=== PATIENT | female | born 1960 | race Caucasian/White ===

== ENCOUNTER 2019-10-26 06:00 | Outpatient (RCR) | payer OTHER, SELFPAY | END 2019-11-25 00:01 | LOC: TPT 06:00 | PROVIDERS: Family Provider Family Medicine; Visit Provider Anesthesiology Pain Medicine | DX: M48.02 Spinal stenosis, cervical region (principal) | CPT/HCPCS: 97110 ×4; 97140 ×2; 97164; 97530 ×3; G0283 ×3 ==

== ENCOUNTER → 2019-12-22 11:28 | Outpatient (BNVA) | payer SELFPAY | PROVIDERS: Family Provider Family Medicine; PCP Family Medicine; Visit Provider Internal Medicine Rheumatology | DX: L93.1 Subacute cutaneous lupus erythematosus (principal) | CPT/HCPCS: 82565; 84460; 85025; 85651; 86140; 86160 ==

== ENCOUNTER → 2020-01-12 10:30 | Outpatient (BNVA) | payer SELFPAY | PROVIDERS: Family Provider Family Medicine; PCP Family Medicine; Visit Provider Internal Medicine Rheumatology | DX: L93.1 Subacute cutaneous lupus erythematosus (principal); Z79.899 Other long term (current) drug therapy; D72.818 Other decreased white blood cell count; K75.4 Autoimmune hepatitis; K74.69 Other cirrhosis of liver | CPT/HCPCS: 36415; 99214 ==

== ENCOUNTER → 2020-01-12 12:00 | Outpatient (BNVA) | payer SELFPAY | PROVIDERS: Family Provider Family Medicine; PCP Family Medicine; Visit Provider Internal Medicine Rheumatology | DX: Z79.899 Other long term (current) drug therapy (principal); M32.9 Systemic lupus erythematosus, unspecified | CPT/HCPCS: 81001; 82306; 82565; 82570; 84156; 85025; 86160 ==

== ENCOUNTER → 2020-01-20 12:24 | Outpatient (BNVA) | payer OTHER, SELFPAY | PROVIDERS: Family Provider Family Medicine; PCP Family Medicine; Visit Provider Specialist | DX: M79.7 Fibromyalgia (principal); G43.909 Migraine, unspecified, not intractable, without status migrainosus; Z87.891 Personal history of nicotine dependence | CPT/HCPCS: 20552; 99214; J1030; J3490 ==

== ENCOUNTER → 2020-01-28 15:26 | Outpatient (BNVA) | payer SELFPAY | PROVIDERS: Family Provider Family Medicine; PCP Family Medicine; Visit Provider Nurse Practitioner Family | DX: K57.92 Diverticulitis of intestine, part unspecified, without perforation or abscess without bleeding (principal) | CPT/HCPCS: 80053; 85025 ==

== ENCOUNTER 2020-02-05 14:14 | Outpatient (CLI) | payer SELFPAY ==
--- NOTE | 2020-02-05 16:30 | CT_ITS ---
WS: [id number] CT CERVICAL SPINE HISTORY: Neck pain TECHNIQUE: Contiguous 2.5 mm axial imaging performed through the entire cervical spine. Sagittal and coronal reformats also performed. All CT scans at [facility] use at least one of these do se optimization techniques: automated exposure control; mA and/or kV adjustment per patient size (inc ludes targeted exams where dose is matched to clinical indication); or iterative reconstruction. DLP: 2193.28 mGycm COMPARISON: 02/25/2018 and MRI 1220 12/03/2018 Straightening of the normal cervical lordosis. Large anterior bridging osteophytes from C3 through C7 . Smaller osteophytes extend posteriorly. Quality of this examination is limited by body habitus. Make Up Editor niectomy site in the posterior LEFT occipital region. Craniocervical junction is normally aligned. Mild disc space narrowing from C3-3-4 through C6-7. No f ractures. Facet joints are normally aligned. C2-C3: Normal. C3-C4: Mild osteophytic ridging and shallow central disc protrusion. Moderate bilateral foraminal lia nosis due to facet disease. C4-C5: Mild osteophytic ridging and facet arthropathy. No stenosis. C5-C6: Diffuse osteophytic ridging. Large osteophytes extend posteriorly and into the foramen. Osteop hyte encroachment upon the ventral thecal sac resulting in severe central and bilateral foraminal lia nosis. C6-C7: Osteophytic ridging asymmetric to the LEFT. Moderate LEFT subarticular recess stenosis and LEF T foraminal stenosis. C7-T1: Normal. Lung apices are clear. Paravertebral soft tissues are negative. CT/CT cervical spin wo con* [id number] IMPRESSION: 1. Mild progression of osteophytosis and degenerative changes since 08/12/2018. 2. Severe central and bilateral foraminal stenosis at C5-6. 3. Moderate LEFT subarticular recess and foraminal stenosis at C6-7. 4. Moderate bilateral foraminal stenosis at C3-4.
== END 2020-02-05 14:15 | disposition home or self-care (01) ==
LOC: RADWPI 14:16
PROVIDERS: Family Provider Family Medicine; PCP Family Medicine; Visit Provider Licensed Practical Nurse
DX: M54.2 Cervicalgia (principal); M50.020 Cervical disc disorder with myelopathy, mid-cervical region, unspecified level; M47.892 Other spondylosis, cervical region; M48.02 Spinal stenosis, cervical region
CPT/HCPCS: 72125

== ENCOUNTER → 2020-03-02 12:43 | Outpatient (BNVA) | payer SELFPAY | PROVIDERS: Family Provider Family Medicine; PCP Family Medicine; Referring Provider Licensed Practical Nurse; Visit Provider Psychiatry & Neurology Neurology | DX: M54.2 Cervicalgia (principal); M79.602 Pain in left arm; Z87.891 Personal history of nicotine dependence | CPT/HCPCS: 95886; 95910 ==

== ENCOUNTER → 2020-04-13 15:24 | Outpatient (BNVA) | payer SELFPAY | PROVIDERS: Family Provider Family Medicine; PCP Family Medicine; Visit Provider Specialist | DX: M50.020 Cervical disc disorder with myelopathy, mid-cervical region, unspecified level (principal); K75.4 Autoimmune hepatitis; G43.711 Chronic migraine without aura, intractable, with status migrainosus; Z87.891 Personal history of nicotine dependence | CPT/HCPCS: 99214 ==

== ENCOUNTER → 2020-06-15 13:24 | Outpatient (BNVA) | payer SELFPAY | PROVIDERS: Family Provider Family Medicine; PCP Family Medicine; Visit Provider Internal Medicine Rheumatology | DX: M32.9 Systemic lupus erythematosus, unspecified (principal); M19.90 Unspecified osteoarthritis, unspecified site; Z79.899 Other long term (current) drug therapy | CPT/HCPCS: 80076; 82565; 85025; 85651; 86140 ==

== ENCOUNTER → 2020-07-19 15:03 | Outpatient (BNVA) | payer SELFPAY | PROVIDERS: Family Provider Family Medicine; PCP Family Medicine; Visit Provider Family Medicine | DX: M54.5 Low back pain (principal); D22.9 Melanocytic nevi, unspecified; Z68.43 Body mass index [BMI] 50.0-59.9, adult; F17.211 Nicotine dependence, cigarettes, in remission; Z71.89 Other specified counseling | CPT/HCPCS: 72100 ==

== ENCOUNTER → 2020-08-12 10:38 | Outpatient (BNVA) | payer SELFPAY | PROVIDERS: Family Provider Family Medicine; PCP Family Medicine; Visit Provider Internal Medicine Rheumatology | DX: Z79.899 Other long term (current) drug therapy (principal) | CPT/HCPCS: 80076; 82565; 85025; 85651; 86140 ==

== ENCOUNTER → 2020-08-24 14:37 | Outpatient (BNVA) | payer SELFPAY | PROVIDERS: Family Provider Family Medicine; PCP Family Medicine; Visit Provider Internal Medicine Rheumatology | DX: L93.1 Subacute cutaneous lupus erythematosus (principal); M79.7 Fibromyalgia; E66.01 Morbid (severe) obesity due to excess calories; K74.69 Other cirrhosis of liver; Z79.899 Other long term (current) drug therapy; D47.3 Essential (hemorrhagic) thrombocythemia; Z68.43 Body mass index [BMI] 50.0-59.9, adult | CPT/HCPCS: 99214 ==

== ENCOUNTER → 2020-08-25 16:08 | Outpatient (BNVA) | payer SELFPAY | PROVIDERS: Family Provider Family Medicine; PCP Family Medicine; Visit Provider Nurse Practitioner Family | DX: M25.572 Pain in left ankle and joints of left foot (principal); R60.9 Edema, unspecified | CPT/HCPCS: 73610 ==

== ENCOUNTER 2020-08-30 01:36 | Emergency (ER) | payer SELFPAY ==
[2020-08-30 01:40] VITALS: BP 172/72; PULSE 112; RESP 28; TEMP 36.6; O2SAT 94; BMI 48.4
--- NOTE | 2020-08-30 01:54 | CTR_ITS ---
PROCEDURE INFORMATION: Exam: CT Head Without Contrast Exam date and time: 08/30/2020 1:59 AM Age: 59 years old Clinical indication: Dizziness; Prior surgery; Surgery date: 6+ months; Surgery type: Brain tumor removed; Additional info: Dizzy TECHNIQUE: Imaging protocol: Computed tomography of the head without contrast. Radiation optimization: All CT scans at this facility use at least one of these dose optimization techniques: automated exposure control; mA and/or kV adjustment per patient size (includes targeted exams where dose is matched to clinical indication); or iterative reconstruction. COMPARISON: CT head wo con* [id number] 02/25/2018 4:58 PM RADIATION DOSE METRICS: Total DLP (mGy-cm): 790.03 FINDINGS: Brain: No acute intracranial hemorrhage or mass effect. No definite acute infarct by CT. MRI could be more sensitive/specific for detection, as clinically directed. Cerebral ventricles: Ventricle size is normal for age. Bones/joints: No definite acute skull fracture. Low left occipital craniotomy again present. Paranasal sinuses: Included paranasal sinuses are essentially clear. Mastoid air cells: No significant acute finding. Auditory system: Asymmetric enlargement of the left internal auditory canal, not significantly changed. Suspect this is related to presumed prior surgery for left acoustic neuroma. If clinically needed, MRI would be more sensitive for detecting residual or recurrence neoplasm. Vasculature: Vascular calcifications in the internal carotid and vertebral basilar systems. CT/CT head wo con* [id number] IMPRESSION: 1. No acute intracranial hemorrhage or mass effect. 2. No definite acute infarct by CT, see above. 3. Postsurgical changes as discussed above. 4. Other findings discussed above. Radiation Dose CTDIVOL = (mGy): DLP = 790.03 (mGy-cm)
--- NOTE | 2020-08-30 01:54 | XR_ITS ---
WS: [id number] Portable AP upright chest, 08/30/2020 Clinical Data: dizzy Comparison: Portable chest, 11/07/2018. Findings: No nodules, masses or effusions are seen. The heart is normal. The pulmonary vascularity is not increased. No pneumonia or pneumothorax is seen. XR/XR chest 1V portable [id number] Impression: Negative chest.
--- NOTE | 2020-08-30 01:55 | ECG_ITS ---
[facility] Test Date: 2020-08-30 Pat Name: Verónica Pat Department: Room: Gender: Female Senior Officer: : 1960 Requested By: Tim Purvis Order Number: [id number] Margarito MD: Jhonathan Mendoza M.D. Measurements Intervals [place] Rate: 90 P: -5 TN: 116 QRS: 46 QRSD: 87 T: 56 QT: 350 QTc: 430 Interpretive Statements SINUS RHYTHM WITH SHORT TN INTERVAL LOW QRS VOLTAGE IN PRECORDIAL LEADS [QRS DEFLECTION < 1.0 mV IN CHEST LEADS] Compared to ECG 07/12/2019 17:59:04 T-wave abnormality no longer present Electronically Signed On 08-30-2020 17:27:24 CDT by Jhonathan Mendoza M.D. [id number]
[2020-08-30] MEDS: sodium chloride 0.9% 1,000 ML 999 ML IV (02:40)
--- NOTE | 2020-08-30 02:43 | W.ED.DIZZY ---
HPI - Dizziness General: Chief Complaint: Dizziness Stated Complaint: DIZZY Time Seen by Provider: 08/30/20 01:43 History of Present Illness: HPI Narrative: 59-year-old female who experienced sudden onset of dizziness and blurred vision around midnight, when she got up to change clothes before bed. Notes that she could not see the shorts she was tried to put on for a second because of blurred vision. She called an ambulance, and after the ambulance arrived, her vision began to improve. She was able to see to walk outside and get on the ambulance herself. She states that she still feels somewhat dizzy. But not nearly as dizzy as she did when she called the ambulance. She denies any weakness or numbness. She does state that she has had a swollen left more than right lower extremity, for which she was placed on Lasix 3 days ago. MD elicited complaint: dizziness and lightheadedness Timing: sudden onset Severity: moderate Description: sense of movement, room spinning and lightheadedness Context: change in medication History of similar symptoms: No Relieving factors: nothing Associated symptoms: Reports nausea; Denies change in hearing, chest pain, chills, diaphoresis, fevers/chills, headache(s) or vomiting Associated neuro symptoms: Deny difficulty speaking, dysphagia, extremity weakness, facial weakness or numbness in extremities Review of Systems Const: Denies: chills or diaphoresis Eyes: Denies: change in vision or blurry vision ENMT: Denies: change in hearing Card: Denies: chest pain Resp: Denies: dyspnea, productive cough, non-productive cough or wheezing GI: Reports: nausea; Denies: vomiting or dysphagia : Denies: dysuria or hematuria Musc: Denies: neck pain or joint warmth Skin/Breast: Denies: rash, pruritus or erythema Neuro: Denies: headache(s) or numbness in extremities Psych: Denies: anxiety PFSH ED PFSH: Medical History (Updated 08/30/20 @ 04:40 by Tim Armijo DO) Autoimmune hepatitis Cervical disc disorder with myelopathy of mid-cervical region Cirrhosis of liver Fibromyalgia High risk medication use Immunization counseling Leukopenia SLE (systemic lupus erythematosus) Spondylolisthesis, cervical region 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 Occipital craniotomy History of surgery on arm LEFT Family History Other CAD (coronary artery disease) Cancer Hypertension Stroke Denies family history of Rheumatoid arthritis Diabetes Lupus Social History Smoking and tobacco status: former smoker Alcohol intake: never Lives independently: Yes Marital status: Current occupational status: unemployed History of recent travel: No Physical Exam Const: COMMON NORMALS: patient oriented x3 GENERAL APPEARANCE: well developed ORIENTATION/CONSCIOUSNESS: Yes oriented to person, Yes oriented to place and Yes oriented to time HENMT: COMMON NORMALS: normocephalic and external ears normal HEAD & SCALP: normocephalic EXTERNAL EAR: Yes external ears normal Eye: COMMON NORMALS: Equal, round and reactive pupils present, EOMs intact bilaterally and conjunctivae normal EYELID: eyelids normal CONJUNCTIVA: Yes conjunctivae normal PUPIL: Yes Equal, round and reactive pupils present Neck/C-Spine: GENERAL: No tracheal deviation Chest: COMMONS NORMALS: normal inspection of the chest CHEST: No tenderness Resp: COMMON NORMALS: clear to auscultation bilaterally EFFORT & INSPECTION: No tachypneic, No respiratory distress, No retractions, No uses accessory muscles and No tracheal deviation AUSCULTATION: clear to auscultation bilaterally, no rhonchi, no wheezes and lung sounds not diminished Cardio: COMMON NORMALS: regular rate and regular rhythm RATE: regular rate RHYTHM: regular rhythm HEART SOUNDS: no murmurs PERIPHERAL PULSES: radial pulses present GI: INSPECTION: No abdominal distension AUSCULTATION: No Hyperactive bowel sounds present and No Hypoactive bowel sounds present PALPATION: No Guarding due to palpation present (GI) and No Rigid due to palpation PERCUSSION: no dullness to percussion and no tympanic to percussion Neuro: COMMON NORMALS: patient oriented x3, moves all extremities, no focal motor deficits and no sensory deficits noted SENSORIUM/ORIENTATION: Yes oriented to person, Yes oriented to place and Yes oriented to time Psych: COMMON NORMALS: mental status grossly normal Skin: COMMON NORMALS: no rashes or lesions noted GENERAL SKIN EXAM: no rashes or lesions noted Course Vital Signs: Vital signs: Vital Signs Temperature 97.8 F 08/30/20 01:40 Pulse Rate 85 08/30/20 04:08 Respiratory Rate 16 08/30/20 04:08 Blood Pressure 119/9 08/30/20 04:08 Pulse Oximetry 95 08/30/20 04:08 MDM - Dizziness MDM Narrative: Medical decision making narrative: 59-year-old female with transient vision changes and dizziness. She is resolved in terms of symptoms currently. Her CT scan shows no acute intracranial hemorrhage or mass-effect. There are some postsurgical changes that appear chronic. There is no evidence of an infarct. Her NIH scale is essentially 0 now. Her other laboratory shows a white blood cell count of 3.6 with thrombocytopenia, which is an ongoing problem for her. Her creatinine is 1.6 which is just slightly above baseline. She is received some IV fluid here. Her blood pressure currently is 126/67. Her saturations are 95% on room air. With resolution of her symptoms, and findings above, we will allow her home. Lab Data: Labs: Lab Results 08/30/20 08/30/20 08/30/20 Range/Units 02:40 02:40 02:40 WBC 3.6 L (4.0-10.0) 10^3/ uL RBC 3.61 L (4.1-5.3) 10^6/u L Hgb 11.6 (11.5-15.3) g/dL Hct 35.6 L (37.0-47.0) % MCV 98.6 (81-99) fL MCH 32.1 (28.0-34.0) pg MCHC 32.6 (30.0-36.0) g/dL RDW 13.2 (12.1-15.1) % Plt Count 98 L (130-400) 10^3/c mm MPV 12.7 H (7.4-10.4) fL Neut % (Auto) 74.1 % Lymph % (Auto) 12.0 % [place] % (Auto) 10.9 % Eos % (Auto) 1.9 % Baso % (Auto) 0.8 % Neut # (Auto) 2.66 (1.8-7.7) 10^3/u L Lymph # (Auto) 0.4 L (0.8-4.8) 10^3/u L [place] # (Auto) 0.4 (0.2-0.9) 10^3/u L Eos # (Auto) 0.1 (0.0-0.8) 10^3/u L Baso # (Auto) 0.0 (0.0-0.1) 10^3/u L Nucleated RBC % (a uto) 0 % Nucleated RBCs # 0.0 /100WBC PT 13.30 (12.1-14.9) SECO NDS INR 0.98 (0.8-1.2) APTT 24.8 (23.9-36.7) SECO NDS Sodium 136 (136-145) mmol/L Potassium 4.2 (3.5-5.1) mmol/L Chloride 101 (98-107) mmol/L Carbon Dioxide 23 (22-29) mmol/L Anion Gap 16.2 (5-19) BUN 8 (8-23) mg/dL Creatinine 1.6 H (0.5-0.9) mg/dL GFR Calculation 32.9 L (90-130) mL/min Glucose 132 H (65-115) mg/dL Calculated Osmolal ity 282 L (285-295) mOsm/k g Calcium 9.6 (8.5-10.5) mg/dL Magnesium 1.8 (1.7-2.3) mg/dL Total Bilirubin 0.4 (0.15-1.2) mg/dL AST 22 (0-32) U/L ALT 21 (0-33) U/L Alkaline Phosphata se 76 (35-105) IU/L Creatine Kinase 94 (26-192) U/L NT-Pro-B Natriuret Pep 74 (0-125) pg/mL Total Protein 7.0 (6.6-8.7) g/dL Albumin 4.0 (3.5-5.2) g/dL Globulin 3.0 (1.3-4.6) g/dL Urine Color (Yellow) Urine Appearance (CLEAR) Urine pH (5-7) Ur Specific Gravit y (1.005-1.030) Urine Protein (Negative) Urine Glucose (UA) (Normal) Urine Ketones (Negative) Urine Blood (Negative) Urine Nitrate (Negative) Urine Bilirubin (Negative) Urine Urobilinogen (Negative) mg/dL Ur Leukocyte Kiara ase (Negative) 08/30/20 Range/Units 02:45 WBC (4.0-10.0) 10^3/ uL RBC (4.1-5.3) 10^6/u L Hgb (11.5-15.3) g/dL Hct (37.0-47.0) % MCV (81-99) fL MCH (28.0-34.0) pg MCHC (30.0-36.0) g/dL RDW (12.1-15.1) % Plt Count (130-400) 10^3/c mm MPV (7.4-10.4) fL Neut % (Auto) % Lymph % (Auto) % [place] % (Auto) % Eos % (Auto) % Baso % (Auto) % Neut # (Auto) (1.8-7.7) 10^3/u L Lymph # (Auto) (0.8-4.8) 10^3/u L [place] # (Auto) (0.2-0.9) 10^3/u L Eos # (Auto) (0.0-0.8) 10^3/u L Baso # (Auto) (0.0-0.1) 10^3/u L Nucleated RBC % (a uto) % Nucleated RBCs # /100WBC PT (12.1-14.9) SECO NDS INR (0.8-1.2) APTT (23.9-36.7) SECO NDS Sodium (136-145) mmol/L Potassium (3.5-5.1) mmol/L Chloride (98-107) mmol/L Carbon Dioxide (22-29) mmol/L Anion Gap (5-19) BUN (8-23) mg/dL Creatinine (0.5-0.9) mg/dL GFR Calculation (90-130) mL/min Glucose (65-115) mg/dL Calculated Osmolal ity (285-295) mOsm/k g Calcium (8.5-10.5) mg/dL Magnesium (1.7-2.3) mg/dL Total Bilirubin (0.15-1.2) mg/dL AST (0-32) U/L ALT (0-33) U/L Alkaline Phosphata se (35-105) IU/L Creatine Kinase (26-192) U/L NT-Pro-B Natriuret Pep (0-125) pg/mL Total Protein (6.6-8.7) g/dL Albumin (3.5-5.2) g/dL Globulin (1.3-4.6) g/dL Urine Color Yellow (Yellow) Urine Appearance Clear (CLEAR) Urine pH 5 (5-7) Ur Specific Gravit y 1.010 (1.005-1.030) Urine Protein Neg (Negative) Urine Glucose (UA) Norm (Normal) Urine Ketones Negative (Negative) Urine Blood Neg (Negative) Urine Nitrate Negative (Negative) Urine Bilirubin Neg (Negative) Urine Urobilinogen Norm (Negative) mg/dL Ur Leukocyte Kiara ase Negative (Negative) Discharge Plan Discharge Patient Disposition: Home Clinical Impression: Vertigo Condition: Stable Prescriptions: New meclizine 25 mg tablet 12.5 mg PO TID PRN (Reason: dizziness) Qty: 14 RF: 0 No Action bupivacaine (PF) 0.25 % (2.5 mg/mL) solution 2 ml peripheral nerve block ONCE Qty: 1 RF: 0 hydroxychloroquine 200 mg tablet 300 mg PO DAILY Qty: 45 RF: 3 olmesartan 20 mg tablet See Rx Instructions .ROUTE .COMPLEX Qty: 90 RF: 0 cyclobenzaprine 10 mg tablet See Rx Instructions .ROUTE .COMPLEX Qty: 60 RF: 5 potassium chloride 10 mEq capsule, extended release 10 meq PO DAILY Qty: 7 RF: 0 furosemide [Lasix] 20 mg tablet 20 mg PO QAM Qty: 7 RF: 0 mupirocin 2 % ointment 1 applic TOPICAL BID Qty: 22 RF: 0 sulfamethoxazole-trimethoprim [Bactrim DS] 800-160 mg tablet 1 tab PO BID 10 Days Qty: 20 RF: 0 propranolol 10 mg tablet 10 mg PO BID RF: 0 Ca-D3-mag fv-nqfq-yyh-stacia-bor [Calcium 600-D3 Plus (mag-zinc)] 600 mg calcium- 800 unit-50 mg tablet PO BID RF: 0 lactulose 10 gram/15 mL solution 20 gm PO QID RF: 0 escitalopram oxalate 20 mg tablet See Rx Instructions .ROUTE .COMPLEX Qty: 90 RF: 0 Discharge Orders: Discharge Order (Routine); Ordered 08/30/20 Ordered By: Tim Armijo Referrals: Stephanie Tipton MD [Primary Care Provider] - 4-7 days Discharge Diet: Advance as tolerated Discharge Activity: Increase activity as tolerated Patient Instructions: Vertigo (ED) Activity Restrictions/Additional Instructions: Return for any return of your symptoms such as dizziness, vision changes, weakness, trouble finding words, or other language problems, fever greater than 100, other concerning symptoms. Make sure you stay hydrated the next couple of days Coding Level of Care Code ED Poultry Processing Supervisor for Chg Fwd Exam Comprehensive
[2020-08-30 03:04] LABS: Basophils % 0.8 %; Eosinophils # 0.1 10^3/uL (0.0-0.8); Eosinophils % 1.9 %; Hematocrit 35.6 % (37.0-47.0); Hemoglobin 11.6 g/dL (11.5-15.3); Lymphocytes # 0.4 10^3/uL (0.8-4.8); Mean Corpuscular HGB Conc 32.6 g/dL (30.0-36.0); Mean Corpuscular Hemoglobin 32.1 pg (28.0-34.0); Mean Corpuscular Volume 98.6 fL (81-99); Mean Platelet Volume 12.7 fL (7.4-10.4); Monocytes # 0.4 10^3/uL (0.2-0.9); Monocytes % 10.9 %; Neutrophils # 2.66 10^3/uL (1.8-7.7); Neutrophils % 74.1 %; Nucleated Red Blood Cells % 0 %; Platelet Count 98 10^3/cmm (130-400); Red Blood Count 3.61 10^6/uL (4.1-5.3); Red Cell Distribution Width 13.2 % (12.1-15.1); White Blood Count 3.6 10^3/uL (4.0-10.0)
[2020-08-30 03:12] LABS: Add Urine Microscopic? NO
[2020-08-30 03:13] LABS: Bilirubin Urine Neg (Negative); Blood Urine Neg (Negative); Glucose Urine UA Norm (Normal); Ketones Urine Negative (Negative); Leukocyte Esterase Urine Negative (Negative); Nitrate Urine Negative (Negative); Protein Urine Neg (Negative); Urine Appearance Clear (CLEAR); Urine Color Yellow (Yellow); Urobilinogen Urine Norm (Negative); pH Urine 5 (5-7)
[2020-08-30 03:26] LABS: INR 0.98 (0.8-1.2)
[2020-08-30 03:27] LABS: Partial Thromboplastin Time 24.8 SECONDS (23.9-36.7)
[2020-08-30 03:35] LABS: Alanine Aminotransferase 21 U/L (0-33); Alkaline Phosphatase 76 IU/L (35-105); Anion Gap 16.2 (5-19); Aspartate Amino Transferase 22 U/L (0-32); Blood Urea Nitrogen 8 mg/dL (8-23); Calcium 9.6 mg/dL (8.5-10.5); Carbon Dioxide 23 mmol/L (22-29); Chloride 101 mmol/L (98-107); Creatine Phosphokinase 94 U/L (26-192); Glomerular Filtration Rate 32.9 mL/min (90-130); Glucose 132 mg/dL (65-115); Magnesium 1.8 mg/dL (1.7-2.3); NT Pro B Type Natriuretic Pept 74 pg/mL (0-125); Osmolality Calculated 282 mOsm/kg (285-295); Potassium 4.2 mmol/L (3.5-5.1); Sodium 136 mmol/L (136-145); Total Bilirubin 0.4 mg/dL (0.15-1.2)
[2020-08-30 04:08] VITALS: BP 119/9; PULSE 85; RESP 16; O2SAT 95
--- NOTE | 2020-08-30 04:15 | PC.NURSE ---
during pt rounds, pt requesting water. OK by physician
[2020-08-30 05:00] VITALS: BP 143/65; PULSE 85; RESP 18; O2SAT 96
--- NOTE | 2020-08-30 05:56 | PC.NURSE ---
i agree with this assessment
[2020-08-30 06:07] VITALS: BP 135/68; PULSE 86; RESP 18; O2SAT 94
== END 2020-08-30 06:08 | disposition home or self-care (01) ==
PROVIDERS: Emergency Provider Emergency Medicine; PCP Family Medicine
DX: R42 Dizziness and giddiness (principal); M32.9 Systemic lupus erythematosus, unspecified; Z87.891 Personal history of nicotine dependence
CPT/HCPCS: 12345; 70450; 71045; 80053; 81003; 82550; 83735; 83880; 85025; 85610; 85730; 93005; 96360; 99283; 99284; J7030

== ENCOUNTER → 2020-09-01 17:24 | Outpatient (BNVA) | payer SELFPAY | PROVIDERS: PCP Family Medicine; Visit Provider Family Medicine | DX: N28.9 Disorder of kidney and ureter, unspecified (principal); R42 Dizziness and giddiness; M32.9 Systemic lupus erythematosus, unspecified; R76.8 Other specified abnormal immunological findings in serum; Z79.899 Other long term (current) drug therapy | CPT/HCPCS: 80053; 86160; 86225; 86235 ==

== ENCOUNTER → 2020-10-19 15:53 | Outpatient (BNVA) | payer OTHER, SELFPAY | PROVIDERS: PCP Family Medicine; Visit Provider Nurse Practitioner Family | DX: Z11.59 Encounter for screening for other viral diseases (principal); J06.9 Acute upper respiratory infection, unspecified | CPT/HCPCS: 87635 ==

== ENCOUNTER 2020-10-25 13:33 | Outpatient (CLI) | payer SELFPAY ==
[2020-10-25 16:33] LABS: Basophils # 0.1 10^3/uL (0.0-0.1); Basophils % 0.9 %; Eosinophils % 0.2 %; Hemoglobin 11.5 g/dL (11.5-15.3); Lymphocytes # 0.8 10^3/uL (0.8-4.8); Lymphocytes % 14.5 %; Mean Corpuscular HGB Conc 31.9 g/dL (30.0-36.0); Mean Corpuscular Hemoglobin 31.8 pg (28.0-34.0); Mean Corpuscular Volume 99.4 fL (81-99); Mean Platelet Volume 12.3 fL (7.4-10.4); Monocytes # 0.3 10^3/uL (0.2-0.9); Monocytes % 4.6 %; Neutrophils # 4.47 10^3/uL (1.8-7.7); Neutrophils % 79.3 %; Nucleated Red Blood Cells % 0 %; Platelet Count 128 10^3/cmm (130-400); Red Blood Count 3.62 10^6/uL (4.1-5.3); Red Cell Distribution Width 13.3 % (12.1-15.1); White Blood Count 5.6 10^3/uL (4.0-10.0)
--- NOTE | 2020-10-25 17:00 | ONC CON_ITS ---
Dr. Marin New Patient Note Patient: Verónica Pat Unit #: [id number]: 1960 Dicatated By: Jerel Marin M.D.Date of Visit: Oct 25, 2020 Onc MED New Patient/Consult Referring Physician: Dr. Terrance Zamarripa M.D. Chief Complaint: Pancytopenia. History of Present Illness: This is a 59 year-old woman with mild pancytopenia. 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 She has been treated with hydroxychloroquine. She has additional history of liver cirrhosis, presumably due to autoimmune hepatitis, apparently diagnosed by liver biopsy in 2008. She has been on treatment with azathioprine, but that was recently stopped due multiple blood counts showing mild pancytopenia. The most recent CBC, from August 30, 2020 showed hemoglobin 11.6 g with hematocrit 35.6%. The red cell indices were borderline high. The white blood cell count was 3600 with the differential showing 74% neutrophils, 12% lymphocytes, 10% monocytes, and 1% eosinophils. In reviewing her records in [facility] she has had a total of 6 blood counts done here during 2019, all showing mild anemia with hemoglobin levels in the range of 11 g, mild leukopenia ranging from 2802-6281, and mild thrombocytopenia ranging from 88,002 122,000. There have been multiple previous CBCs dating back to 2013, and as far back as 2016 all of these show similar findings with just one exception, which I suspect was not an accurate result. A CT abdomen/pelvis from 07 12 2019 showed mildly irregular liver margins suggesting cirrhosis. Also noted was chronic splenomegaly, with the spleen measuring 4.2 cm long. There was no acute process noted at that time. She says she feels like crap. She has poor energy and she has very limited activity tolerance. Her ECOG score is 2. Appetite is not good. She says she eats only once a day, but she has had significant weight gain in the last couple of months, which she estimates is in the range of 20 to 30 pounds. She has not had fever. She does have sweating, which she attributes to steroid. She had hearing loss on the left following her acoustic neuroma surgery. She has sinus drainage and she says she has cough every morning when she first wakes up. She occasionally has cough at night and she also sometimes has coughing spells. She is short of breath with any activity. She does not complain of chest pain. She has nausea at least 3-4 times a week and she sometimes has acid reflux. She has loose stools or diarrhea with her medication. She has not been aware of any blood in the stool. She has no complaints. She has severe neck and back pain, to the point that for the past 2 months she can hardly do anything. She also has fibromyalgia pain. She has daily headache and recently she has been having episodes of dizziness. She has no focal neurologic symptoms. Past Medical History: Her medical history includes autoimmune hepatitis, cirrhosis of liver, cutaneous lupus, degenerative disease of the spine with spinal stenosis, and fibromyalgia. Past Surgical History: Her surgical/procedural history includes cholecystectomy, tubal ligation, open reduction for left arm fracture in 2010, reconstructive surgery following the acoustic neuroma resection in 2009, and occipital craniotomy for resection of acoustic neuroma in 2008. Medications: Cyclobenzaprine HCl 1 Tablet (of 10 mg) Oral at bedtime, Doxycycline Hyclate 1 Capsule (of 100 mg) Oral b.i.d. for 10 days, Escitalopram Oxalate 1 Tablet (of 20 mg) Oral daily, Gabapentin 1 Tablet (of 300 mg) Capsule Oral at bedtime, Hydroxychloroquine Sulfate 1 Tablet (of 200 mg) Oral b.i.d., Mupirocin (2 %) Ointment Topical b.i.d., Promethazine-DM 5 - 10 mL (of 6.25-15 mg/5mL) Syrup Oral q 6 hours PRN, Propranolol HCl 1 Tablet (of 10 mg) Oral b.i.d. Allergies: Acyclovir, Meperidine HCl, and Penicillins. Social History: Ms. Pat is . She has a history of smoking 1 pack of cigarettes daily for 5 or 6 years. She quit smoking in 1993. She does not drink alcohol. Family History: Father of kidney failure at age 77. Mother is still living at age 87 and she is being treated for breast cancer. A brother of a brain tumor. Review Of Symptoms: Constitutional - She says she feels like crap. She has poor energy and she is very limited activity. She does not have good appetite. She says she eats only once a day, which she has had significant weight gain in the past 1 to 2 months. She has not had fever. She does have sweating, which she attributes to being on steroid. ECOG score is 2, Eyes - She has had some decline in visual acuity, ENMT - She had hearing loss following her acoustic neuroma surgery. She has sinus congestion/drainage. No mouth sores. No sore throat or difficulty swallowing, Hematologic/Lymphatic - No abnormal bruising or bleeding, Respiratory - She has shortness of breath. She has cough when she first gets up in the morning and she occasionally has cough at night. She also sometimes has coughing spells. No pleuritic pain or hemoptysis, Cardiovascular - No angina pain. No palpitations, Gastrointestinal - She gets nauseated at least 3 or 4 times a week. She sometimes has acid reflux. She has loose stools/diarrhea. No blood in the stool or black stools, Genitourinary (F) - No dysuria or hematuria. No urinary frequency. No urgency or incontinence, Musculoskeletal - She has neck and back pain and she has fibromyalgia pain, Integumentary - She has cutaneous lupus. She has occasional flareups, Neurologic - She has headaches daily. She has episodes of dizziness. No numbness or tingling. No other focal neurologic symptoms, Psychiatric - She has a lot of anxiety, but not depression. She has difficulty sleeping. Vital Signs: Performed on Oct 25, 2020 14:10: 4, 50.68 (HIGH), 2.42 sq.m, 66 in, 95 % (LOW), 89 /min, 20 /min, 177/74 mm(hg) (HIGH), 97.9 F (LOW), and 314.0 lbs (HIGH). Physical Examination: Constitutional - She appears somewhat weak generally and she appears short of breath with effort, Eyes - Sclerae nonicteric. Conjunctivae clear, ENMT - No lesions noted in the oral cavity, Neck - No mass or thyromegaly, Hematologic/Lymphatic - No cervical, clavicular, or axillary adenopathy, Respiratory - Lungs sound clear with good air movement bilaterally, Cardiovascular - Heart rhythm is regular. There is no murmur, gallop, or rub noted, Abdomen - Distended. Liver and spleen do not appear overtly enlarged. There is no abdominal mass or ascites noted and there is no inguinal adenopathy, Back/Spine - No spine or CVA tenderness noted, Extremities - No edema. Dorsalis pedis pulses are palpable bilaterally, Integumentary - There is a rough, pigmented lesion on the dorsum of the right wrist. There are no suspicious skin lesions noted, Neurologic - No focal neurologic deficits noted. Impression: 1. Patient with longstanding, mild pancytopenia. This is likely multifactorial. At least some component is almost certainly due to cirrhosis/hypersplenism, but some also may be medication related. The other major concern would be the possibility of myelodysplastic syndrome, but that would appear to be very unlikely in this situation. 2. She has known liver cirrhosis, presumably due to autoimmune hepatitis. She has been on treatment with azathioprine. 3. She has cutaneous lupus for which she has been on treatment with hydroxychloroquine. Her other medical illnesses include: 4. Degenerative disease of the spine with cervical spinal stenosis. 5. Fibromyalgia. 6. Obesity. 7. She would appear to be at high risk for obstructive sleep apnea. 8. In 2009 she underwent craniotomy for resection of acoustic neuroma on the left and she has had subsequent hearing loss. Plan: The laboratory findings reviewed with the patient and we discussed the clinical implications. I think the major cause for the pancytopenia is the cirrhosis and hypersplenism, though her medications also could be a contributing factor. She will be scheduled for additional laboratory studies today to include CBC, comprehensive metabolic profile, reticulocyte count, LDH level, haptoglobin level, serum iron studies and ferritin, B12 and folate levels, sed rate, and TSH level. I will review the blood smear. She will have further evaluation as indicated. In the meantime, I also will request records from [facility] regarding her more recent abdominal imaging studies. Signed By: Jerel Marin M.D. <<Signature on File>>
[2020-10-25 17:15] LABS: Ferritin 145 ng/mL (15-150); Iron 157 ug/dL (37-145); Percent Saturation 47.1 % (20-50); Total Iron Binding Capacity 333 mcg/dl; Unsaturated Iron Binding 176 ug/dL (112-347)
[2020-10-25 17:29] LABS: Alanine Aminotransferase 25 U/L (0-33); Albumin Level 4.3 g/dL (3.5-5.2); Alkaline Phosphatase 75 IU/L (35-105); Anion Gap 18.4 (5-19); Aspartate Amino Transferase 20 U/L (0-32); Blood Urea Nitrogen 14 mg/dL (8-23); Calcium 9.6 mg/dL (8.5-10.5); Carbon Dioxide 24 mmol/L (22-29); Chloride 97 mmol/L (98-107); Glomerular Filtration Rate 38.4 mL/min (90-130); Glucose 129 mg/dL (65-115); Lactate Dehydrogenase 337 U/L (135-214); Osmolality Calculated 280 mOsm/kg (285-295); Potassium 5.4 mmol/L (3.5-5.1); Sodium 134 mmol/L (136-145); Thyroid Stimulating Hormone 1.97 uIU/mL (0.27-4.20); Total Bilirubin 0.7 mg/dL (0.15-1.2); Total Protein 7.3 g/dL (6.6-8.7); Vitamin B12 414 pg/mL (232-1245)
[2020-10-25 17:36] LABS: Folate Level 7.5 ng/mL (4.8-37.3)
[2020-10-25 17:38] LABS: Erythrocyte Sedimentation Rate 44 mm/hr (0-15)
== END 2020-10-25 13:34 | disposition home or self-care (01) ==
LOC: ONCMED 13:35
PROVIDERS: PCP Family Medicine; Visit Provider Internal Medicine Medical Oncology
DX: D61.818 Other pancytopenia (principal); K74.60 Unspecified cirrhosis of liver; D73.1 Hypersplenism; K75.4 Autoimmune hepatitis; L93.1 Subacute cutaneous lupus erythematosus; M48.02 Spinal stenosis, cervical region; M79.7 Fibromyalgia; E66.9 Obesity, unspecified; Z87.891 Personal history of nicotine dependence; Z79.899 Other long term (current) drug therapy
CPT/HCPCS: 36415; 80053; 82607; 82728; 82746; 83010; 83540; 83550; 83615; 84443; 85025; 85045; 85651; 99205

== ENCOUNTER → 2020-12-02 16:08 | Outpatient (BNVA) | payer SELFPAY | PROVIDERS: PCP Family Medicine; Visit Provider Family Medicine | DX: R05 Cough (principal); R50.9 Fever, unspecified; J01.90 Acute sinusitis, unspecified | CPT/HCPCS: 87400; 87635 ==

== ENCOUNTER 2021-01-19 13:11 | Outpatient (CLI) | payer SELFPAY ==
--- NOTE | 2021-01-19 13:14 | XR_ITS ---
WS: [id number] LUMBAR SPINE: 6 VIEWS TECHNIQUE: AP, lateral, and L5-S1 spot. Lateral views in neutral, flexion and extension. HISTORY: low back pain COMPARISON: 07/19/2020 Lumbar vertebra are normally aligned. Disc spaces are normal. Small endplate osteophytes. Very mild facet joint arthritis at L4-5 and L5-S1 . No instability with flexion or extension. SI joints are symmetric bilaterally. No soft tissue abnormalities. Prior cholecystectomy. XR/XR lumbar spine min 4V [id number] IMPRESSION: 1. No lumbar spine instability or fracture. 2. Mild lumbar spondylosis.
== END 2021-01-19 13:12 | disposition home or self-care (01) ==
PROVIDERS: PCP Family Medicine; Visit Provider Family Medicine
DX: M47.816 Spondylosis without myelopathy or radiculopathy, lumbar region (principal)
CPT/HCPCS: 72110

== ENCOUNTER → 2021-01-20 15:13 | Outpatient (BNVA) | payer SELFPAY | PROVIDERS: PCP Family Medicine; Visit Provider Internal Medicine Medical Oncology | DX: L93.1 Subacute cutaneous lupus erythematosus (principal); D64.9 Anemia, unspecified; Z79.899 Other long term (current) drug therapy | CPT/HCPCS: 80053; 80076; 81003; 82105; 82565; 82570; 83540; 84156; 85025; 85651; 86140 ==

== ENCOUNTER 2021-01-25 12:21 | Outpatient (CLI) | payer SELFPAY ==
--- NOTE | 2021-01-26 08:48 | ONC FU_ITS ---
Dr. Marin Patient Follow-Up Note Patient: Verónica Pat Unit #: [id number]: 1960 Dicatated By: Jerel Marin M.D.Date of Visit:Jan 25, 2021 Onc Med Follow-up/Prog Note Chief Complaint: Pancytopenia. History of Present Illness: This is a 60 year-old woman with mild pancytopenia. 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 She has been treated with hydroxychloroquine. She has additional history of liver cirrhosis, presumably due to autoimmune hepatitis, apparently diagnosed by liver biopsy in 2008. She has been on treatment with azathioprine, but that was recently stopped due multiple blood counts showing mild pancytopenia. The most recent CBC, from August 30, 2020 showed hemoglobin 11.6 g with hematocrit 35.6%. The red cell indices were borderline high. The white blood cell count was 3600 with the differential showing 74% neutrophils, 12% lymphocytes, 10% monocytes, and 1% eosinophils. I had seen her initially on 10/25/2020. In reviewing her records in [facility] she has had a total of 6 blood counts done here during 2019, all showing mild anemia with hemoglobin levels in the range of 11 g, mild leukopenia ranging from 5050-4168, and mild thrombocytopenia ranging from 88,002 122,000. There had been multiple previous CBCs dating back to 2013, and as far back as 2016 all of these had shown similar findings with just one exception, which I suspect was not an accurate result. A CT abdomen/pelvis from 07/12/2019 showed mildly irregular liver margins suggesting cirrhosis. Also noted was chronic splenomegaly. There was no acute process noted at that time. Her laboratory studies from 10/25/2020 included CBC showing hemoglobin 11.5 g, white blood cell count 5600, and platelet count 128,000. The red cell indices were borderline high. Sed rate was mildly elevated at 44 mm/h. LDH was mildly elevated at 337 U/L but with normal haptoglobin 148.0 mg/L. Comprehensive metabolic profile showed elevated BUN and creatinine at 14 and 1.4 mg/dL. The bilirubin and liver enzymes were normal. The serum iron studies showed normal transferrin saturation at 47% with ferritin normal at 145 ng/mL. B12 is normal at 414 pg/mL and folate was normal at 7.5 ng/mL. Overall, the findings appeared most consistent with pancytopenia due to hypersplenism, but with the hydroxychloroquine and/or azathioprine also being potential contributing factors. In the absence of any evidence of a progressive process, I opted to follow her expectantly. She is seen for a scheduled visit. Her main complaint is that she has been having pretty severe pain across the top of her buttocks and extending to the lower back. She says the pain is severe enough that it causes her to lose her breath. It is limiting her activity. Her ECOG score is 3. Her appetite is not good, she has gained weight. She does not have fever or night sweats. She has been having some difficulty swallowing. She has shortness of breath and she has cough off and on. She does not complain of chest pain. She has nausea, occasionally with vomiting. She has occasional acid reflux. Her bowels tend to be loose. She has frequent urination with her diuretic. She has headaches and she also complains of dizziness. She complains that her left leg goes numb and recently it has been swelling. Medications: Benicar 1 (20 mg) Tablet Oral daily, Calcium + D3 1 (600-800 mg - Units) Tablet Oral daily, Cyclobenzaprine HCl 1 Tablet (of 10 mg) Oral at bedtime, Escitalopram Oxalate 1 Tablet (of 20 mg) Oral daily, Gabapentin (600 mg) Capsule Oral Take as Directed, Hydroxychloroquine Sulfate 1 Tablet (of 200 mg) Oral b.i.d., K-Tab 1 (10 meq) Tablet, controlled release Oral daily, Lasix 1 (40 mg) Tablet Oral every am, Propranolol HCl 1 Tablet (of 10 mg) Oral b.i.d. Allergies: Acyclovir, Meperidine HCl, and Penicillins. Vital Signs: Performed on Jan 25, 2021 12:35 Height - 66.00 in Weight - 332 lbs (HIGH) BSA - 2.48 sq.m BMI - 53.59 (HIGH) Temperature - 98.2 F (LOW) Pulse - 93 /min Respiration - 18 /min O2 Sat - 95 % (LOW) Pain - 9 Physical Examination: Constitutional - She appears somewhat weak generally, Eyes - Sclerae nonicteric. Conjunctivae clear, ENMT - No lesions noted in the oral cavity, Hematologic/Lymphatic - No cervical, clavicular, or axillary adenopathy, Respiratory - Lungs sound clear, Cardiovascular - Heart rhythm is regular. There is no murmur, gallop, or rub noted, Abdomen - Distended. Liver and spleen do not appear overtly enlarged. There is no abdominal mass or ascites noted and there is no inguinal adenopathy, Extremities - There is mild swelling of the left leg. Dorsalis pedis pulses are palpable bilaterally, Integumentary - There is an area of rough, hyper-pigmented skin on the dorsum of the right wrist. There are no suspicious skin lesions noted, Neurologic - No focal neurologic deficits noted. Lab/Imaging: CBC shows hemoglobin 11.0 g, white blood cell count 3000, and platelet count 114,000. Comprehensive metabolic profile shows stable renal function with BUN 15 and creatinine 1.3 mg/dL. Bilirubin and liver enzymes are normal, as before. Sed rate is unchanged at 44 mm/h. C-reactive protein is mildly elevated at 9.0 mg/L. Her AFP level is in normal range at 7.8 ng/mL. Problem List: 1. Mild pancytopenia. 2. She has known liver cirrhosis, presumably due to autoimmune hepatitis. She has been on treatment with azathioprine. 3. She has cutaneous lupus for which she has been on treatment with hydroxychloroquine. 4. Degenerative disease of the spine with cervical spinal stenosis. 5. Fibromyalgia. 6. Obesity. 7. She would appear to be at high risk for obstructive sleep apnea. 8. 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 Problems Addressed with this Encounter and Plan: Patient with longstanding, mild pancytopenia. At least some component is almost certainly due to underlying liver cirrhosis/hypersplenism. Some component may be medication related, to hydroxychloroquine and/or azathioprine. The other concern would be the possibility of myelodysplastic syndrome, but that appears to be unlikely. As long as her blood counts remain stable she can be managed expectantly. As such, I will just plan a follow-up visit in 6 months. Signed By: Jerel Marin M.D. <<Signature on File>>
== END 2021-01-25 12:22 | disposition home or self-care (01) ==
LOC: ONCMED 12:23
PROVIDERS: PCP Family Medicine; Visit Provider Internal Medicine Medical Oncology
DX: D61.818 Other pancytopenia (principal); K74.60 Unspecified cirrhosis of liver; D73.1 Hypersplenism; Z79.899 Other long term (current) drug therapy; L93.2 Other local lupus erythematosus
CPT/HCPCS: G0463

== ENCOUNTER 2021-02-10 15:31 | Outpatient (CLI) | payer SELFPAY ==
--- NOTE | 2021-02-10 15:45 | XR_ITS ---
WS: [id number] Chest 2 views, 02/10/2021 Clinical Data: R06.02 - Shortness of breath Comparison: Portable chest, 08/30/2020. Findings: No nodules, masses or effusions are seen. The heart is normal. The pulmonary vascularity is not increased. No pneumonia or pneumothorax is seen. XR/XR chest 2V* [id number] Impression: Negative chest.
== END 2021-02-10 15:32 | disposition home or self-care (01) ==
LOC: RADWPI 15:33
PROVIDERS: PCP Family Medicine; Visit Provider Internal Medicine Rheumatology
DX: R06.02 Shortness of breath (principal)
CPT/HCPCS: 71046

== ENCOUNTER → 2021-03-14 14:48 | Outpatient (BNVA) | payer SELFPAY | PROVIDERS: PCP Family Medicine; Visit Provider Internal Medicine | DX: K74.60 Unspecified cirrhosis of liver (principal); M32.9 Systemic lupus erythematosus, unspecified; R76.8 Other specified abnormal immunological findings in serum; N18.9 Chronic kidney disease, unspecified | CPT/HCPCS: 80048; 81003; 82570; 84156 ==

== ENCOUNTER 2021-04-19 13:31 | Outpatient (CLI) | payer SELFPAY ==
--- NOTE | 2021-04-19 13:41 | USCV_ITS ---
Verónica Pat Age: 60 Gender: F : 1960 Exam Date: 04/19/2021 13:52 Ordering Phys: Terrance Zamarripa MD Technologist: Anitha Phillips Exam Location: [facility] Indication: SOB BP: / HR: 76 Rhythm: Other Technical Quality: Very technically difficult study MEASUREMENTS (Male / Female) Normal Values 2D ECHO LV Diastolic Diameter PLAX 5.0 cm 4.2 - 5.9 / 3.9 - 5.3 cm LV Systolic Diameter PLAX 3.9 cm IVS Diastolic Thickness 0.8 cm 0.6 - 1.0 / 0.6 - 0.9 cm IVS Systolic Thickness 1.2 cm LVPW Diastolic Thickness 0.9 cm 0.6 - 1.0 / 0.6 - 0.9 cm LVPW Systolic Thickness 1.3 cm LVOT Diameter 2.0 cm LV Ejection Fraction 2D Teich 34.9 % LA Diameter 3.5 cm M-MODE LV Diastolic Diameter MM 4.6 cm 4.2 - 5.9 / 3.9 - 5.3 cm LV Systolic Diameter MM 3.3 cm LV Ejection Fraction MM Teich 56.8 % IVS Diastolic Thickness MM 1.1 cm 0.6 - 1.0 / 0.6 - 0.9 cm IVS Systolic Thickness MM 0.9 cm LVPW Diastolic Thickness MM 1.2 cm 0.6 - 1.0 / 0.6 - 0.9 cm LVPW Systolic Thickness MM 1.6 cm RV Diastolic Diameter MM 2.6 cm Aortic Annulus Diameter 3.4 cm LA Ao Ratio MM 1.0 MV E Point Septal Separation 0.8 cm DOPPLER AV Peak Velocity 165.0 cm/s LVOT Peak Velocity 111.0 cm/s AV Area Cont Eq vti 2.0 cm squared AV Area Cont Eq pk 2.0 cm squared MV Area PHT 2.8 cm squared Mitral E to A Ratio 1.3 MV E' Velocity 83.0 cm/s TV Peak E Velocity 94.0 cm/s PV Peak Velocity 90.0 cm/s FINDINGS Left Ventricle This is technically very difficult study because of poor ultrasonic windows. LV systolic function appears to be grossly normal. Can not assess accuarate LV EF. Regional wall motion abnormalities can not be assessed Right Ventricle Grossly normal Right Atrium Not visulaized Left Atrium Not well visualized Mitral Valve Not well visualized. No significant regurgitation Aortic Valve Not visualized. No significant aortic stenosis or regurgitation Tricuspid Valve Not visualized Pulmonic Valve Not visualized Pericardium Grossly normal Aorta Not well visualized CONCLUSIONS This is technically very difficult study because of poor ultrasonic windows. LV systolic function appears to be grossly normal. Can not assess accuarate LV EF. Regional wall motion abnormalities can not be assessed Valves not well visualized No comparison studies are available Jhonathan Mendoza MD (Electronically Signed) Final Date: 24 Apr 2021 15:45 S
== END 2021-04-19 13:32 | disposition home or self-care (01) ==
LOC: US 13:32
PROVIDERS: PCP Family Medicine; Visit Provider Internal Medicine Rheumatology
DX: R06.02 Shortness of breath (principal)
CPT/HCPCS: 93306

== ENCOUNTER → 2021-04-20 14:16 | Outpatient (BNVA) | payer SELFPAY | PROVIDERS: PCP Family Medicine; Visit Provider Internal Medicine Rheumatology | DX: M32.9 Systemic lupus erythematosus, unspecified (principal); R76.8 Other specified abnormal immunological findings in serum; K74.60 Unspecified cirrhosis of liver; E66.01 Morbid (severe) obesity due to excess calories; N18.9 Chronic kidney disease, unspecified; Z79.899 Other long term (current) drug therapy | CPT/HCPCS: 36415; 80076; 81003; 82565; 82570; 84156; 85025; 86140 ==

== ENCOUNTER → 2021-04-26 15:39 | Outpatient (BNVA) | payer SELFPAY | PROVIDERS: PCP Family Medicine; Visit Provider Internal Medicine Rheumatology | DX: R76.8 Other specified abnormal immunological findings in serum (principal); M32.9 Systemic lupus erythematosus, unspecified; D72.818 Other decreased white blood cell count; Z79.899 Other long term (current) drug therapy; M54.31 Sciatica, right side; R06.00 Dyspnea, unspecified; E66.01 Morbid (severe) obesity due to excess calories; Z68.43 Body mass index [BMI] 50.0-59.9, adult; Z20.822 Contact with and (suspected) exposure to COVID-19; Z87.891 Personal history of nicotine dependence | CPT/HCPCS: 99214 ==

== ENCOUNTER → 2021-05-06 16:06 | Outpatient (BNVA) | payer OTHER, SELFPAY | PROVIDERS: PCP Family Medicine; Visit Provider Internal Medicine Rheumatology | DX: R76.8 Other specified abnormal immunological findings in serum (principal); R06.02 Shortness of breath; Z87.891 Personal history of nicotine dependence; Z20.822 Contact with and (suspected) exposure to COVID-19 | CPT/HCPCS: 87635 ==

== ENCOUNTER → 2021-05-10 14:19 | Outpatient (BNVA) | payer SELFPAY | PROVIDERS: PCP Family Medicine; Visit Provider Specialist | DX: G43.711 Chronic migraine without aura, intractable, with status migrainosus (principal); M50.020 Cervical disc disorder with myelopathy, mid-cervical region, unspecified level; K75.4 Autoimmune hepatitis; Z87.891 Personal history of nicotine dependence | CPT/HCPCS: 99215 ==

== ENCOUNTER 2021-05-12 13:57 | Outpatient (CLI) | payer SELFPAY ==
--- NOTE | 2021-05-12 14:20 | PFTS_ITS ---
Date of Study:05/12/21 Date of Dictation: 05/17/21 MECHANICS: Post bronchodilator Forced vital capacity (FVC) is reduced 58% . Post bronchodilator Forced expiratory volume in one second (FEV1) is moderately reduced 54% . FEV1/FVC is reduced. There is no significant response to bronchodilators . FLOW VOLUME LOOP: severe sloping of expiratory limb suggestive of severe airway obstruction . LUNG VOLUMES: Total lung capacity (TLC) is normal . Increased Residual volume (RV) suggestive of mild air trapping. DIFFUSING CAPACITY FOR CARBON MONOXIDE: mildly reduced 74% . INTERPRETATION: The pulmonary function tests are consistent with moderate obstructive ventilatory defect with mild air trapping on lung volumes and mild gas transfer defect suggesting underlying possible emphysema. Clinical correlation recommended. [facility]
== END 2021-05-12 13:58 | disposition home or self-care (01) ==
LOC: RT 14:00
PROVIDERS: PCP Family Medicine; Visit Provider Internal Medicine Rheumatology
DX: R76.8 Other specified abnormal immunological findings in serum (principal); R06.02 Shortness of breath; Z87.891 Personal history of nicotine dependence
CPT/HCPCS: 94060; 94726; 94729; J7611

== ENCOUNTER 2021-08-03 12:46 | Outpatient (CLI) | payer MEDICAID, SELFPAY ==
[2021-08-03 14:05] LABS: Basophils % 1.2 %; Eosinophils # 0.1 10^3/uL (0.0-0.8); Eosinophils % 3.2 %; Hematocrit 33.6 % (37.0-47.0); Hemoglobin 11.1 g/dL (11.5-15.3); Lymphocytes # 0.5 10^3/uL (0.8-4.8); Mean Corpuscular Hemoglobin 31.5 pg (28.0-34.0); Mean Corpuscular Volume 95.5 fl (81-99); Mean Platelet Volume 12.1 fL (7.4-10.4); Monocytes # 0.3 10^3/uL (0.2-0.9); Monocytes % 12.5 %; Neutrophils # 1.58 10^3/uL (1.8-7.7); Neutrophils % 63.7 %; Nucleated Red Blood Cells % 0 %; Platelet Count 118 10^3/cmm (130-400); Red Blood Count 3.52 10^6/uL (4.1-5.3); Red Cell Distribution Width 13.5 % (12.1-15.1); White Blood Count 2.5 10^3/uL (4.0-10.0)
[2021-08-03 14:47] LABS: Alanine Aminotransferase 26 U/L (0-33); Albumin Level 4.1 g/dL (3.5-5.2); Alkaline Phosphatase 73 IU/L (35-105); Anion Gap 16.9 (5-19); Aspartate Amino Transferase 32 U/L (0-32); Blood Urea Nitrogen 9 mg/dL (8-23); C Reactive Protein 7.8 mg/L (0.0-4.9); Calcium 8.8 mg/dL (8.5-10.5); Carbon Dioxide 26 mmol/L (22-29); Chloride 90 mmol/L (98-107); Ferritin 119 ng/mL (15-150); Globulin 3.1 g/dL (1.3-4.6); Glomerular Filtration Rate 45.7 mL/min (90-130); Glucose 93 mg/dL (65-115); Iron 148 ug/dL (37-145); Lactate Dehydrogenase 266 U/L (135-214); Osmolality Calculated 264 mOsm/kg (285-295); Percent Saturation 42.6 % (20-50); Potassium 4.9 mmol/L (3.5-5.1); Sodium 128 mmol/L (136-145); Total Bilirubin 0.6 mg/dL (0.15-1.2); Total Iron Binding Capacity 347 mcg/dl; Total Protein 7.2 g/dL (6.6-8.7); Unsaturated Iron Binding 199 ug/dL (112-347)
[2021-08-03 18:01] LABS: Tumor Marker Alpha Fetoprotein 6.8 ng/mL (0-8.3)
[2021-08-03 18:09] LABS: Erythrocyte Sedimentation Rate 47 mm/hr (0-15)
== END 2021-08-03 12:47 | disposition home or self-care (01) ==
LOC: ONCMED 12:53
PROVIDERS: Absent Provider Internal Medicine Rheumatology; PCP Family Medicine; Visit Provider Internal Medicine Medical Oncology
DX: D47.3 Essential (hemorrhagic) thrombocythemia (principal); Z79.899 Other long term (current) drug therapy
CPT/HCPCS: 36415; 80053; 82105; 82728; 83540; 83550; 83615; 85025; 85651; 86140

== ENCOUNTER 2021-08-18 14:44 | Outpatient (CLI) | payer MEDICAID, SELFPAY ==
--- NOTE | 2021-08-22 07:03 | ONC FU_ITS ---
Dr. Marin Patient Follow-Up Note Patient: Verónica Pat Unit #: [id number]: 1960 Dicatated By: Jerel Marin M.D.Date of Visit:Aug 18, 2021 Onc Med Follow-up/Prog Note Chief Complaint: Pancytopenia. History of Present Illness: This is a 60 year-old woman with mild pancytopenia. 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 She has additional history of liver cirrhosis, presumably due to autoimmune hepatitis, apparently diagnosed by liver biopsy in 2008. She had been on treatment with azathioprine, but that was stopped due multiple blood counts showing mild pancytopenia. Her CBC from August 30, 2020 showed hemoglobin 11.6 g with hematocrit 35.6%. The red cell indices were borderline high. The white blood cell count was 3600 with the differential showing 74% neutrophils, 12% lymphocytes, 10% monocytes, and 1% eosinophils. I had seen her initially on 10/25/2020. In reviewing her records in [facility] she had a total of 6 blood counts done here during 2019, all showing mild anemia with hemoglobin levels in the range of 11 g, mild leukopenia ranging from 4662-1702, and mild thrombocytopenia ranging from 88,002 122,000. There had been multiple previous CBCs dating back to 2013, and as far back as 2016 all of these had shown similar findings with just one exception, which I suspected to have been an inaccurate result. A CT abdomen/pelvis from 07/12/2019 showed mildly irregular liver margins suggesting cirrhosis. Also noted was chronic splenomegaly. There was no acute process noted at that time. Her laboratory studies from 10/25/2020 included CBC showing hemoglobin 11.5 g, white blood cell count 5600, and platelet count 128,000. The red cell indices were borderline high. Sed rate was mildly elevated at 44 mm/h. LDH was mildly elevated at 337 U/L but with normal haptoglobin 148.0 mg/L. Comprehensive metabolic profile showed elevated BUN and creatinine at 14 and 1.4 mg/dL. The bilirubin and liver enzymes were normal. The serum iron studies showed normal transferrin saturation at 47% with ferritin normal at 145 ng/mL. B12 is normal at 414 pg/mL and folate was normal at 7.5 ng/mL. Overall, the findings appeared most consistent with pancytopenia due to hypersplenism, but with the hydroxychloroquine and/or azathioprine also being potential contributing factors. In the absence of any evidence of a progressive process, I opted to follow her expectantly. She is seen for a scheduled visit. Her main complaint is that she has had a tendency to fall. She says she has fallen at least 4 times within the past year, and she does not really know why. She thinks it may be that her sense of direction is off. She also complains that either or both legs go numb from the waist down. It happens periodically, though pretty much on a daily basis. She says her energy is not good. She is trying to work, but she does have very limited activity tolerance, and she has to sit down and rest due to both back pain and shortness of breath. Her ECOG score is 1. She says she eats only once a day, but she has been unable to lose weight. She does not have fever or night sweats. She has some allergy related sinus symptoms. She complains of dry mouth and throat. She has nonproductive cough. She is short of breath with activity. She does not complain of chest pain. She sometimes has nausea and lately she has been having some heartburn. Bowel and bladder function remain adequate. She has not been aware of any blood in the stool. She she has pain in her neck and left shoulder, and she also complains that her left arm hurts a lot. Her knees hurt constantly. She has headaches and she also complains of dizziness. She has anxiety, but no depression. Medications: Benicar 1 (20 mg) Tablet Oral daily, Calcium + D3 1 (600-800 mg - Units) Tablet Oral daily, Cyclobenzaprine HCl 1 Tablet (of 10 mg) Oral at bedtime, Escitalopram Oxalate 1 Tablet (of 20 mg) Oral daily, Gabapentin (600 mg) Capsule Oral Take as Directed, Hydroxychloroquine Sulfate 1 Tablet (of 200 mg) Oral b.i.d., K-Tab 1 (10 meq) Tablet, controlled release Oral daily, Lasix 1 (40 mg) Tablet Oral every am, Propranolol HCl 1 Tablet (of 10 mg) Oral b.i.d. Allergies: Acyclovir, Meperidine HCl, and Penicillins. Vital Signs: Performed on Aug 18, 2021 16:16 Height - 66.00 in Weight - 323.2 lbs (LOW) BSA - 2.45 sq.m BMI - 52.17 (HIGH) Temperature - 97.5 F (LOW) Pulse - 86 /min Respiration - 18 /min BP - 124/72 mm(hg) O2 Sat - 95 % (LOW) Pain - 5 Fatigue - 8 Physical Examination: Constitutional - She appears somewhat weak generally, Eyes - Sclerae nonicteric. Conjunctivae clear, ENMT - No lesions noted in the oral cavity, Hematologic/Lymphatic - No cervical, clavicular, or axillary adenopathy, Respiratory - Lungs sound clear, Cardiovascular - Heart rhythm is regular. There is no murmur, gallop, or rub noted, Abdomen - Distended. Liver and spleen do not appear overtly enlarged. There is no abdominal mass or ascites noted and there is no inguinal adenopathy, Extremities - Mild edema. Dorsalis pedis pulses are palpable bilaterally, Integumentary - There is a small hyperpigmented lesion on the lower back, Neurologic - No focal neurologic deficits noted. Lab/Imaging: Test performed on Aug 03, 2021 13:45 Ferritin 119 ng/mL Iron 148 mcg/dL LDH (Total) 266 U/L Sodium 128 mmol/L Iron Binding Capacity (TIBC) 347 mcg/dl Potassium 4.9 mmol/L % Iron Saturation 42.6 % Chloride 90 mmol/L CO2 26 mmol/L UIBC 199 mcg/dL Anion Gap 16.9 BUN 9 mg/dL Creatinine 1.2 mg/dL Cr Clearance (Est) 117.0400 mL/min eGFR 45.7 mL/min Glucose 93 mg/dL Osmolality - Calculated 264 mOsm/kg Calcium 8.8 mg/dL Protein, Total 7.2 g/dL Albumin 4.1 g/dL Globulin 3.1 g/dL Bilirubin, Total 0.6 mg/dL ALT (SGPT) 26 U/L AST (SGOT) 32 U/L Alkaline Phosphatase 73 IU/L ESR (Sed Rate) 47 mm/hr WBC 2.5 10 3/uL RBC 3.52 10 6/uL HGB 11.1 g/dL HCT 33.6 % MCV 95.5 fl MCH 31.5 pg MCHC 33.0 g/dL RDW 13.5 % Platelet Count 118 10 3/cmm MPV 12.1 fL Neutrophils 1.58 10 3/uL Lymphocytes 0.5 10 3/uL Monocytes 0.3 10 3/uL Eosinophils 0.1 10 3/uL Basophils 0.0 10 3/uL Neutrophil % 63.7 % Lymphocyte % 19.0 % Monocyte % 12.5 % Eosinophil % 3.2 % Basophils % 1.2 % NRBC % 0 % AFP 6.8 ng/mL Problem List: 1. Mild pancytopenia. 2. She has known liver cirrhosis, presumably due to autoimmune hepatitis. She had been on treatment with azathioprine. 3. She has cutaneous lupus for which she has been on treatment with hydroxychloroquine. 4. Degenerative disease of the spine with cervical spinal stenosis. 5. Fibromyalgia. 6. Obesity. 7. She would appear to be at high risk for obstructive sleep apnea. 8. 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 Problems Addressed with this Encounter and Plan: 1. Patient with longstanding, mild pancytopenia. At least some component is almost certainly due to underlying liver cirrhosis/hypersplenism. Some component may be related to hydroxychloroquine. The other concern is the possibility of myelodysplastic syndrome, but that has seemed less likely. Thus far during follow-up her blood counts have remained stable. As such, she can continue with expectant management. 2. She has been having numbness intermittently in the lower extremities, and she is known to have cervical spinal canal stenosis. Her most recent cervical spine imaging was in January 2020, and I will check on her neurosurgery follow-up. 3. She has obesity she expresses interest in having treatment with semaglutide. I will check on eligibility and coverage, but I think that treatment would best be done through her primary care provider or an combination technician. Signed By: Jerel Marin M.D. <<Signature on File>>
== END 2021-08-18 14:45 | disposition home or self-care (01) ==
LOC: ONCMED 14:47
PROVIDERS: PCP Family Medicine; Visit Provider Internal Medicine Medical Oncology
DX: D61.818 Other pancytopenia (principal); M48.02 Spinal stenosis, cervical region; E66.9 Obesity, unspecified; M79.7 Fibromyalgia; Z79.899 Other long term (current) drug therapy
CPT/HCPCS: 99214

== ENCOUNTER → 2021-09-20 15:33 | Outpatient (BNVA) | payer MEDICAID, SELFPAY | PROVIDERS: PCP Family Medicine; Visit Provider Internal Medicine Rheumatology | DX: M32.9 Systemic lupus erythematosus, unspecified (principal); R76.8 Other specified abnormal immunological findings in serum; D72.818 Other decreased white blood cell count; Z79.899 Other long term (current) drug therapy; M54.41 Lumbago with sciatica, right side; N18.9 Chronic kidney disease, unspecified; R06.00 Dyspnea, unspecified; E66.01 Morbid (severe) obesity due to excess calories; Z68.43 Body mass index [BMI] 50.0-59.9, adult; Z87.891 Personal history of nicotine dependence | CPT/HCPCS: 99214 ==

== ENCOUNTER → 2021-09-22 13:03 | Outpatient (BNVA) | payer MEDICAID, SELFPAY | PROVIDERS: PCP Family Medicine; Visit Provider Internal Medicine Rheumatology | DX: D72.9 Disorder of white blood cells, unspecified (principal); M32.9 Systemic lupus erythematosus, unspecified; Z79.899 Other long term (current) drug therapy | CPT/HCPCS: 85025 ==

== ENCOUNTER → 2021-10-03 14:50 | Outpatient (BNVA) | payer MEDICAID, SELFPAY | PROVIDERS: PCP Family Medicine; Visit Provider Specialist | DX: G43.711 Chronic migraine without aura, intractable, with status migrainosus (principal); M54.81 Occipital neuralgia; M79.7 Fibromyalgia; M50.020 Cervical disc disorder with myelopathy, mid-cervical region, unspecified level; K75.4 Autoimmune hepatitis; Z87.891 Personal history of nicotine dependence | CPT/HCPCS: 20550; 64405; 99214; J1030; J3490 ==

== ENCOUNTER → 2021-11-08 15:09 | Outpatient (BNVA) | payer MEDICAID, SELFPAY | PROVIDERS: PCP Family Medicine; Visit Provider Nurse Practitioner Family | DX: M25.562 Pain in left knee (principal) | CPT/HCPCS: 73562; 80053; 80061; 82306; 84443 ==

== ENCOUNTER 2021-11-18 09:32 | Inpatient (IN) | payer MEDICAID, SELFPAY ==
[2021-11-18] VITALS (7 sets, daily range): BP systolic 113–148; BP diastolic 54–104; PULSE 75–95; RESP 17–22; TEMP 36.6–37.4; O2SAT 89–97; BMI 48.4
--- NOTE | 2021-11-18 10:03 | ED_ITS ---
HPI - SOB/Dyspnea General: Chief Complaint: Shortness of Breath/Dyspnea Stated Complaint: SOB, BOTH KNEE PAINS Time Seen by Provider: 11/18/21 10:02 History of Present Illness: HPI Narrative: 60-year-old female presents emergency room complaining of bilateral knee pain as well as shortness of breath. Both of these issues are chronic. She has previously been seen in July for shortness of breath although she relates it has been worsening. She not had any swelling or pain in the legs is not on any hormone replacement of any kind. She had previously had an x-ray there is a question of some subluxation of the patella on the left leg and a question of a remote fracture on the patella there is a recommendation for CT which has not been done yet. She has no other new trauma to her knees. Although the right knee has starting to become more uncomfortable. She is not been taking any anti-inflammatories she has been taking tramadol according to her medicine list. No chest pain. She had a previous work in July with pulmonology for shortness of breath. MD elicited complaint: shortness of breath and cough Pertinent past history: asthma Onset (ago): month(s) Context: occurred during exertion Timing: intermittent Severity: moderate Exacerbating factors: exertion Relieving factors: rest Associated symptoms: Reports orthopnea; Deny abdominal pain, chest congestion, chest pain, cough, diaphoresis, dizziness, extremity pain, fever(s), hemoptysis, lightheadedness, myalgias, nausea, palpitations, paresthesias, polydipsia, polyuria, rash, sense of impending doom, syncope or vomiting Treatment prior to arrival: none Review of Systems Const: Denies: fever(s) or diaphoresis ENMT: Denies: throat pain, ear or mastoid pain, nasal discharge or nasal congestion Card: Reports: orthopnea; Denies: chest pain, palpitations, lightheadedness or syncope Resp: Denies: hemoptysis or chest congestion GI: Denies: abdominal pain, nausea or vomiting : Denies: flank pain, difficulty voiding, dysuria, urinary frequency or urinary urgency Musc: Denies: extremity pain Skin/Breast: Denies: rash or pruritus Neuro: Denies: dizziness Endo: Denies: polyuria or polydipsia PFS ED PFSH: Medical History Acute kidney injury superimposed on CKD Anxiety Autoimmune hepatitis Back pain with right-sided sciatica Cervical disc disorder with myelopathy of mid-cervical region Cirrhosis of liver CKD (chronic kidney disease) Cytopenia Exertional dyspnea Fibromyalgia High risk medication use Hypertension Immunization counseling Left knee pain Leukopenia Positive SU (antinuclear antibody) Sebaceous cyst Shortness of breath SLE (systemic lupus erythematosus) Spondylolisthesis, cervical region 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 Occipital craniotomy History of surgery on arm LEFT Family History Other CAD (coronary artery disease) Cancer Hypertension Stroke Denies family history of Rheumatoid arthritis Diabetes Lupus Social History Quit status (tobacco): has quit using tobacco Year quit tobacco: 1993 Former quit date comment: Hx of 1 PPD x 15 Years Second hand smoke exposure: No Smoking risk assessment/counseling performed?: No Alcohol intake: never Counseling given: No Counseling given: No Lives independently: Yes Household members: none Marital status: Current occupational status: unemployed History of recent travel: No Current gender identity: Female Physical Exam Const: GENERAL APPEARANCE: cooperative ORIENTATION/CONSCIOUSNESS: Yes awake, Yes oriented to person, Yes oriented to place and Yes oriented to time HENMT: COMMON NORMALS: normocephalic, atraumatic and hearing grossly normal bilaterally HEAD & SCALP: normocephalic and atraumatic Resp: AUSCULTATION: wheezes and diminished lung sounds Cardio: COMMON NORMALS: regular rate, regular rhythm and No murmurs present (Cardio) RATE: regular rate RHYTHM: regular rhythm GI: COMMON NORMALS: Soft to palpation and No hepatosplenomegaly present AUSCULTATION: Yes normoactive bowel sounds PALPATION: Yes Soft to palpation, No Tenderness to palpation present (GI), No Guarding due to palpation present (GI) and Yes No hepatosplenomegaly present Extremity: COMMON NORMALS: normal to inspection, capillary refill normal, no clubbing, cyanosis or edema, no calf tenderness and no pedal edema OTHER: No joint effusion of the knees. No obvious deformities. Neuro: SENSORIUM/ORIENTATION: Yes oriented to person, Yes oriented to place and Yes oriented to time Skin: COMMON NORMALS: no rashes or lesions noted GENERAL SKIN EXAM: no rashes or lesions noted Course Vital Signs: Vital signs: Vital Signs Temperature 98.6 F 11/20/21 12:00 Pulse Rate 71 11/20/21 12:00 Respiratory Rate 19 H 11/20/21 12:00 Blood Pressure 147/70 11/20/21 12:00 Pulse Oximetry 98 11/20/21 12:00 MDM - SOB/Dyspnea MDM Narrative: Medical decision making narrative: Patient initially presented with an O2 sat of 89% on room air did improve. She was given supplemental oxygen. She does have an acute kidney injury with hyperkalemia. Discussed with hospitalist will admit orders written. Patient will need further evaluation of shortness of breath also will need continued oxygen support, and further cardiac evaluation as well as correction of electrolytes and kidney function. Lab Data: Labs: Lab Results 11/18/21 11/18/21 11/18/21 10:52 10:52 11:19 WBC 5.4 10^3/uL 10^3/ uL (4.0-10.0) RBC 2.73 10^6/uL L 10 ^6/uL (4.1-5.3) Hgb 9.0 g/dL L g/dL (11.5-15.3) Hct 26.6 % L % (37.0-47.0) MCV 97.4 fl fl (81-99) MCH 33.0 pg pg (28.0-34.0) MCHC 33.8 g/dL g/dL (30.0-36.0) RDW 14.4 % % (12.1-15.1) Plt Count 130 10^3/cmm 10^3 /cmm (130-400) MPV 12.1 fL H fL (7.4-10.4) Neut % (Auto) 81.1 % % Lymph % (Auto) 7.2 % % [place] % (Auto) 10.0 % % Eos % (Auto) 0.9 % % Baso % (Auto) 0.6 % % Neut # (Auto) 4.37 10^3/uL 10^3 /uL (1.8-7.7) Lymph # (Auto) 0.4 10^3/uL L 10^ 3/uL (0.8-4.8) [place] # (Auto) 0.5 10^3/uL 10^3/ uL (0.2-0.9) Eos # (Auto) 0.1 10^3/uL 10^3/ uL (0.0-0.8) Baso # (Auto) 0.0 10^3/uL 10^3/ uL (0.0-0.1) Nucleated RBC % (a uto) 0 % % Nucleated RBCs # 0.0 /100WBC /100W BC D-Dimer 0.90 ug/mIFEU H u g/mIFEU (0-0.59) Sodium 128 mmol/L L mmol /L (136-145) Potassium 5.9 mmol/L H mmol /L (3.5-5.1) Chloride 94 mmol/L L mmol/ L (98-107) Carbon Dioxide 22 mmol/L mmol/L (22-29) Anion Gap 17.9 (5-19) BUN 29 mg/dL H mg/dL (8-23) Creatinine 1.9 mg/dL H mg/dL (0.5-0.9) GFR Calculation 26.9 mL/min L mL/ min (90-130) Glucose 115 mg/dL mg/dL (65-115) Calculated Osmolal ity 273 mOsm/kg L mOs m/kg (285-295) Calcium 8.4 mg/dL L mg/dL (8.5-10.5) Coronavirus 229E ( PCR) SARS-CoV-2 (PCR) 11/18/21 12:26 WBC RBC Hgb Hct MCV MCH MCHC RDW Plt Count MPV Neut % (Auto) Lymph % (Auto) [place] % (Auto) Eos % (Auto) Baso % (Auto) Neut # (Auto) Lymph # (Auto) [place] # (Auto) Eos # (Auto) Baso # (Auto) Nucleated RBC % (a uto) Nucleated RBCs # D-Dimer Sodium Potassium Chloride Carbon Dioxide Anion Gap BUN Creatinine GFR Calculation Glucose Calculated Osmolal ity Calcium Coronavirus 229E ( PCR) Not detected (NOT DETECT) SARS-CoV-2 (PCR) Not detected (NOT DETECT) Discharge Plan Discharge Patient Disposition: Admitted As Inpatient Admit Provider: Lupillo Mccarthy Clinical Impression: Hypoxia, ALEX (acute kidney injury), Acute hyperkalemia Condition: Stable Coding Level of Care Code ED City Maintenance Manager for Chg Fwd Exam Detailed
--- NOTE | 2021-11-18 10:20 | XR_ITS ---
WS: [id number] PORTABLE CHEST HISTORY: dyspnea/cough COMPARISON: 02/10/2021 Mild interstitial thickening. More focal increasing opacification in the RIGHT lower lung field. No p leural effusion or pneumothorax. Cardiac size: Mildly enlarged cardiac silhouette. Mediastinum/Aorta: Normal mediastinum. No osseous abnormality seen. XR/XR chest 1V portable [id number] IMPRESSION: 1. Interval development of mild pulmonary edema and increasing opacification i n the RIGHT lower lobe. Increased opacification may be focal edema or pneumonit is. 2. No dense consolidation or pneumonia.
--- NOTE | 2021-11-18 10:20 | ECG_ITS ---
[facility] Test Date: 2021-11-18 Pat Name: Verónica Pat Department: Room: 261 Gender: Female Nicker: : 1960 Requested By: Neftaly Seals Order Number: [id number] Margarito MD: Linda Weber M.D. Measurements Intervals [place] Rate: 74 P: 37 UT: 144 QRS: 65 QRSD: 81 T: 69 QT: 377 QTc: 420 Interpretive Statements SINUS RHYTHM WITH SINUS ARRHYTHMIA LOW QRS VOLTAGE IN PRECORDIAL LEADS [QRS DEFLECTION < 1.0 mV IN CHEST LEADS] Compared to ECG 08/30/2020 02:54:43 Short UT interval no longer present Electronically Signed On 11-19-2021 17:10:02 G[employer]EVANCE AND APPEALS SPECIALIST by Linda Weber M.D. [id number]
[2021-11-18 11:11] LABS: Basophils % 0.6 %; Eosinophils # 0.1 10^3/uL (0.0-0.8); Eosinophils % 0.9 %; Hematocrit 26.6 % (37.0-47.0); Lymphocytes # 0.4 10^3/uL (0.8-4.8); Lymphocytes % 7.2 %; Mean Corpuscular HGB Conc 33.8 g/dL (30.0-36.0); Mean Corpuscular Volume 97.4 fl (81-99); Mean Platelet Volume 12.1 fL (7.4-10.4); Monocytes # 0.5 10^3/uL (0.2-0.9); Neutrophils # 4.37 10^3/uL (1.8-7.7); Neutrophils % 81.1 %; Nucleated Red Blood Cells % 0 %; Platelet Count 130 10^3/cmm (130-400); Red Blood Count 2.73 10^6/uL (4.1-5.3); Red Cell Distribution Width 14.4 % (12.1-15.1); White Blood Count 5.4 10^3/uL (4.0-10.0)
[2021-11-18 11:26] LABS: Anion Gap 17.9 (5-19); Blood Urea Nitrogen 29 mg/dL (8-23); Calcium 8.4 mg/dL (8.5-10.5); Carbon Dioxide 22 mmol/L (22-29); Chloride 94 mmol/L (98-107); Glomerular Filtration Rate 26.9 mL/min (90-130); Glucose 115 mg/dL (65-115); Osmolality Calculated 273 mOsm/kg (285-295); Potassium 5.9 mmol/L (3.5-5.1); Sodium 128 mmol/L (136-145)
--- NOTE | 2021-11-18 13:58 | PM.HP ---
Providers/Chief Complaint Admitting Physician: Lupillo Mccarthy Primary Care Provider: Stephanie Tipton MD Chief Complaint: SOB, BOTH KNEE PAINS History of Present Illness Very pleasant 60-year-old lady with history of morbid obesity, SLE, liver cirrhosis, question of possible AIH, although unconfirmed on liver biopsy, following with GI specialist, migraine headaches, following with neurology, current kidney disease, although was not aware of this, other chronic medical problems, recently also staying with multiple different relatives ever since selling her home, came to ER due to progressive dyspnea on exertion, limitation of exertion including due to knee pain, but also getting extremely tired. She states that she had had some cashew chicken earlier this week and could not taste it, although later states that she was joking. She does state she has been coughing. She has been having some loose stools, although this is not necessarily new. Denies nausea or vomiting. Denies orthopnea. Was referred recently for left knee x-ray, with finding suspicious for lateral dislocation or subluxation of patella, bone fragment along lateral aspect of the patella could represent an age-indeterminate fracture. She also was recently treated for sebaceous cyst with Bactrim. On presentation she is noted hyponatremia, sodium 128, hyperkalemia, potassium 5.9, with acute kidney injury on chronic kidney disease, BUN 29, creatinine 1.9. Chest x-ray with finding of interval development of mild pulmonary edema and increasing opacification in the right lower lobe increased opacification may be focal edema or pneumonitis. No dense consolidation or pneumonia. She is chronically very hard of hearing, right ear is a little bit better. Review of Systems Const: Reports: body aches and fatigue; Denies: fever(s), chills or malaise Eyes: Denies: change in vision or eye redness ENMT: Denies: throat pain, oral sores or ear or mastoid pain Card: Reports: edema and dyspnea on exertion; Denies: chest pain or pre-syncope Resp: Reports: non-productive cough; Denies: dyspnea, productive cough, change in phlegm color or hemoptysis GI: Denies: abdominal pain, nausea, vomiting, constipation, hematochezia or melena : Denies: flank pain, urinary frequency or hematuria Musc: Reports: other (BL knee pain, R>L); Denies: back pain, joint swelling or joint redness Skin/Breast: Denies: rash, sores or new lesions Neuro: Denies: headache(s), numbness in extremities, weakness in extremities, dizziness, confusion or seizure-like activity Endo: Denies: polyuria or polydipsia Vidal/Lymph: Denies: easy bleeding or purpura All/Imm: Denies: urticaria, throat swelling or tongue swelling Medications/Allergies Home Medications Medication Instructions Recorded Confirmed Last Taken Type Ca 600 mg-D3 20 mcg-mag oxide 50 1 tab PO BID tab 12/25/19 11/18/21 11/17/21 History li-Bk-uvizrc-manganese-boron tablet propranolol 10 mg tablet 20 mg PO TID 12/25/19 11/18/21 11/17/21 History clobetasol 0.05 % topical ointment 1 applic TOPICAL BID 14 Days #60 g 07/25/21 11/18/21 Unknown Rx albuterol sulfate 90 mcg/actuation 2 puff INHALATION 6XD PRN 30 Days 07/28/21 11/18/21 Unknown Rx aerosol inhaler #8.5 g escitalopram oxalate 20 mg tablet See Rx Instructions .ROUTE 09/13/21 11/18/21 11/17/21 Rx .COMPLEX #90 tab olmesartan 20 mg tablet See Rx Instructions .ROUTE 09/13/21 11/18/21 11/17/21 Rx .COMPLEX #90 tab gabapentin 300 mg capsule See Rx Instructions .ROUTE 09/22/21 11/18/21 11/17/21 Rx .COMPLEX #120 cap furosemide 20 mg tablet 20 mg PO DAILY 10/03/21 11/18/21 Unknown History cyclobenzaprine 10 mg tablet See Rx Instructions .ROUTE 11/04/21 11/18/21 Unknown Rx .COMPLEX #60 tab diclofenac sodium 1 % topical gel 4 g TOPICAL QID #100 g 11/08/21 11/18/21 Unknown Rx sulfamethoxazole 800 1 tab PO BID 10 Days #20 tab 11/08/21 11/18/21 11/17/21 Rx mg-trimethoprim 160 mg tablet tramadol 50 mg tablet 50 mg PO TID PRN #20 tab 11/11/21 11/18/21 Unknown Rx Allergies Allergy/AdvReac Type Severity Reaction Status Date / Time acyclovir Allergy ALGY-Rash Verified 11/18/21 09:46 meperidine [From Demerol] Allergy Unknown Verified 11/18/21 09:46 Penicillins Allergy ALGY-Rash Verified 11/18/21 09:46 PFSH Acute PFSH: Medical History Anxiety Autoimmune hepatitis Back pain with right-sided sciatica Cervical disc disorder with myelopathy of mid-cervical region Cirrhosis of liver CKD (chronic kidney disease) Cytopenia Exertional dyspnea Fibromyalgia High risk medication use Hypertension Immunization counseling Leukopenia Positive SU (antinuclear antibody) Shortness of breath SLE (systemic lupus erythematosus) Spondylolisthesis, cervical region 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 Occipital craniotomy History of surgery on arm LEFT Family History Other CAD (coronary artery disease) Cancer Hypertension Stroke Denies family history of Rheumatoid arthritis Diabetes Lupus Social History Smoking and tobacco status: never smoked Quit status (tobacco): has quit using tobacco Year quit tobacco: 1993 Former quit date comment: Hx of 1 PPD x 15 Years Second hand smoke exposure: No Smoking risk assessment/counseling performed?: No Alcohol intake: never Counseling given: No Counseling given: No Lives independently: Yes Household members: none Marital status: Current occupational status: unemployed History of recent travel: No Current gender identity: Female Vitals/I&O/Wt Last Vital Signs Temp 99.4 F 11/18/21 09:47 Pulse 87 11/18/21 09:47 Resp 18 11/18/21 09:47 BP 114/54 11/18/21 09:47 Pulse Ox 89 L 11/18/21 09:47 Weight last 48 hrs Weight 136.078 kg Physical Exam Const: COMMON NORMALS: no acute distress and patient oriented x3 NUTRITIONAL APPEARANCE: obese morbidly obese HENMT: COMMON NORMALS: oropharynx normal Neck/C-Spine: COMMON NORMALS: no JVD Resp: COMMON NORMALS: normal respiratory effort and clear to auscultation bilaterally AUSCULTATION: clear to auscultation bilaterally Cardio: COMMON NORMALS: no JVD, regular rhythm, S1 normal heart sound present, S2 normal heart sound present and No murmurs present (Cardio) RHYTHM: regular rhythm HEART SOUNDS: S1 normal heart sound present and S2 normal heart sound present GI: COMMON NORMALS: Normal to inspection, nondistended, normoactive bowel sounds present, Soft to palpation and non-tender PALPATION: Yes Soft to palpation Extremity: COMMON NORMALS: no joint enlargement GENERAL: Yes edema (trace) RIGHT LOWER EXTREMITY: Yes knee joint (difficult to appreciate swelling, no redness or warmth, ) Right knee: Yes ROM (no pain on passive ROM, reports some pain on full extension) LEFT LOWER EXTREMITY: Yes knee joint (difficult to appreciate swelling, no redness or warmth) Neuro: COMMON NORMALS: patient oriented x3 and moves all extremities Skin: COMMON NORMALS: no rashes or lesions noted GENERAL SKIN EXAM: no rashes or lesions noted Data : 11/18/21 10:52 11/18/21 10:52 A&P Assessment and plan (1) Hypoxia: Does not normally require supplemental oxygen, new hypoxia noted on presentation, saturating 89% on room air. This may explain her significant difficulties with exertional dyspnea, feeling severely fatigued with exertion. She has been having some cough recently ongoing, we have requested for COVID-19, PCR currently, back is negative. There is noted mild pulmonary edema, also right lower lobe possible pneumonitis, no dense consolidation to overtly suggest pneumonia. She has been taking Lasix, although currently with acute kidney injury, possibly with lack of response to Lasix. Will reassess renal function. Volume status. Based on these resume Lasix, possibly at higher dose. Additionally with morbid obesity, discussed with her consideration of sleep apnea. She states she has never had a sleep study. Monitor oxygenation, may need oxygen at discharge. She is awake and alert. Given right lower lobe opacification monitor for any signs of aspiration as well. D-dimer minimally abnormal, otherwise no findings overtly suggestive of PE. Will request VQ scan. Denies chest pain or pressure. No hemoptysis. No unilateral edema. Currently suspicion for PE is rather low, will start with VTE prophylaxis. Monitor symptoms. Follows with pulmonology. On PFT nonspecific ventilatory limitation. Likely secondary combination of obstructive and restrictive ventilatory defects. Believed to also combination with congestive heart failure with preserved EF. Status: Acute (2) Exertional dyspnea: As above. Status: Acute (3) Acute kidney injury superimposed on CKD: Completed course of Bactrim. Also takes diclofenac at home. Also on Lasix, although states recently has been having leg swelling. Discussed with her to avoid NSAIDs. Would discontinue diclofenac. Would also avoid Bactrim. Will hold olmesartan for now. Follow-up renal function. Status: Acute (4) Hyperkalemia: Potassium 5.9. Recently completed course of Bactrim. Also on olmesartan. History of CKD. Hold olmesartan. Low potassium diet. Recheck potassium level. Received Kayexalate. Calcium gluconate. Status: Acute (5) Left knee pain: Left knee x-ray, with finding suspicious for lateral dislocation or subluxation of patella, bone fragment along lateral aspect of the patella could represent an age-indeterminate fracture. Given difficulties with ambulation will assess with CT. Status: Acute Qualifiers: Chronicity: unspecified Qualified Code(s): M25.562 - Pain in left knee (6) Sebaceous cyst: Resolving furuncle on skin of mid lower thoracic back. No surrounding erythema. No mass or fluctuance. Status: Acute Additional A&P Information Morbid obesity: Discussed with her would benefit from weight loss. She states has been trying, has been trying to increase her physical activity previously by walking around in circles when had the possibility living at one of her relatives places where there was room. Recently had not had a chance. Discussed with her importance of diet and exercise, discussed consideration of seeking assistance from pharmacotherapy with her primary provider to assist in weight loss. If all else fails, bariatric surgery may also be considered. SLE: Follows with Rheum Liver cirrhosis: Continue lactulose Esophageal varices: Propranolol Chronic migraines CKD Cytopenias: Follows with hematology Attestations Medical Necessity Statement*: Admission of 40 minutes is anticipated for assessment management of new hypoxia, multifactorial shortness of breath although no hypoxia at baseline, as well as underlying CHF with preserved ejection fraction, also with currently acute kidney injury on chronic kidney disease. Coding Level of Care Code Acute Hotel Staff Member for [employer] Diagnoses Hypoxia R09.02 Exertional dyspnea R06.00 Acute kidney injury superimposed on CKD N17.9; N18.9 Hyperkalemia E87.5 Left knee pain M25.562 Chronicity: unspecified Sebaceous cyst L72.3
[2021-11-18 14:27] LABS: Adenovirus Not Detected (NOT DETECT); Chlamydia Pneumoniae Not Detected (NOT DETECT); Coronavirus 229E,HKU1,NL63,OC4 Not Detected (NOT DETECT); Human Metapneumovirus Not Detected (NOT DETECT); Human Rhinovirus/Enterovirus Not Detected (NOT DETECT); Influenza A Not Detected (NOT DETECT); Influenza A H1 Not Detected (NOT DETECT); Influenza A H1-2009 Not Detected (NOT DETECT); Influenza A H3 Not Detected (NOT DETECT); Influenza B Not Detected (NOT DETECT); Mycoplasma Pneumoniae Not Detected (NOT DETECT); Parainfluenza Virus Type 1 Not Detected (NOT DETECT); Parainfluenza Virus Type 2 Not Detected (NOT DETECT); Parainfluenza Virus Type 3 Not Detected (NOT DETECT); Parainfluenza Virus Type 4 Not Detected (NOT DETECT); Respiratory Syncytial Virus A Not Detected (NOT DETECT); Respiratory Syncytial Virus B Not Detected (NOT DETECT); SARS-COV-2 Not Detected (NOT DETECT)
--- NOTE | 2021-11-18 14:47 | NMR_ITS ---
PROCEDURE INFORMATION: Exam: [facility] Lung Ventilation and Perfusion Imaging Exam date and time: 11/18/2021 2:47 PM Age: 60 years old Clinical indication: Abnormal findings; Abnormal diagnostic tests; Elevated d-dimer; Dyspnea; Additional info: Hypoxia, abnormal ddimer TECHNIQUE: Imaging protocol: Nuclear pulmonary ventilation with aerosol or gas was performed followed by perfusion. Views: Ventilation acquired with multiple projections. Perfusion acquired with multiple projections. Total images: 2 Radiopharmaceutical: 5.5 mCi Tc-99m MAA (Macroaggregated Albumin), IV. 33 mCi Tc-99m DTPA (DTPA Aerosol), Inhalation. COMPARISON: CR XR chest 1V portable [id number] 11/18/2021 10:25 AM FINDINGS: Ventilation: Normal. No ventilation defects. Perfusion: Normal. No perfusion defects. HI/HI pul vent and perfus* [id number] IMPRESSION: Normal perfusion. No evidence of pulmonary embolism.
--- NOTE | 2021-11-18 14:48 | CTR_ITS ---
PROCEDURE INFORMATION: Exam: CT Left Lower Extremity Without Contrast, Knee Exam date and time: 11/18/2021 2:48 PM Age: 60 years old Clinical indication: Abnormal findings; Abnormal imaging study; 11/08/21 knee; Additional info: Possible patella displacement/fracture on XR TECHNIQUE: Imaging protocol: CT of the Left lower extremity without contrast was performed. Exam focused on the knee. Total images: 522 Radiation optimization: All CT scans at this facility use at least one of these dose optimization techniques: automated exposure control; mA and/or kV adjustment per patient size (includes targeted exams where dose is matched to clinical indication); or iterative reconstruction. COMPARISON: CR XR knee LT 3V* [id number] 11/08/2021 3:22 PM RADIATION DOSE METRICS: Total DLP (mGy-cm): 669.86 FINDINGS: Bones/joints: Small joint effusion. No visible acute osseous abnormality. Advanced patellofemoral degenerative disease. Moderately advanced secondary osteoarthritis/degenerative joint disease of the knee with medial joint space height loss, hypertrophic spurring, and eburnation. Tibia compression plate and screw fixation device which appears stable. No definitive evidence of lateral subluxation of patella or angulation with prominent patellar lateral hypertrophic spur. Motion artifact. Soft tissues: Obesity. Lemus's cyst measuring 5.4 cm x 2.5 [address]/CT knee LT wo con* [id number] IMPRESSION: 1. No visible acute osseous abnormality. 2. Small joint effusion. 3. Lemus's cyst. 4. Degenerative joint disease as detailed in text.
--- NOTE | 2021-11-18 15:28 | PC.NURSE ---
Patient to CT at tis time.
[2021-11-18] MEDS: lactulose oral liq 20 gm/30 mL UDC PO ×2 (16:02→22:10)
[2021-11-18] MEDS: enoxaparin 40 mg/0.4 mL Syringe SUBCUT (16:02)
[2021-11-18] MEDS: sodium polystyrene sulfonate 15 gm/60 mL Btl 30 GM PO (16:02)
[2021-11-18] MEDS: gabapentin 300 mg Capsule PO (17:27)
--- NOTE | 2021-11-18 19:07 | PC.NURSE ---
Report to Cole MCKINNEY at this time.
[2021-11-18] MEDS: cyclobenzaprine 10 mg Tablet 5 MG PO (22:11)
[2021-11-18] MEDS: propranolol 20 mg Tablet PO (22:11)
[2021-11-18] MEDS: TRAMadol 50 mg Tablet PO (22:15)
[2021-11-19] VITALS (7 sets, daily range): BP systolic 101–148; BP diastolic 60–81; PULSE 73–90; RESP 16–19; TEMP 36.6–37.7; O2SAT 93–100
[2021-11-19 06:05] LABS: Basophils % 0.2 %; Eosinophils % 0.6 %; Hemoglobin 8.2 g/dL (11.5-15.3); Lymphocytes # 0.4 10^3/uL (0.8-4.8); Mean Corpuscular HGB Conc 32.8 g/dL (30.0-36.0); Mean Corpuscular Hemoglobin 32.9 pg (28.0-34.0); Mean Corpuscular Volume 100.4 fl (81-99); Mean Platelet Volume 12.2 fL (7.4-10.4); Monocytes # 0.5 10^3/uL (0.2-0.9); Monocytes % 10.2 %; Neutrophils # 3.73 10^3/uL (1.8-7.7); Neutrophils % 79.6 %; Nucleated Red Blood Cells % 0 %; Platelet Count 100 10^3/cmm (130-400); Red Blood Count 2.49 10^6/uL (4.1-5.3); Red Cell Distribution Width 14.3 % (12.1-15.1); White Blood Count 4.7 10^3/uL (4.0-10.0)
[2021-11-19 06:20] LABS: Alanine Aminotransferase 15 U/L (0-33); Albumin Level 3.7 g/dL (3.5-5.2); Alkaline Phosphatase 59 IU/L (35-105); Aspartate Amino Transferase 17 U/L (0-32); Blood Urea Nitrogen 20 mg/dL (8-23); Carbon Dioxide 23 mmol/L (22-29); Chloride 96 mmol/L (98-107); Globulin 2.8 g/dL (1.3-4.6); Glomerular Filtration Rate 32.8 mL/min (90-130); Glucose 114 mg/dL (65-115); Osmolality Calculated 273 mOsm/kg (285-295); Sodium 130 mmol/L (136-145); Total Bilirubin 0.7 mg/dL (0.15-1.2); Total Protein 6.5 g/dL (6.6-8.7)
[2021-11-19 06:25] LABS: Creatinine Clr Calc Pharmacy 52.4675
[2021-11-19] MEDS: escitalopram 10 mg Tablet 20 MG PO (08:11)
[2021-11-19] MEDS: propranolol 20 mg Tablet PO ×3 (08:11→20:31)
[2021-11-19] MEDS: gabapentin 300 mg Capsule PO ×2 (08:11→16:44)
[2021-11-19] MEDS: FUROsemide 20 mg Tablet PO (10:09)
[2021-11-19] MEDS: levofloxacin-dextrose 5 % 750 MG/150 ML PREMIX 100 MG IV (11:56)
--- NOTE | 2021-11-19 13:35 | PM.PN ---
Subjective Subjective: Interval history: She says she is feeling little bit better. She still coughing. Overnight she spiked a low-grade temperature of 100 Fahrenheit. We discussed results of the CT of her knee. Vitals/I&O/Wt Last Vital Signs Temp 98.0 F 11/19/21 12:00 Pulse 73 11/19/21 12:00 Resp 17 11/19/21 12:00 BP 101/60 11/19/21 12:00 Pulse Ox 96 11/19/21 12:00 11/18/21 11/19/21 11/19/21 22:59 06:59 14:59 Intake Total 300 / 300 750 / 750 Balance 300 / 300 750 / 750 Weight last 48 hrs Weight 136.078 kg Weight 136.078 kg Physical Exam Const: COMMON NORMALS: no acute distress, patient oriented x3 and alert GENERAL APPEARANCE: cooperative NUTRITIONAL APPEARANCE: obese morbidly obese ORIENTATION/CONSCIOUSNESS: Yes awake HENMT: COMMON NORMALS: oropharynx normal Neck/C-Spine: COMMON NORMALS: no JVD Resp: COMMON NORMALS: normal respiratory effort and clear to auscultation bilaterally AUSCULTATION: clear to auscultation bilaterally Cardio: COMMON NORMALS: no JVD, regular rhythm, S1 normal heart sound present, S2 normal heart sound present and No murmurs present (Cardio) RHYTHM: regular rhythm HEART SOUNDS: S1 normal heart sound present and S2 normal heart sound present GI: COMMON NORMALS: Normal to inspection, nondistended, normoactive bowel sounds present, Soft to palpation and non-tender PALPATION: Yes Soft to palpation Extremity: COMMON NORMALS: no joint enlargement GENERAL: Yes edema (trace) Neuro: COMMON NORMALS: patient oriented x3 and moves all extremities SENSORIUM/ORIENTATION: Yes alert Skin: COMMON NORMALS: no rashes or lesions noted GENERAL SKIN EXAM: no rashes or lesions noted Data : 11/19/21 05:26 11/19/21 05:26 A&P Assessment and plan (1) Hypoxia: With cough, low-grade fever, new hypoxia, right lower lobe opacification discussed with her her sister concerning for pneumonia. Starting on empiric antibiotic coverage currently. COVID-19 PCR was negative. Will obtain sputum culture if can provide. Urine bacterial antigens. Discussed with her her sister also regarding finding of mild pulmonary edema on presentation. Possibly secondary to component of diastolic congestive heart failure. Discussed also with benefit from assessment by sleep study after discharge. Discussed with benefit from weight loss. VQ scan without evidence of PE. Continue VTE prophylaxis. Monitor symptoms. Follows with pulmonology. On PFT nonspecific ventilatory limitation. Likely secondary combination of obstructive and restrictive ventilatory defects. Believed to also combination with congestive heart failure with preserved EF. Status: Acute (2) Exertional dyspnea: As above. Status: Acute (3) Acute kidney injury superimposed on CKD: Completed course of Bactrim. Also takes diclofenac at home. Also on Lasix, although states recently has been having leg swelling. Discussed with her to avoid NSAIDs. He states she used to use the Voltaren gel, but not any longer. Would also avoid Bactrim. Will hold olmesartan for now. Follow-up renal function. Status: Acute (4) Hyperkalemia: Resolved. Recently completed course of Bactrim. Also on olmesartan. History of CKD. Hold olmesartan. Low potassium diet. Recheck potassium level. Received Kayexalate. Calcium gluconate. Status: Acute (5) Left knee pain: Left knee x-ray, with finding suspicious for lateral dislocation or subluxation of patella, bone fragment along lateral aspect of the patella could represent an age-indeterminate fracture. Given difficulties with ambulation assessed with CT, without findings of acute osseous abnormality. Small joint effusion noted. Lemus's cyst. Degenerative disease. Status: Acute Qualifiers: Chronicity: unspecified Qualified Code(s): M25.562 - Pain in left knee (6) Sebaceous cyst: Resolving furuncle on skin of mid lower thoracic back. No surrounding erythema. No mass or fluctuance. Status: Acute Additional A&P Information Morbid obesity: Discussed with her would benefit from weight loss. She states has been trying, has been trying to increase her physical activity previously by walking around in circles when had the possibility living at one of her relatives places where there was room. Recently had not had a chance. Discussed with her importance of diet and exercise, discussed consideration of seeking assistance from pharmacotherapy with her primary provider to assist in weight loss. If all else fails, bariatric surgery may also be considered. SLE: Follows with Rheum Liver cirrhosis: Continue lactulose Esophageal varices: Propranolol Chronic migraines CKD Cytopenias: Follows with hematology Attestations Medical Necessity Statement*: Given pneumonia, new hypoxia, continue hospitalization currently reassess response to treatment and improvement in oxygenation, depending on condition possible return home tomorrow. 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
[2021-11-19] MEDS: enoxaparin 40 mg/0.4 mL Syringe SUBCUT (15:35)
[2021-11-19] MEDS: cyclobenzaprine 10 mg Tablet 5 MG PO (20:30)
[2021-11-19] MEDS: TRAMadol 50 mg Tablet PO (20:31)
[2021-11-20] VITALS: BP 119/65; PULSE 79; RESP 19; TEMP 36.9; O2SAT 93
[2021-11-20 04:00] VITALS: BP 113/58; PULSE 81; RESP 23; TEMP 36.7; O2SAT 95
[2021-11-20 05:37] LABS: Basophils % 0.7 %; Hematocrit 24.4 % (37.0-47.0); Hemoglobin 7.9 g/dL (11.5-15.3); Lymphocytes # 0.4 10^3/uL (0.8-4.8); Lymphocytes % 11.9 %; Mean Corpuscular HGB Conc 32.4 g/dL (30.0-36.0); Mean Corpuscular Hemoglobin 33.2 pg (28.0-34.0); Mean Corpuscular Volume 102.5 fl (81-99); Mean Platelet Volume 12.1 fL (7.4-10.4); Monocytes # 0.4 10^3/uL (0.2-0.9); Monocytes % 11.9 %; Neutrophils # 2.19 10^3/uL (1.8-7.7); Neutrophils % 74.2 %; Nucleated Red Blood Cells % 0 %; Platelet Count 74 10^3/cmm (130-400); Red Blood Count 2.38 10^6/uL (4.1-5.3); Red Cell Distribution Width 14.4 % (12.1-15.1)
[2021-11-20 06:16] LABS: Blood Urea Nitrogen 17 mg/dL (8-23); Calcium 8.2 mg/dL (8.5-10.5); Carbon Dioxide 27 mmol/L (22-29); Chloride 97 mmol/L (98-107); Glomerular Filtration Rate 38.2 mL/min (90-130); Glucose 111 mg/dL (65-115); Osmolality Calculated 276 mOsm/kg (285-295); Sodium 132 mmol/L (136-145)
[2021-11-20 08:00] VITALS: BP 141/76; PULSE 79; RESP 18; TEMP 37; O2SAT 97
[2021-11-20 08:02] VITALS: PULSE 81; RESP 20; O2SAT 95
[2021-11-20] MEDS: propranolol 20 mg Tablet PO (08:04)
[2021-11-20] MEDS: lactulose oral liq 20 gm/30 mL UDC PO (08:04)
[2021-11-20] MEDS: gabapentin 300 mg Capsule PO (08:04)
[2021-11-20] MEDS: escitalopram 10 mg Tablet 20 MG PO (08:04)
[2021-11-20 11:54] VITALS: O2SAT 85; O2SAT 90; O2SAT 95
[2021-11-20 12:00] VITALS: BP 147/70; PULSE 71; RESP 19; TEMP 37; O2SAT 98
[2021-11-20] MEDS: levofloxacin-dextrose 5 % 750 MG/150 ML PREMIX 100 MG IV (12:28)
--- NOTE | 2021-11-20 17:49 | PM.DCS ---
Discharge Providers Date of Admission: 11/18/21 12:43 Date of Discharge: November 20, 2021 Attending Provider at Admission: Lupillo Mccarthy Attending Provider at Discharge: Lupillo Mccarthy Primary Care Provider: Stephanie Tipton MD Diagnoses at Discharge Discharge Diagnosis (1) Hypoxia: Status: Acute (2) Exertional dyspnea: Status: Acute (3) Acute kidney injury superimposed on CKD: Status: Acute (4) Hyperkalemia: Status: Acute (5) Left knee pain: Status: Acute Qualifiers: Chronicity: unspecified Qualified Code(s): M25.562 - Pain in left knee (6) Sebaceous cyst: Status: Acute Reason for Visit Reason for Visit: SOB, BOTH KNEE PAINS Brief History: Very pleasant 60-year-old lady with history of morbid obesity, SLE, liver cirrhosis, question of possible AIH, although unconfirmed on liver biopsy, following with GI specialist, migraine headaches, following with neurology, current kidney disease, although was not aware of this, other chronic medical problems, recently also staying with multiple different relatives ever since selling her home, came to ER due to progressive dyspnea on exertion, limitation of exertion including due to knee pain, but also getting extremely tired. She states that she had had some cashew chicken earlier this week and could not taste it, although later states that she was joking. She does state she has been coughing. She has been having some loose stools, although this is not necessarily new. Denies nausea or vomiting. Denies orthopnea. Was referred recently for left knee x-ray, with finding suspicious for lateral dislocation or subluxation of patella, bone fragment along lateral aspect of the patella could represent an age-indeterminate fracture. She also was recently treated for sebaceous cyst with Bactrim. On presentation she is noted hyponatremia, sodium 128, hyperkalemia, potassium 5.9, with acute kidney injury on chronic kidney disease, BUN 29, creatinine 1.9. Chest x-ray with finding of interval development of mild pulmonary edema and increasing opacification in the right lower lobe increased opacification may be focal edema or pneumonitis. No dense consolidation or pneumonia. She is chronically very hard of hearing, right ear is a little bit better. Hospital Course Hospital Course Although initially afebrile, without leukocytosis, consideration was given to lack of response to Lasix due to acute kidney injury with mild pulmonary edema noted on chest x-ray, however, subsequently with cough, low-grade fever of 100 Fahrenheit, with also noted increasing opacification in right lower lobe, was started on Levaquin for pneumonia. After initial treatment with calcium gluconate, Kayexalate hyperkalemia improved. Acute kidney injury improving during hospitalization, with creatinine down to 1.4 today. She got up and worked with PT. As noted her dyspnea is considered multifactorial with combination of obstructive and restrictive lung disease as per pulmonology assessment. Currently with superimposed pneumonia due to which she qualified for nasal cannula oxygen which is arranged for her. She is also referred for sleep study for assessment of obstructive sleep apnea. Additional assessment during hospitalization with VQ scan was without evidence for PE. COVID-19 PCR was negative. As her mobility is also impaired by pain in her knees, specifically recently also with abnormal appearance of left patella on knee x-ray, possible age-indeterminate fracture, she was additionally assessed by knee CT which showed no visible acute osseous abnormality, small joint effusion, Lemus's cyst, degenerative joint disease. No erythema, warmth, swelling noted to suggest joint infection. She had no stigmata that may suggest septic embolic disease. Bacteremia after recent furuncle unlikely given she had completed the antibiotic course, however, in case of lack of resolution of symptoms, or any other concerning symptoms maintain low threshold for additional evaluation. Consider survey blood culture after completion of antibiotic course. Weight loss was discussed with her extensively and encouraged, please follow-up with her regarding options for weight loss, pharmacotherapy. If unsuccessful consideration for referral for bariatric surgery given obesity is likely contributing to multiple problems including her dyspnea, hypoxia, possible sleep apnea, as well as difficulty with mobility, exacerbating problems with her knees. Please follow-up renal function in office for resolution of ALEX, follow-up electrolytes for dilution of hyperkalemia. Olmesartan is discontinued on admission due to hyperkalemia. Please reassess after renal function is steady and consider whether resumption is safe. She is asked to avoid NSAIDs and other medications which may be injurious to her kidneys. Avoid Bactrim. Follow-up oxygenation and for improvement from acute pneumonia. Continue follow-up with pulmonology. Please reassess blood counts as well with noted pancytopenia, WBC 3, ANC 2190, hemoglobin 7.9, platelets 74,000. She is asked to continue follow-up with hematology. Physical Exam Narrative: EXAM NARRATIVE: Ambulating in the room with walker with PT. Reports she is feeling much better. Breathing improved. Cough improving. Const: COMMON NORMALS: no acute distress, patient oriented x3 and alert GENERAL APPEARANCE: cooperative NUTRITIONAL APPEARANCE: obese morbidly obese ORIENTATION/CONSCIOUSNESS: Yes awake HENMT: COMMON NORMALS: oropharynx normal Neck/C-Spine: COMMON NORMALS: no JVD Resp: COMMON NORMALS: normal respiratory effort and clear to auscultation bilaterally AUSCULTATION: clear to auscultation bilaterally Cardio: COMMON NORMALS: no JVD, regular rhythm, S1 normal heart sound present, S2 normal heart sound present and No murmurs present (Cardio) RHYTHM: regular rhythm HEART SOUNDS: S1 normal heart sound present and S2 normal heart sound present GI: COMMON NORMALS: Normal to inspection, nondistended, normoactive bowel sounds present, Soft to palpation and non-tender PALPATION: Yes Soft to palpation Extremity: COMMON NORMALS: no joint enlargement and no pedal edema Neuro: COMMON NORMALS: patient oriented x3 and moves all extremities SENSORIUM/ORIENTATION: Yes alert Skin: COMMON NORMALS: no rashes or lesions noted GENERAL SKIN EXAM: no rashes or lesions noted Discharge Data Data Completed and Pending: Completed Studies During Hospitalization Category Date Time Status CT knee LT wo con * [id number] Routine Cat Scan 11/18/21 14:48 Completed XR chest 1V olga lidia ble [id number] Stat Exams 11/18/21 10:20 Completed NM pul vent and p erfus* [id number] Routi ne Nuc Med 11/18/21 14:47 Completed Labs from last 24 hours 11/20/21 11/20/21 05:15 05:15 WBC 3.0 L RBC 2.38 L Hgb 7.9 L Hct 24.4 L MCV 102.5 H MCH 33.2 MCHC 32.4 RDW 14.4 Plt Count 74 L MPV 12.1 H Neut % (Auto) 74.2 Lymph % (Auto) 11.9 Wetzel % (Auto) 11.9 Eos % (Auto) 1.0 Baso % (Auto) 0.7 Neut # (Auto) 2.19 Lymph # (Auto) 0.4 L Wetzel # (Auto) 0.4 Eos # (Auto) 0.0 Baso # (Auto) 0.0 Nucleated RBC % (a uto) 0 Nucleated RBCs # 0.0 Sodium 132 L Potassium 5.0 Chloride 97 L Carbon Dioxide 27 Anion Gap 13.0 BUN 17 Creatinine 1.4 H GFR Calculation 38.2 L Glucose 111 Calculated Osmolal ity 276 L Calcium 8.2 L Vitals: Last Vital Signs Temp 98.6 F 11/20/21 12:00 Pulse 71 11/20/21 12:00 Resp 19 H 11/20/21 12:00 BP 147/70 11/20/21 12:00 Pulse Ox 98 11/20/21 12:00 Discharge Plan Discharge Patient Disposition: Home Condition: Stable Prescriptions: New levofloxacin 750 mg tablet 750 mg PO DAILY 6 Days Qty: 6 RF: 0 Continued propranolol 10 mg tablet 20 mg PO TID RF: 0 Ca-D3-mag lq-wvnf-myc-stacia-bor [Calcium 600-D3 Plus (mag-zinc)] 600 mg calcium- 800 unit-50 mg tablet 1 tab PO BID RF: 0 furosemide [Lasix] 20 mg tablet 20 mg PO DAILY RF: 0 albuterol sulfate 90 mcg/actuation HFA aerosol inhaler 2 puff inhalation 6XD PRN (Reason: shortness of breath or wheezing) 30 Days Qty: 8.5 RF: 3 clobetasol 0.05 % ointment 1 applic topical BID 14 Days Qty: 60 RF: 1 escitalopram oxalate 20 mg tablet See Rx Instructions .ROUTE .COMPLEX Qty: 90 RF: 0 gabapentin 300 mg capsule See Rx Instructions .ROUTE .COMPLEX Qty: 120 RF: 1 cyclobenzaprine 10 mg tablet See Rx Instructions .ROUTE .COMPLEX Qty: 60 RF: 0 tramadol 50 mg tablet 50 mg PO TID PRN (Reason: pain) Qty: 20 RF: 0 Discontinued sulfamethoxazole-trimethoprim [Bactrim DS] 800-160 mg tablet 1 tab PO BID 10 Days Qty: 20 RF: 0 diclofenac sodium [Voltaren Arthritis Pain] 1 % gel 4 g topical QID Qty: 100 RF: 1 olmesartan 20 mg tablet See Rx Instructions .ROUTE .COMPLEX Qty: 90 RF: 0 Discharge Orders: Discharge Order (Routine); Ordered 11/20/21 Ordered By: Lupillo Mccarthy Other Ambulatory Orders: Sleep Study/Titration (Routine) Timeframe: 1 Week Facility: [facility] Location: [facility] Ordered By: Lupillo Mccarthy DME: Oxygen (Order) Location: None Selected Ordered By: Lupillo Mccarthy DME: Walker (Order) Location: None Selected Ordered By: Lupillo Mccarthy Referrals: Stephanie Tipton MD [Primary Care Provider] - 4-7 days (Please call to make an appointment to be seen in 4-7 days.) Discharge Diet: As Directed Discharge Activity: Increase activity as tolerated, As per PT/OT instructions and Oxygen as instructed Patient Instructions: Levofloxacin (By mouth) (Levaquin, Levaquin Leva-delia), Acute Kidney Injury (DC), Chronic Kidney Disease (DC), Using Oxygen at Home (DC), Hyperkalemia (DC), Opioid Safety Activity Restrictions/Additional Instructions: Please complete antibiotic course for pneumonia. Follow-up with your primary doctor for reassessment for resolution of pneumonia. Resume follow-up with your lung specialist after resolution of pneumonia especially if you are still requiring oxygen. Please have your primary doctor follow-up also your renal function after acute kidney injury superimposed on chronic kidney disease. As well as checking the potassium level due to elevated potassium on presentation. Due to the above reasons please discontinue olmesartan for now. Maintain low potassium diet. Avoid any potassium supplements. Avoid Voltaren gel or other NSAIDs due to risk of kidney injury. Avoid Bactrim. Continue follow-up with hematology doctor for low blood counts. Please have your primary doctor recheck your blood counts including platelet levels at the next visit. Please follow-up with sleep study to assess for sleep apnea. Please discuss with your primary doctor options regarding weight loss options. Consideration of medications which may help you lose weight. Please discuss also regarding persistent pain in your knees which is contributing to difficulty walking. Discharge Attestations Time Spent in Discharge Care*: greater than 30 min Quality Metrics Clinical Quality Measures During this hospital stay, did patient experience: None Coding Level of Care Code Acute Chg FW DC note Diagnoses Hypoxia R09.02 Exertional dyspnea R06.00 Acute kidney injury superimposed on CKD N17.9; N18.9 Hyperkalemia E87.5 Left knee pain M25.562 Chronicity: unspecified Sebaceous cyst L72.3
== END 2021-11-20 14:36 | disposition home or self-care (01) | DRG 194 ==
LOC: ER 12:19 → MEDSURG 13:07
PROVIDERS: Admitting Provider Internal Medicine; Emergency Provider Family Medicine; PCP Family Medicine; Visit Provider Internal Medicine
DX: J18.9 Pneumonia, unspecified organism (principal); I13.0 Hypertensive heart and chronic kidney disease with heart failure and stage 1 through stage 4 chronic kidney disease, or unspecified chronic kidney disease; I50.30 Unspecified diastolic (congestive) heart failure; M50.00 Cervical disc disorder with myelopathy, unspecified cervical region; D61.818 Other pancytopenia; N17.9 Acute kidney failure, unspecified; E87.1 Hypo-osmolality and hyponatremia; J44.0 Chronic obstructive pulmonary disease with (acute) lower respiratory infection; I85.10 Secondary esophageal varices without bleeding; Z68.43 Body mass index [BMI] 50.0-59.9, adult; G89.29 Other chronic pain; M25.562 Pain in left knee; M25.561 Pain in right knee; N18.9 Chronic kidney disease, unspecified; F41.9 Anxiety disorder, unspecified; M54.31 Sciatica, right side; M48.02 Spinal stenosis, cervical region; M43.12 Spondylolisthesis, cervical region; K74.60 Unspecified cirrhosis of liver; M79.7 Fibromyalgia; M32.9 Systemic lupus erythematosus, unspecified; Z87.891 Personal history of nicotine dependence; E87.5 Hyperkalemia; G43.709 Chronic migraine without aura, not intractable, without status migrainosus; H91.93 Unspecified hearing loss, bilateral; M17.12 Unilateral primary osteoarthritis, left knee; M71.22 Synovial cyst of popliteal space [Baker], left knee; E66.01 Morbid (severe) obesity due to excess calories; L72.3 Sebaceous cyst
CPT/HCPCS: 36415; 71045; 73700; 78014; 80048; 80053; 85025; 85378; 87635; 93005; 94664; 94762; 97110; 97116; 97161; 99285; A9540; A9567; J0610; J1650; J1956

== ENCOUNTER → 2021-11-22 14:04 | Outpatient (BNVA) | payer MEDICAID, SELFPAY | PROVIDERS: PCP Family Medicine; Visit Provider Orthopaedic Surgery | DX: M54.2 Cervicalgia (principal); M47.812 Spondylosis without myelopathy or radiculopathy, cervical region | CPT/HCPCS: 72050 ==

== ENCOUNTER → 2021-11-30 17:05 | Outpatient (BNVA) | payer MEDICAID, SELFPAY | PROVIDERS: PCP Family Medicine; Visit Provider Family Medicine | DX: N17.9 Acute kidney failure, unspecified (principal) | CPT/HCPCS: 80053; 85007; 85027 ==

== ENCOUNTER 2021-12-05 16:05 | Outpatient (CLI) | payer MEDICAID, SELFPAY ==
--- NOTE | 2021-12-05 16:09 | XR_ITS ---
WS: [id number] CHEST 2 VIEWS HISTORY: Shortness of breath COMPARISON: 11/18/2021 Lungs: Improved aeration since the prior study. No pneumonia. Mild haziness over both lungs is probab ly related to body habitus and not pneumonitis. Pulmonary vasculature is normal. Cardiac size: Normal. Mediastinum/Aorta: Mild atherosclerosis aorta. Bones: Normal. *Cholecystectomy. XR/XR chest 2V* [id number] IMPRESSION: Improved aeration since 11/18/2021. No pneumonia.
== END 2021-12-05 16:06 | disposition home or self-care (01) ==
PROVIDERS: PCP Family Medicine; Visit Provider Internal Medicine Critical Care Medicine
DX: J18.9 Pneumonia, unspecified organism (principal); R06.02 Shortness of breath
CPT/HCPCS: 71046

== ENCOUNTER → 2021-12-21 13:31 | Outpatient (BNVA) | payer MEDICAID, SELFPAY | PROVIDERS: PCP Family Medicine; Referring Provider Orthopaedic Surgery; Visit Provider Orthopaedic Surgery | DX: M17.0 Bilateral primary osteoarthritis of knee (principal) | CPT/HCPCS: 73560; 73565 ==

== ENCOUNTER → 2021-12-28 08:55 | Outpatient (BNVA) | payer MEDICAID, SELFPAY | PROVIDERS: PCP Family Medicine; Visit Provider Internal Medicine Rheumatology | DX: L93.1 Subacute cutaneous lupus erythematosus (principal); R76.8 Other specified abnormal immunological findings in serum; Z71.85 Encounter for immunization safety counseling; Z79.899 Other long term (current) drug therapy; D75.9 Disease of blood and blood-forming organs, unspecified; D72.819 Decreased white blood cell count, unspecified; D69.6 Thrombocytopenia, unspecified; M54.41 Lumbago with sciatica, right side; N18.9 Chronic kidney disease, unspecified; Z87.891 Personal history of nicotine dependence | CPT/HCPCS: 99214 ==

== ENCOUNTER → 2022-01-05 13:40 | Outpatient (BNVA) | payer MEDICAID, SELFPAY | PROVIDERS: PCP Family Medicine; Visit Provider Family Medicine | DX: M32.9 Systemic lupus erythematosus, unspecified (principal); Z79.899 Other long term (current) drug therapy; N18.9 Chronic kidney disease, unspecified; R60.9 Edema, unspecified; R76.8 Other specified abnormal immunological findings in serum | CPT/HCPCS: 80053; 85025; 86140 ==

== ENCOUNTER 2022-01-19 16:19 | Emergency (ER) | payer MEDICAID, SELFPAY ==
[2022-01-19] VITALS (8 sets, daily range): BP systolic 108–167; BP diastolic 85–89; PULSE 97–114; RESP 12–26; O2SAT 87–96; BMI 40.3
--- NOTE | 2022-01-19 16:25 | XRR_ITS ---
PROCEDURE INFORMATION: Exam: XR Chest Exam date and time: 01/19/2022 4:25 PM Age: 61 years old Clinical indication: Pain; Chest pressure; Additional info: Cp TECHNIQUE: Imaging protocol: XR of the chest. Views: 1 view. COMPARISON: CR XR chest 2V* [id number] 12/05/2021 4:14 PM FINDINGS: Lungs: Unremarkable. No consolidation. Pleural spaces: Unremarkable. No pleural effusion. No pneumothorax. Heart/Mediastinum: Unremarkable. No cardiomegaly. Bones/joints: Unremarkable. XR/XR chest 1V portable [id number] IMPRESSION: No change, lungs clear
--- NOTE | 2022-01-19 16:26 | ECG_ITS ---
[facility] Test Date: 2022-01-19 Pat Name: Verónica Pat Department: Room: Gender: Female Carpenter Mold: : 1960 Requested By: Stalin Lorenzana Order Number: [id number] Margarito MD: Ousmane Montes M.D. Measurements Intervals Emerson Rate: 101 P: 75 HI: 121 QRS: 40 QRSD: 86 T: 22 QT: 387 QTc: 502 Interpretive Statements SINUS TACHYCARDIA LOW QRS VOLTAGE IN PRECORDIAL LEADS [QRS DEFLECTION < 1.0 mV IN CHEST LEADS] MODERATE T-WAVE ABNORMALITY, CONSIDER ANTERIOR ISCHEMIA [-0.1+ mV T-WAVE IN V3/V4] Compared to ECG 01/19/2022 18:10:46 No significant changes Electronically Signed On 01-20-2022 12:26:50 [employer] by Ousmane Montes M.D. [id number]
--- NOTE | 2022-01-19 16:26 | CTR_ITS ---
PROCEDURE INFORMATION: Exam: CT Head Without Contrast Exam date and time: 01/19/2022 4:26 PM Age: 61 years old Clinical indication: Syncope and collapse; Patient HX: Syncope. PT unable to hold still. Multiple attempt made with instructions and padding, best images possible TECHNIQUE: Imaging protocol: Computed tomography of the head without contrast. Radiation optimization: All CT scans at this facility use at least one of these dose optimization techniques: automated exposure control; mA and/or kV adjustment per patient size (includes targeted exams where dose is matched to clinical indication); or iterative reconstruction. COMPARISON: CT head wo con* [id number] 08/30/2020 1:55 AM RADIATION DOSE METRICS: Total DLP (mGy-cm): 2015.84 FINDINGS: Brain: In the left basal ganglia extending to the merino radiata there is new ill-defined hypodensity measuring up to 2.7 x 1.2 x 2.4 cm. The appearance is suspicious for recent subacute ischemia. No hemorrhage or significant mass effect. Mild sulcal widening is consistent with age. Cerebral ventricles: No ventriculomegaly. Paranasal sinuses: Visualized sinuses are unremarkable. No fluid levels. Mastoid air cells: Visualized mastoid air cells are well aerated. Bones/joints: Chronic left occipital cranioplasty. Soft tissues: Unremarkable. CT/CT head wo con* [id number] IMPRESSION: Left basal ganglia edema suspicious for recent ischemia. No hemorrhage or significant mass effect.
--- NOTE | 2022-01-19 16:27 | W.ED.SOB ---
HPI - SOB/Dyspnea General: Chief Complaint: Altered Mental Status Stated Complaint: AMS FOUND ON FLOOR COVID + Time Seen by Provider: 01/19/22 16:20 History of Present Illness: HPI Narrative: 59-year-old female presents due to fall and shortness of breath. She was found on floor by family and was laying there for 12 hours. Not from her second half she felt denies any headache or neck pain. Denies abdominal pain. Does report achy diffuse burning chest pain that does not radiate to back. Denies any exertional pleuritic component. Also reports shortness of breath. Denies lower extremity pain or swelling. Patient is known to be Covid positive. Review of Systems Narrative: - CONSTITUTIONAL: Denies weight loss, fever and chills. - HEENT: Denies changes in vision and hearing. - RESPIRATORY: As above - CV: As above - GI: Denies abdominal pain, nausea, vomiting and diarrhea. - : Denies dysuria and urinary frequency. - MSK: Denies myalgia and joint pain. - SKIN: Denies rash and pruritus. - NEUROLOGICAL: Denies headache, weakness, numbness and syncope. - PSYCHIATRIC: Denies suicidal ideation [facility] PFSH: Medical History (Updated 12/28/21 @ 09:53 by Terrance Zamarripa MD) Acute kidney injury superimposed on CKD Anxiety Autoimmune hepatitis Back pain with right-sided sciatica Cervical disc disorder with myelopathy of mid-cervical region Cirrhosis of liver CKD (chronic kidney disease) Cytopenia Exertional dyspnea Fibromyalgia High risk medication use Hypertension Immunization counseling Immunization counseling Left knee pain Leukopenia Positive SU (antinuclear antibody) Scl-70 antibody positive Sebaceous cyst Shortness of breath SLE (systemic lupus erythematosus) Spondylolisthesis, cervical region 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 Occipital craniotomy History of surgery on arm LEFT Family History Other CAD (coronary artery disease) Cancer Hypertension Stroke Denies family history of Rheumatoid arthritis Diabetes Lupus Social History Smoking and tobacco status: former smoker Quit status (tobacco): has quit using tobacco Year quit tobacco: 1993 Former quit date comment: Hx of 1 PPD x 15 Years Second hand smoke exposure: No Smoking risk assessment/counseling performed?: No Alcohol intake: never Counseling given: No Counseling given: No Lives independently: Yes Household members: none Marital status: Current occupational status: unemployed History of recent travel: No Current gender identity: Female Physical Exam Narrative: EXAM NARRATIVE: - GENERAL: Alert and oriented x 3. No acute distress. Well-nourished. - EYES: EOMI. Anicteric. - HENT: Atraumatic, no C-spine tenderness. Moist mucous membranes. No scleral icterus. No cervical lymphadenopathy. - LUNGS: Bilateral wheezing. No accessory muscle use. Equal lung sounds bilaterally. No respiratory distress. - CARDIOVASCULAR: Regular rate and rhythm. No murmur. No JVD. - ABDOMEN: Soft, non-tender and non-distended. Negative CVA tenderness bilaterally, no rebound or guarding, negative Uriostegui sign. No palpable masses. - EXTREMITIES: No edema. Non-tender. - SKIN: No rashes or lesions. Warm. - NEUROLOGIC: No meningismus or focal neurological deficits. CN II-XII grossly intact. - PSYCHIATRIC: Cooperative. Appropriate mood and affect. Course Vital Signs: Vital signs: Vital Signs Pulse Rate 97 01/19/22 18:35 Respiratory Rate 22 H 01/19/22 17:13 Blood Pressure 165/89 01/19/22 16:22 Pulse Oximetry 96 01/19/22 18:35 MDM - SOB/Dyspnea Medical Decision Making 59-year-old female presents due to shortness of breath and chest pain. She recently had a fall at home. Patient is known Covid positive. Does appear to be more confused than normal. CT scan reveals possible remote basal ganglia infarction however her last known well was more than 12 hours ago and she is not a TPA candidate at this time. CT of the chest however is concerning for PEs with heart strain. She is requiring BiPAP due to work of breathing. Otherwise troponin and BNP are also elevated concerning for heart strain as well. Started on Lovenox. Discussed with financial reporting director at [facility] where they have appropriate subspecialty backup and are able to perform thrombolysis if needed. Patient is currently in stable condition awaiting transfer. Lab Data : 01/19/22 17:14 01/19/22 17:14 Labs/Radiology: Radiology Impressions Chest X-Ray 01/19/22 16:25 IMPRESSION: No change, lungs clear Head CT 01/19/22 16:26 IMPRESSION: Left basal ganglia edema suspicious for recent ischemia. No hemorrhage or significant mass effect. ADDENDUM: 01/19/22 9900 THIS REPORT CONTAINS FINDINGS THAT MAY BE CRITICAL TO PATIENT CARE. The findings were verbally communicated via telephone conference with Stalin Lorenzana at 6:19 PM STRUCTURAL METAL WORKER on 01/19/2022. The findings were acknowledged and understood. Chest CTA 01/19/22 18:11 IMPRESSION: 1. Multiple bilateral pulmonary emboli with a moderate to large clot burden. 2. Evidence of right ventricular strain including an elevated RV/LV ratio of 1.5. 3. Focal pulmonary infarction/atelectasis in the right lower lobe superior segment 4. Liver cirrhosis with splenomegaly Laboratory Results WBC 15.4 10^3/uL (4.0-10.0) H 01/19/22 17:14 RBC 4.60 10^6/uL (4.1-5.3) 01/19/22 17:14 Hgb 13.8 g/dL (11.5-15.3) 01/19/22 17:14 Hct 42.0 % (37.0-47.0) 01/19/22 17:14 MCV 91.3 fl (81-99) 01/19/22 17:14 MCH 30.0 pg (28.0-34.0) 01/19/22 17:14 MCHC 32.9 g/dL (30.0-36.0) 01/19/22 17:14 RDW 14.6 % (12.1-15.1) 01/19/22 17:14 Plt Count 134 10^3/cmm (130-400) 01/19/22 17:14 MPV 11.5 fL (7.4-10.4) H 01/19/22 17:14 Neut % (Auto) 87.0 % 01/19/22 17:14 Lymph % (Auto) 6.2 % 01/19/22 17:14 Anderson % (Auto) 6.0 % 01/19/22 17:14 Eos % (Auto) 0.0 % 01/19/22 17:14 Baso % (Auto) 0.3 % 01/19/22 17:14 Neut # (Auto) 13.41 10^3/uL (1.8-7.7) H 01/19/22 17:14 Lymph # (Auto) 1.0 10^3/uL (0.8-4.8) 01/19/22 17:14 Anderson # (Auto) 0.9 10^3/uL (0.2-0.9) 01/19/22 17:14 Eos # (Auto) 0.0 10^3/uL (0.0-0.8) 01/19/22 17:14 Baso # (Auto) 0.1 10^3/uL (0.0-0.1) 01/19/22 17:14 Nucleated RBC % (auto) 0 % 01/19/22 17:14 Nucleated RBCs # 0.0 /100WBC 01/19/22 17:14 D-Dimer >= 20.00 ug/mIFEU (0-0.59) H 01/19/22 17:14 Specimen Type Arterial 01/19/22 16:52 Sample Site Radial, right 01/19/22 16:52 ABG pH 7.49 (7.35-7.45) H 01/19/22 16:52 ABG pCO2 30.9 mmHg (35-45) L 01/19/22 16:52 ABG pO2 64.3 mmHg (80.0-100.0) L 01/19/22 16:52 ABG HCO3 23.5 mmol/L (22-26) 01/19/22 16:52 ABG O2 Saturation 93.6 01/19/22 16:52 ABG Base Excess 0.9 mmol/L (-2.0-2.0) 01/19/22 16:52 Carlitos Test Pos 01/19/22 16:52 A-a O2 Gradient 20.0 mmHg (5-10) H 01/19/22 16:52 Hematocrit 40.9 % (37-47) 01/19/22 16:52 Hgb O2 Saturation 91.4 % (95-100) L 01/19/22 16:52 Carboxyhemoglobin 1.5 %THgb (0.4-20.1) 01/19/22 16:52 Methemoglobin 0.8 % (0.4-1.5) 01/19/22 16:52 Total Hemoglobin 13.3 g/dL (12-16) 01/19/22 16:52 Sodium 137.0 mmol/L (131-143) 01/19/22 16:52 Potassium 4.1 mmol/L (3.5-5.0) 01/19/22 16:52 Glucose 172.0 mg/dL (70-115) H 01/19/22 16:52 Ionized Calcium 1.2 mmol/L (1.1-1.4) 01/19/22 16:52 O2 Delivery Device Nc 01/19/22 16:52 O2 Liters/Min 4.0 % 01/19/22 16:52 FiO2 36.0 % 01/19/22 16:52 Heavy Equipment Plumbing Supervisor ID [id number] 01/19/22 16:52 Sodium 135 mmol/L (136-145) L 01/19/22 17:14 Potassium 4.2 mmol/L (3.5-5.1) 01/19/22 17:14 Chloride 97 mmol/L (98-107) L 01/19/22 17:14 Carbon Dioxide 24 mmol/L (22-29) 01/19/22 17:14 Anion Gap 18.2 (5-19) 01/19/22 17:14 BUN 15 mg/dL (8-23) 01/19/22 17:14 Creatinine 1.3 mg/dL (0.5-0.9) H 01/19/22 17:14 GFR Calculation 41.5 mL/min (90-130) L 01/19/22 17:14 Glucose 173 mg/dL (65-115) H 01/19/22 17:14 Calculated Osmolality 285 mOsm/kg (285-295) 01/19/22 17:14 Calcium 9.8 mg/dL (8.5-10.5) 01/19/22 17:14 Total Bilirubin 2.5 mg/dL (0.15-1.2) H 01/19/22 17:14 AST 63 U/L (0-32) H 01/19/22 17:14 ALT 48 U/L (0-33) H 01/19/22 17:14 Alkaline Phosphatase 104 IU/L (35-105) 01/19/22 17:14 Creatine Kinase 175 U/L (26-192) 01/19/22 17:14 Troponin T Baseline 311 ng/L (0-10) H* 01/19/22 17:14 NT-Pro-B Natriuret Pep 7395 pg/mL (0-125) H 01/19/22 17:14 Total Protein 8.0 g/dL (6.6-8.7) 01/19/22 17:14 Albumin 4.5 g/dL (3.5-5.2) 01/19/22 17:14 Globulin 3.5 g/dL (1.3-4.6) 01/19/22 17:14 EKG Data EKG 1: Other EKG Comments: Sinus tachycardia, rate of 106, T wave inversions anteriorly, no sign of acute ischemia or other acute abnormality. Critical Care Time Critical Care Time: Critical Care Time: Yes Total Critical Care Time: 45 Attestation: This case had a high probability of a clinically significant, sudden, or life threatening deterioration of this patient's condition which required my full and direct attention, intervention and personal management. Discharge Plan Discharge Condition: Stable Prescriptions: No Action prednisone 10 mg tablet 10 mg PO DAILY PRN (Reason: for flares) Qty: 30 1RF leflunomide 10 mg tablet 10 mg PO DAILY Qty: 30 3RF propranolol 10 mg tablet 20 mg PO TID 0RF albuterol sulfate 90 mcg/actuation HFA aerosol inhaler 2 puff inhalation 6XD PRN (Reason: shortness of breath or wheezing) 30 Days Qty: 8.5 3RF calcium carbonate-vitamin D3 [Calcium 600 with Vitamin D3] 600 mg(1,500mg) -500 unit capsule PO 0RF tramadol 50 mg tablet 50 mg PO TID PRN (Reason: pain) Qty: 90 0RF gabapentin 300 mg capsule See Rx Instructions .ROUTE .COMPLEX Qty: 120 0RF Dose Instruction: TAKE 1 CAPSULE BY MOUTH EVERY MORNING, NOON AND 2 CAPSULES EVERY DAY AT BEDTIME Rx Instructions: TAKE 1 CAPSULE BY MOUTH EVERY MORNING, NOON AND 2 CAPSULES EVERY DAY AT BEDTIME escitalopram oxalate 20 mg tablet See Rx Instructions .ROUTE .COMPLEX Qty: 90 1RF Dose Instruction: TAKE 1 TABLET BY MOUTH DAILY Rx Instructions: TAKE 1 TABLET BY MOUTH DAILY cyclobenzaprine 10 mg tablet See Rx Instructions .ROUTE .COMPLEX Qty: 60 0RF Dose Instruction: TAKE ONE TO TWO TABLETS BY MOUTH EVERY DAY AT BEDTIME Rx Instructions: TAKE ONE TO TWO TABLETS BY MOUTH EVERY DAY AT BEDTIME furosemide [Lasix] 20 mg tablet 20 mg PO DAILY Qty: 30 0RF Discharge Orders: Transfer Out of Facility (Order); Ordered 01/19/22 Ordered By: Stalin Lorenzana Referrals: Stephanie Tipton MD [Primary Care Provider] - Coding Level of Care Code ED Medical Coding Auditor for [facility] [place]
[2022-01-19] MEDS: ipratropium-albuterol 3 mL Neb INHALATION (16:48)
[2022-01-19 17:03] LABS: ABG PCO2 30.9 mmHg (35-45); ABG PH Result 7.49 (7.35-7.45); Arterial Blood Gas Hematocrit 40.9 % (37-47); Base Excess ABG 0.9 mmol/L (-2.0-2.0); Blood Gas Allen Test Pos; Blood Gas Operator Identificat AMH; Blood Gas Sample Site Radial, right; Blood Gas Sample Type Arterial; Carboxyhemoglobin 1.5 %THgb (0.4-20.1); HCO3 ABG 23.5 mmol/L (22-26); HGB O2 Sat 91.4 % (95-100); Ionized Calcium Level - ABG 1.2 mmol/L (1.1-1.4); Methemoglobin 0.8 % (0.4-1.5); Oxygen Device NC; Oxygen Saturation ABG 93.6; PO2 ABG 64.3 mmHg (80.0-100.0); Potassium Level - ABG 4.1 mmol/L (3.5-5.0); Total Hemoglobin 13.3 g/dL (12-16)
[2022-01-19 17:27] LABS: Basophils # 0.1 10^3/uL (0.0-0.1); Basophils % 0.3 %; Hemoglobin 13.8 g/dL (11.5-15.3); Lymphocytes % 6.2 %; Mean Corpuscular HGB Conc 32.9 g/dL (30.0-36.0); Mean Corpuscular Volume 91.3 fl (81-99); Mean Platelet Volume 11.5 fL (7.4-10.4); Monocytes # 0.9 10^3/uL (0.2-0.9); Neutrophils # 13.41 10^3/uL (1.8-7.7); Nucleated Red Blood Cells % 0 %; Platelet Count 134 10^3/cmm (130-400); Red Cell Distribution Width 14.6 % (12.1-15.1); White Blood Count 15.4 10^3/uL (4.0-10.0)
--- NOTE | 2022-01-19 17:39 | PC.NURSE ---
Spoke to sister of pt. sister states that pt fell at some point between yesterday at 2100 when family last talked to her. sister stated that pt was found around 1530 on the floor for an unknown amount of time. Sister also stated that pt has been vaccinated and tested COVID + on 01/16/22.
--- NOTE | 2022-01-19 17:42 | PC.NURSE ---
continuous BP, cardiac, and SpO2 monitoring initiated upon arrival into room.
[2022-01-19 17:54] LABS: Troponin(5th) Baseline 311 ng/L (0-10)
[2022-01-19 17:57] LABS: Alanine Aminotransferase 48 U/L (0-33); Albumin Level 4.5 g/dL (3.5-5.2); Alkaline Phosphatase 104 IU/L (35-105); Anion Gap 18.2 (5-19); Aspartate Amino Transferase 63 U/L (0-32); Blood Urea Nitrogen 15 mg/dL (8-23); Calcium 9.8 mg/dL (8.5-10.5); Carbon Dioxide 24 mmol/L (22-29); Chloride 97 mmol/L (98-107); Creatine Phosphokinase 175 U/L (26-192); Globulin 3.5 g/dL (1.3-4.6); Glomerular Filtration Rate 41.5 mL/min (90-130); Glucose 173 mg/dL (65-115); NT Pro B Type Natriuretic Pept 7395 pg/mL (0-125); Osmolality Calculated 285 mOsm/kg (285-295); Potassium 4.2 mmol/L (3.5-5.1); Sodium 135 mmol/L (136-145); Total Bilirubin 2.5 mg/dL (0.15-1.2)
[2022-01-19 17:58] LABS: D Dimer >= 20.00 ug/mIFEU (0-0.59)
--- NOTE | 2022-01-19 18:11 | CTR_ITS ---
PROCEDURE INFORMATION: Exam: CTA Chest With Contrast Exam date and time: 01/19/2022 6:11 PM Age: 61 years old Clinical indication: Shortness of breath; Patient HX: Elevated d-dimer, covid +; Additional info: Pe TECHNIQUE: Imaging protocol: Computed tomographic angiography of the chest with contrast. 3D rendering (Not supervised by radiologist): MIP and/or 3D reconstructed images were created by the technologist. Radiation optimization: All CT scans at this facility use at least one of these dose optimization techniques: automated exposure control; mA and/or kV adjustment per patient size (includes targeted exams where dose is matched to clinical indication); or iterative reconstruction. Contrast material: VISIPAQUE 320; Contrast volume: 54 ml; Contrast route: INTRAVENOUS (IV); COMPARISON: CTA Chest w Abd/Pel w* 11/07/2018 7:43 PM RADIATION DOSE METRICS: Total DLP (mGy-cm): 551.21 FINDINGS: Pulmonary arteries: Overall exam quality is good for evaluating the pulmonary arteries. There are multiple new tubular intraluminal filling defects in both main pulmonary arteries extending into the upper and lower lobe vessels. There is nearly complete occlusion of both posterior basal segmental arteries. There is a focal area of infarction in the superior segment of the right lower lobe. There is no saddle embolus. Aorta: Unremarkable. No aortic aneurysm. No aortic dissection. Lungs: No evidence of pneumonia. Pleural spaces: Unremarkable. No pneumothorax. No pleural effusion. Heart: The intraventricular septum is abnormally straightened. Heart RV/LV ratio: The RV/LV ratio is elevated to 1.5. Lymph nodes: Unremarkable. No enlarged lymph nodes. Liver: The liver surface is nodular suggestive of cirrhosis. Gallbladder and bile ducts: The gallbladder is surgically absent. Spleen: The spleen remains enlarged but is not fully included on the scan. Bones/joints: Unremarkable. No acute fracture. Soft tissues: Unremarkable. CT/CT angio chest PE protcl [id number] IMPRESSION: 1. Multiple bilateral pulmonary emboli with a moderate to large clot burden. 2. Evidence of right ventricular strain including an elevated RV/LV ratio of 1.5. 3. Focal pulmonary infarction/atelectasis in the right lower lobe superior segment 4. Liver cirrhosis with splenomegaly
--- NOTE | 2022-01-19 18:26 | ECG_ITS ---
[facility] Test Date: 2022-01-19 Pat Name: Verónica Pat Department: Room: Gender: Female Core Blower: : 1960 Requested By: Stalin Lorenzana Order Number: [id number] Margarito MD: Ousmane Montes M.D. Measurements Intervals [place] Rate: 106 P: 81 WV: 157 QRS: -3 QRSD: 88 T: -2 QT: 316 QTc: 421 Interpretive Statements SINUS TACHYCARDIA LOW QRS VOLTAGE IN PRECORDIAL LEADS [QRS DEFLECTION < 1.0 mV IN CHEST LEADS] ST DEVIATION AND MODERATE T-WAVE ABNORMALITY, CONSIDER ANTERIOR ISCHEMIA [-0.1+ mV T-WAVE IN V3/V4] Compared to ECG 11/18/2021 10:49:39 T-wave abnormality now present Possible ischemia now present Sinus rhythm no longer present Sinus arrhythmia no longer present Electronically Signed On 01-20-2022 12:30:10 PIN WORKER by Ousmane Montes M.D. [email or web address]
[2022-01-19] MEDS: iodixanol 320 mg/mL 100mL Btl IV (18:45)
[2022-01-19] MEDS: enoxaparin 120 mg/0.8 mL Syringe 110 MG SUBCUT (19:20)
--- NOTE | 2022-01-19 19:29 | PC.NURSE ---
Solu-Medrol IVP was administer by SUZANNE Olmedo
[2022-01-19 20:22] LABS: Troponin 5 2HR 266.5 ng/L (0-10)
== END 2022-01-19 21:20 ==
PROVIDERS: Emergency Provider Emergency Medicine; PCP Family Medicine
DX: R06.02 Shortness of breath (principal); R07.9 Chest pain, unspecified; U07.1 COVID-19; I10 Essential (primary) hypertension; M32.9 Systemic lupus erythematosus, unspecified; Z87.891 Personal history of nicotine dependence
CPT/HCPCS: 36600; 70450; 71045; 71275; 80051; 80053; 82330; 82550; 82805; 83880; 84484; 85025; 85378; 93005; 94640; 94660; 96372; 96374; 99291; J1650; J2930; Q9967

== ENCOUNTER → 2022-02-08 13:23 | Outpatient (BNVA) | payer MEDICAID, SELFPAY | PROVIDERS: PCP Family Medicine; Visit Provider Family Medicine | DX: M32.9 Systemic lupus erythematosus, unspecified (principal); Z79.899 Other long term (current) drug therapy | CPT/HCPCS: 80076; 82565 ==

== ENCOUNTER 2022-02-10 10:57 | Outpatient (CLI) | payer MEDICAID, SELFPAY ==
[2022-02-10 11:40] LABS: Basophils % 0.6 %; Eosinophils # 0.1 10^3/uL (0.0-0.8); Eosinophils % 4.3 %; Hematocrit 33.3 % (37.0-47.0); Hemoglobin 10.5 g/dL (11.5-15.3); Lymphocytes # 0.4 10^3/uL (0.8-4.8); Lymphocytes % 21.5 %; Mean Corpuscular HGB Conc 31.5 g/dL (30.0-36.0); Mean Corpuscular Hemoglobin 30.4 pg (28.0-34.0); Mean Corpuscular Volume 96.5 fl (81-99); Monocytes # 0.1 10^3/uL (0.2-0.9); Monocytes % 7.4 %; Neutrophils # 1.08 10^3/uL (1.8-7.7); Neutrophils % 66.2 %; Nucleated Red Blood Cells % 0 %; Platelet Count 70 10^3/cmm (130-400); Red Blood Count 3.45 10^6/uL (4.1-5.3); Red Cell Distribution Width 16.6 % (12.1-15.1); White Blood Count 1.6 10^3/uL (4.0-10.0)
[2022-02-10 11:43] LABS: Erythrocyte Sedimentation Rate 27 mm/hr (0-15)
[2022-02-10 12:03] LABS: Alanine Aminotransferase 30 U/L (0-33); Albumin Level 3.6 g/dL (3.5-5.2); Alkaline Phosphatase 75 IU/L (35-105); Aspartate Amino Transferase 33 U/L (0-32); Blood Urea Nitrogen 7 mg/dL (8-23); Calcium 8.8 mg/dL (8.5-10.5); Carbon Dioxide 25 mmol/L (22-29); Chloride 103 mmol/L (98-107); Globulin 2.9 g/dL (1.3-4.6); Glomerular Filtration Rate 56.2 mL/min (90-130); Glucose 111 mg/dL (65-115); Osmolality Calculated 287 mOsm/kg (285-295); Sodium 139 mmol/L (136-145); Total Bilirubin 0.5 mg/dL (0.15-1.2); Total Protein 6.5 g/dL (6.6-8.7)
[2022-02-10 12:11] LABS: Anion Gap 14.9 (5-19); Potassium 3.9 mmol/L (3.5-5.1)
[2022-02-10 12:32] LABS: Tumor Marker Alpha Fetoprotein 5.9 ng/mL (0-8.3)
== END 2022-02-10 10:58 | disposition home or self-care (01) ==
PROVIDERS: PCP Family Medicine; Visit Provider Internal Medicine Medical Oncology
DX: D61.818 Other pancytopenia (principal); L93.1 Subacute cutaneous lupus erythematosus; I10 Essential (primary) hypertension; N18.9 Chronic kidney disease, unspecified; M47.9 Spondylosis, unspecified; M79.7 Fibromyalgia; F32.A Depression, unspecified; F41.9 Anxiety disorder, unspecified; Z79.899 Other long term (current) drug therapy
CPT/HCPCS: 36415; 80053; 82105; 85025; 85651

== ENCOUNTER 2022-02-13 14:24 | Outpatient (CLI) | payer MEDICAID, SELFPAY ==
[2022-02-13 16:44] LABS: Add Urine Microscopic? NO; Charge for UA Resulting for Rev
[2022-02-13 16:51] LABS: Basophils % 0.6 %; Eosinophils # 0.1 10^3/uL (0.0-0.8); Eosinophils % 3.3 %; Hematocrit 34.2 % (37.0-47.0); Hemoglobin 11.2 g/dL (11.5-15.3); Lymphocytes # 0.6 10^3/uL (0.8-4.8); Mean Corpuscular HGB Conc 32.7 g/dL (30.0-36.0); Mean Corpuscular Hemoglobin 30.9 pg (28.0-34.0); Mean Corpuscular Volume 94.2 fl (81-99); Mean Platelet Volume 13.4 fL (7.4-10.4); Monocytes # 0.3 10^3/uL (0.2-0.9); Monocytes % 8.6 %; Neutrophils # 2.34 10^3/uL (1.8-7.7); Neutrophils % 69.2 %; Nucleated Red Blood Cells % 0 %; Platelet Count 121 10^3/cmm (130-400); Red Blood Count 3.63 10^6/uL (4.1-5.3); Red Cell Distribution Width 16.7 % (12.1-15.1); White Blood Count 3.4 10^3/uL (4.0-10.0)
[2022-02-13 16:52] LABS: Bilirubin Urine Neg (Negative); Blood Urine Neg (Negative); Glucose Urine UA Norm (Normal); Ketones Urine Negative (Negative); Leukocyte Esterase Urine Negative (Negative); Nitrate Urine Negative (Negative); Protein Urine Neg (Negative); Urine Appearance Clear (CLEAR); Urine Color Yellow (Yellow); Urobilinogen Urine Norm (Negative); pH Urine 5 (5-7)
[2022-02-13 17:23] LABS: INR 1.85 (0.8-1.2)
[2022-02-13 17:27] LABS: Thyroid Stimulating Hormone 2.85 uIU/mL (0.27-4.20); Tumor Marker Alpha Fetoprotein 6.1 ng/mL (0-8.3)
[2022-02-13 17:38] LABS: Alanine Aminotransferase 31 U/L (0-33); Alkaline Phosphatase 80 IU/L (35-105); Anion Gap 18.3 (5-19); Aspartate Amino Transferase 27 U/L (0-32); Blood Urea Nitrogen 7 mg/dL (8-23); Calcium 9.2 mg/dL (8.5-10.5); Carbon Dioxide 25 mmol/L (22-29); Chloride 98 mmol/L (98-107); Globulin 2.9 g/dL (1.3-4.6); Glomerular Filtration Rate 45.5 mL/min (90-130); Glucose 109 mg/dL (65-115); Lactate Dehydrogenase 244 U/L (135-214); Osmolality Calculated 285 mOsm/kg (285-295); Potassium 3.3 mmol/L (3.5-5.1); Sodium 138 mmol/L (136-145); Total Bilirubin 0.6 mg/dL (0.15-1.2); Total Protein 6.9 g/dL (6.6-8.7)
--- NOTE | 2022-02-14 07:27 | ONC FU_ITS ---
Dr. Marin Patient Follow-Up Note Patient: Verónica Pat Unit #: [id number]: 1960 Dicatated By: Jerel Marin M.D.Date of Visit:Feb 13, 2022 Onc Med Follow-up/Prog Note Chief Complaint: Pancytopenia. History of Present Illness: This is a 61 year-old woman with mild pancytopenia. She was diagnosed with cutaneous lupus by skin biopsy in 2013 and treated with hydroxychloroquine. She has additional history of liver cirrhosis, presumably due to autoimmune hepatitis, apparently diagnosed by liver biopsy in 2008. She had been on treatment with azathioprine, but that was stopped due multiple blood counts showing mild pancytopenia. Her CBC from August 30, 2020 showed hemoglobin 11.6 g with hematocrit 35.6%. The red cell indices were borderline high. The white blood cell count was 3600 with the differential showing 74% neutrophils, 12% lymphocytes, 10% monocytes, and 1% eosinophils. I had seen her initially on 10/25/2020. In reviewing her records in [facility] she had a total of 6 blood counts done here during 2019, all showing mild anemia with hemoglobin levels in the range of 11 g, mild leukopenia ranging from 7223-0911, and mild thrombocytopenia ranging from 88,002 122,000. There had been multiple previous CBCs dating back to 2013, and as far back as 2016 all of these had shown similar findings with just one exception, which I suspected to have been an inaccurate result. A CT abdomen/pelvis from 07/12/2019 showed mildly irregular liver margins suggesting cirrhosis. Also noted was chronic splenomegaly. There was no acute process noted at that time. Her laboratory studies from 10/25/2020 included CBC showing hemoglobin 11.5 g, white blood cell count 5600, and platelet count 128,000. The red cell indices were borderline high. Sed rate was mildly elevated at 44 mm/h. LDH was mildly elevated at 337 U/L but with normal haptoglobin 148.0 mg/L. Comprehensive metabolic profile showed elevated BUN and creatinine at 14 and 1.4 mg/dL. The bilirubin and liver enzymes were normal. The serum iron studies showed normal transferrin saturation at 47% with ferritin normal at 145 ng/mL. B12 is normal at 414 pg/mL and folate was normal at 7.5 ng/mL. Overall, the findings appeared most consistent with pancytopenia due to hypersplenism, but with the hydroxychloroquine and/or azathioprine also being potential contributing factors. In the absence of any evidence of a progressive process, I opted to follow her expectantly. Her medical illnesses include cutaneous lupus, autoimmune hepatitis with cirrhosis/splenomegaly, hypertension, chronic kidney disease, degenerative disease of the spine with spinal canal stenosis, fibromyalgia, chronic migraine, and anxiety/depression. Her surgeries include craniotomy for resection of acoustic neuroma in 2008. She has a history of smoking 1 pack of cigarettes daily, but only for 5 or 6 years. She quit smoking in 1993. INTERIM HISTORY: As of her follow-up visit in July 2021 her blood counts had remained stable. At that point she was having pain in her neck and back, and she also reported intermittent numbness in the lower extremities. She was referred to Dr. Danielle for her spinal stenosis. She continued expectant management for the pancytopenia. In October 2020 when she was admitted to the hospital with shortness of breath/hypoxia and acute renal injury. Ultimately this was felt to be due to right lower lobe pneumonia. Ventilation/perfusion scan at that time showed no evidence of pulmonary embolism. At some point subsequent to that hospitalization she apparently had tested positive for COVID. On 01/19/2022 she presented to the emergency room with shortness of breath. She had fallen at home and she had been lying on the floor for 12 hours when her family found her. Her CT pulmonary angiogram showed multiple bilateral pulmonary emboli with a moderate to large clot burden. There was evidence of associated right ventricular strain. There was focal pulmonary infarction/atelectasis in the right lower lobe. Her noncontrast head CT showed a new ill-defined hypodensity in the left basal ganglia extending to the merino radiata, appearance of which was suspicious for recent subacute ischemia. There was no evidence of hemorrhage. She was transferred to [facility] for admission. She underwent thrombectomy for the pulmonary embolism. Her further evaluation included CTA of the neck which showed occlusion of the left internal carotid artery. Her venous Doppler showed right lower extremity calf DVT. She began on anticoagulation with IV heparin. Her clinical course was complicated by atrial fibrillation. Her anticoagulation was subsequently transitioned to Lovenox/warfarin and she continued on warfarin at discharge to rehab on 01/25/2022. She was discharged home on 02/07/2022. She is seen for a follow-up visit. She still has very limited activity following the recent hospitalization. She has only minimal ambulation with a walker. Her ECOG score is 3. Her appetite had declined significantly with the illness, but it is starting to get better. She has not had fever. She has occasional episodes of sweating both during the daytime and at night. She has some sinus drainage. She does not complain of sore throat or difficulty swallowing. She has a little bit of cough. She still gets out of breath with activity. She has not been having chest pain. She has a little bit of nausea. She is not having acid reflux. Her bowel function has been okay. She has developed some bladder incontinence. She says she hurts all the time. She is not having headache. She has some orthostatic dysequilibrium. She still has weakness on the right side, and she has numbness in her right foot. Medications: Atorvastatin Calcium 1 Tablet (of 40 mg) Oral daily, Cyclobenzaprine HCl 1 Tablet (of 10 mg) Oral at bedtime, dilTIAZem HCl ER Coated Beads 1 Capsule (of 240 mg) Capsule SR 24 HR Oral daily, Escitalopram Oxalate 1 Tablet (of 20 mg) Oral daily, Gabapentin 1 Capsule (of 300 mg) Oral b.i.d., K-Tab 1 (10 meq) Tablet, controlled release Oral daily, Lasix 1 (40 mg) Tablet Oral every am, Metoprolol Succinate 1 Tablet (of 25 mg) Capsule ER 24 Hr Sprinkle Oral daily, Niva-Fol 1 Tablet (of 2.5-25-2 mg) Oral daily, Propranolol HCl 1 Tablet (of 10 mg) Oral b.i.d., Warfarin Sodium 1 Tablet (of 6 mg) Oral daily Allergies: Acyclovir, Meperidine HCl, and Penicillins. Vital Signs: Performed on Feb 13, 2022 15:41 Height - 66.00 in Weight - 287.2 lbs (LOW) BSA - 2.33 sq.m BMI - 46.36 (HIGH) Temperature - 99.1 F (HIGH) Pulse - 82 /min Respiration - 16 /min BP - 121/77 mm(hg) O2 Sat - 95 % (LOW) Pain - 0 Fatigue - 8 Physical Examination: Constitutional - She appears generally weak but not acutely ill, Eyes - Sclerae nonicteric. Conjunctivae clear, ENMT - No lesions noted in the oral cavity, Hematologic/Lymphatic - No cervical, clavicular, or axillary adenopathy, Respiratory - Lungs sound clear, Cardiovascular - Heart rhythm is regular. There is no murmur, gallop, or rub noted, Abdomen - Distended. Liver does not appear overtly enlarged. Spleen is not palpable. There is no abdominal mass or ascites noted and there is no inguinal adenopathy, Extremities - There is residual swelling of the right leg and foot. There is mild edema on the left. Dorsalis pedis pulses are palpable bilaterally, Neurologic - No focal neurologic deficits noted. Problem List: 1. Mild pancytopenia. 2. She has known liver cirrhosis, presumably due to autoimmune hepatitis. She has associated splenomegaly. 3. She has cutaneous lupus for which she has been on treatment with hydroxychloroquine. 4. Hypertension. 5. Chronic kidney disease. 6. Degenerative disease of the spine with cervical spinal stenosis. 7. Fibromyalgia. 8. Chronic migraine. 9. Anxiety/depression. 10. 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 Problems Addressed with this Encounter and Plan: 1. Patient with recent episode of major pulmonary embolism and right lower extremity deep vein thrombosis, possibly due to COVID-19 virus infection. She also had CT evidence of left basal ganglia CVA. She now remains on anticoagulation with warfarin. I will recheck her INR today and adjust her warfarin dosage accordingly. If her renal function is adequate I may may consider transitioning her to apixaban, as there appears to be no contraindication to use of a direct oral anticoagulant. 2. She has longstanding, mild pancytopenia. This appears to be most likely due to the underlying liver cirrhosis/hypersplenism, though some component could be due to hydroxychloroquine. Another concern has been the possibility of myelodysplastic syndrome, but that has seemed less likely. During follow-up her blood counts had basically remained stable, and she continued with expectant management. At this point I will repeat her blood counts and with her recent episode of thromboembolism, I also will now check a PNH screen. As long as her blood counts are adequate and stable, she will continue expectant management for the pancytopenia. 3. She would potentially benefit with home health, as she is at high risk for complications and she also will require frequent monitoring of her pro time/INR. Signed By: Jerel Marin M.D. <<Signature on File>>
[2022-02-16 11:46] LABS: Leukemia Profile (BBPL) See Report; Lymphoma Profile (BBPL) See Report
== END 2022-02-13 14:25 | disposition home or self-care (01) ==
PROVIDERS: PCP Family Medicine; Visit Provider Internal Medicine Medical Oncology
DX: D61.818 Other pancytopenia (principal); K74.60 Unspecified cirrhosis of liver; I10 Essential (primary) hypertension; N18.9 Chronic kidney disease, unspecified; M47.892 Other spondylosis, cervical region; M79.7 Fibromyalgia; F41.9 Anxiety disorder, unspecified; F32.A Depression, unspecified; Z79.899 Other long term (current) drug therapy
CPT/HCPCS: 36415; 80053; 81003; 82105; 83615; 84443; 85025; 85610; 88184; 88185; 99215

== ENCOUNTER 2022-03-02 14:32 | Outpatient (CLI) | payer MEDICARE, MEDICAID, SELFPAY ==
--- NOTE | 2022-03-02 14:44 | USCV_ITS ---
Verónica Pat Age: 61 Gender: F : 1960 Exam Date: 03/02/2022 15:01 Ordering Phys: Jerel Marin MD Technologist: Exam [place] [facility] [place]: swelling PROCEDURES: Venous duplex imaging was performed in bilateral lower extremities. The following venous structures were evaluated: common femoral vein, profunda vein, proximal portion of the greater saphenous vein, superficial femoral vein, and the popliteal vein. In addition, the posterior tibial and peroneal trunk were evaluated. Serial compression, augmentation maneuvers, and spectral Doppler flow evaluation were performed. FINDINGS: No evidence of DVT seen in any vessel visualized at this time. CONCLUSIONS No evidence of right lower extremity DVT. No evidence of left lower extremity DVT. Venkata Verdin MD (Electronically Signed) Final Date: 03 March 2022 08:24 S
== END 2022-03-02 14:33 | disposition home or self-care (01) ==
LOC: RAD 14:37
PROVIDERS: PCP Family Medicine; Visit Provider Internal Medicine Medical Oncology
DX: M79.89 Other specified soft tissue disorders (principal)
CPT/HCPCS: 93970

== ENCOUNTER 2022-03-13 15:47 | Outpatient (CLI) | payer MEDICARE, MEDICAID, SELFPAY ==
--- NOTE | 2022-03-13 16:00 | MR_ITS ---
WS: [id number] MRI CERVICAL SPINE NONCONTRAST HISTORY: Cervicalgia COMPARISON: 11/14/2019 Technique: Multiplanar, multisequence noncontrast imaging of the cervical spine. Marked straightening of the normal cervical lordosis. Slightly progressed since the prior examination . Mild diffuse disc space narrowing and desiccation. Hypertrophic osteophytes throughout the cervical spine encroaching upon the cervical cord. Most significant at C5-6. Signal within the cervical cord is normal. Visualized posterior fossa is unremarkable. Craniocervical junction, C1 and C2 relationship, odontoid process and soft tissues are normal. C2-C3: Mild LEFT facet joint arthritis. No stenosis. C3-C4: Mild diffuse annular disc bulging and osteophytic ridging. Mild encroachment upon the neural f oramina. Mild bilateral foraminal stenosis. C4-C5: Mild osteophytic ridging and disc bulging and facet joint arthritis. Mild bilateral foraminal narrowing. C5-C6: Diffuse annular disc bulging with osteophytic ridging and facet joint arthritis. Disc osteophy te encroachment into the foramina bilaterally. Moderate central and bilateral foraminal stenosis. C6-C7: Diffuse annular disc bulging and osteophytic ridging. Very mild encroachment upon the ventral thecal sac. Mild bilateral facet joint arthritis and foraminal stenosis due to osteophyte disease. C7-T1: No stenosis. Paraspinal soft tissue are normal. MR/MR cervical spin wo con* [id number] IMPRESSION: 1. Mild progression of degenerative spondylitic changes throughout the cervica l spine since 11/14/2019. 2. Moderate central and bilateral foraminal stenosis at C5-6. Stenosis due to combination of facet, hypertrophic osteophytes and disc disease. 3. Mild bilateral foraminal stenosis at C3-4 and C4-5 and C6-7 due to disc and osteophyte disease.
== END 2022-03-13 15:48 | disposition home or self-care (01) ==
LOC: RAD 15:50
PROVIDERS: PCP Family Medicine; Visit Provider Orthopaedic Surgery
DX: M47.892 Other spondylosis, cervical region (principal); M48.02 Spinal stenosis, cervical region; M54.2 Cervicalgia
CPT/HCPCS: 72141

== ENCOUNTER → 2022-03-17 09:18 | Outpatient (BNVA) | payer MEDICARE, MEDICAID, SELFPAY | PROVIDERS: PCP Family Medicine; Visit Provider Internal Medicine Critical Care Medicine | DX: J98.4 Other disorders of lung (principal); I26.09 Other pulmonary embolism with acute cor pulmonale; K75.4 Autoimmune hepatitis; Z87.891 Personal history of nicotine dependence; I10 Essential (primary) hypertension | CPT/HCPCS: 99214 ==

== ENCOUNTER → 2022-03-30 15:35 | Outpatient (BNVA) | payer MEDICARE, MEDICAID, SELFPAY | PROVIDERS: PCP Family Medicine; Visit Provider Orthopaedic Surgery | DX: M48.02 Spinal stenosis, cervical region (principal); M54.42 Lumbago with sciatica, left side | CPT/HCPCS: 99213; 99214 ==

== ENCOUNTER 2022-03-31 10:19 | Oncology outpatient (recurring) (ONCR) | payer MEDICARE, MEDICAID, SELFPAY ==
[2022-03-31 11:33] LABS: Hematocrit 31.7 % (37.0-47.0); Lymphocytes # 0.5 10^3/uL (0.8-4.8); Lymphocytes % 21.1 %; Mean Corpuscular HGB Conc 31.5 g/dL (30.0-36.0); Mean Corpuscular Hemoglobin 29.6 pg (28.0-34.0); Mean Corpuscular Volume 93.8 fl (81-99); Monocytes # 0.2 10^3/uL (0.2-0.9); Monocytes % 10.8 %; Neutrophils # 1.52 10^3/uL (1.8-7.7); Neutrophils % 68.1 %; Nucleated Red Blood Cells % 0 %; Platelet Count 91 10^3/cmm (130-400); Red Blood Count 3.38 10^6/uL (4.1-5.3); Red Cell Distribution Width 14.7 % (12.1-15.1); White Blood Count 2.2 10^3/uL (4.0-10.0)
[2022-03-31 11:58] LABS: Alanine Aminotransferase 29 U/L (0-33); Albumin Level 3.6 g/dL (3.5-5.2); Alkaline Phosphatase 87 IU/L (35-105); Anion Gap 13.9 (5-19); Aspartate Amino Transferase 35 U/L (0-32); Blood Urea Nitrogen 10 mg/dL (8-23); Calcium 9.6 mg/dL (8.5-10.5); Carbon Dioxide 27 mmol/L (22-29); Chloride 99 mmol/L (98-107); Globulin 3.3 g/dL (1.3-4.6); Glomerular Filtration Rate 50.3 mL/min (90-130); Glucose 117 mg/dL (65-115); Iron 47 ug/dL (37-145); Lactate Dehydrogenase 155 U/L (135-214); Osmolality Calculated 282 mOsm/kg (285-295); Percent Saturation 12.6 % (20-50); Potassium 3.9 mmol/L (3.5-5.1); Sodium 136 mmol/L (136-145); Total Bilirubin 0.6 mg/dL (0.15-1.2); Total Iron Binding Capacity 372 mcg/dl; Total Protein 6.9 g/dL (6.6-8.7); Unsaturated Iron Binding 325 ug/dL (112-347)
[2022-03-31 12:12] LABS: Vitamin B12 1611 pg/mL (232-1245)
== END 2022-04-25 23:59 | disposition home or self-care (01) ==
PROVIDERS: PCP Family Medicine; Visit Provider Nurse Practitioner Family
DX: D61.818 Other pancytopenia (principal); K74.60 Unspecified cirrhosis of liver; I74.9 Embolism and thrombosis of unspecified artery
CPT/HCPCS: 36415; 80053; 82607; 83540; 83550; 83615; 85025; 99214; 99999

== ENCOUNTER → 2022-04-03 14:58 | Outpatient (BNVA) | payer MEDICARE, MEDICAID, SELFPAY | PROVIDERS: PCP Family Medicine; Visit Provider Specialist | DX: G43.709 Chronic migraine without aura, not intractable, without status migrainosus (principal); M32.9 Systemic lupus erythematosus, unspecified; I48.91 Unspecified atrial fibrillation; M48.02 Spinal stenosis, cervical region; G99.2 Myelopathy in diseases classified elsewhere; K75.4 Autoimmune hepatitis; E66.01 Morbid (severe) obesity due to excess calories; Z68.42 Body mass index [BMI] 45.0-49.9, adult; K74.60 Unspecified cirrhosis of liver; Z86.73 Personal history of transient ischemic attack (TIA), and cerebral infarction without residual deficits; Z87.891 Personal history of nicotine dependence | CPT/HCPCS: 99214; 99215 ==

== ENCOUNTER → 2022-04-10 14:08 | Outpatient (BNVA) | payer MEDICARE, MEDICAID, SELFPAY | PROVIDERS: PCP Family Medicine; Visit Provider Internal Medicine | DX: I48.91 Unspecified atrial fibrillation (principal); I10 Essential (primary) hypertension; Z86.73 Personal history of transient ischemic attack (TIA), and cerebral infarction without residual deficits; Z87.891 Personal history of nicotine dependence | CPT/HCPCS: 99204 ==

== ENCOUNTER → 2022-04-12 14:43 | Outpatient (BNVA) | payer MEDICAID, SELFPAY | PROVIDERS: PCP Family Medicine; Visit Provider Internal Medicine Rheumatology | DX: L93.1 Subacute cutaneous lupus erythematosus (principal); R76.8 Other specified abnormal immunological findings in serum; Z79.899 Other long term (current) drug therapy; M54.41 Lumbago with sciatica, right side; N18.9 Chronic kidney disease, unspecified; D75.9 Disease of blood and blood-forming organs, unspecified; D72.819 Decreased white blood cell count, unspecified; D69.6 Thrombocytopenia, unspecified; Z71.89 Other specified counseling | CPT/HCPCS: 99214 ==

== ENCOUNTER 2022-05-11 13:52 | Outpatient (CLI) | payer MEDICARE, MEDICAID, SELFPAY | END 2022-05-11 13:53 | disposition home or self-care (01) | LOC: RAD 13:55 | PROVIDERS: PCP Family Medicine; Visit Provider Internal Medicine | DX: I69.351 Hemiplegia and hemiparesis following cerebral infarction affecting right dominant side (principal); I65.22 Occlusion and stenosis of left carotid artery; I48.91 Unspecified atrial fibrillation; G43.711 Chronic migraine without aura, intractable, with status migrainosus; E66.3 Overweight; Z68.41 Body mass index [BMI] 40.0-44.9, adult; Z86.711 Personal history of pulmonary embolism; Z79.01 Long term (current) use of anticoagulants | CPT/HCPCS: 99215 ==

== ENCOUNTER → 2022-05-23 12:58 | Outpatient (BNVA) | payer MEDICARE, MEDICAID, SELFPAY | PROVIDERS: PCP Family Medicine; Visit Provider Orthopaedic Surgery | DX: M17.0 Bilateral primary osteoarthritis of knee (principal) | CPT/HCPCS: 20610 ==

== ENCOUNTER 2022-05-31 10:21 | Oncology outpatient (recurring) (ONCR) | payer MEDICARE, MEDICAID, SELFPAY ==
[2022-05-31 10:47] LABS: Basophils % 0.7 %; Eosinophils # 0.1 10^3/uL (0.0-0.8); Eosinophils % 0.9 %; Hematocrit 37.1 % (37.0-47.0); Hemoglobin 12.1 g/dL (11.5-15.3); Lymphocytes # 0.8 10^3/uL (0.8-4.8); Lymphocytes % 14.6 %; Mean Corpuscular HGB Conc 32.6 g/dL (30.0-36.0); Mean Corpuscular Hemoglobin 28.3 pg (28.0-34.0); Mean Corpuscular Volume 86.9 fl (81-99); Mean Platelet Volume 13.6 fL (7.4-10.4); Monocytes # 0.5 10^3/uL (0.2-0.9); Monocytes % 8.5 %; Neutrophils # 4.04 10^3/uL (1.8-7.7); Neutrophils % 74.9 %; Nucleated Red Blood Cells % 0 %; Platelet Count 156 10^3/cmm (130-400); Red Blood Count 4.27 10^6/uL (4.1-5.3); Red Cell Distribution Width 15.5 % (12.1-15.1); White Blood Count 5.4 10^3/uL (4.0-10.0)
[2022-05-31 10:55] LABS: Alanine Aminotransferase 33 U/L (0-33); Albumin Level 3.9 g/dL (3.5-5.2); Alkaline Phosphatase 85 IU/L (35-105); Anion Gap 16.3 (5-19); Aspartate Amino Transferase 31 U/L (0-32); Blood Urea Nitrogen 11 mg/dL (8-23); Calcium 9.3 mg/dL (8.5-10.5); Carbon Dioxide 25 mmol/L (22-29); Chloride 97 mmol/L (98-107); Globulin 3.5 g/dL (1.3-4.6); Glomerular Filtration Rate 45.5 mL/min (90-130); Glucose 127 mg/dL (65-115); Lactate Dehydrogenase 151 U/L (135-214); Osmolality Calculated 279 mOsm/kg (285-295); Potassium 4.3 mmol/L (3.5-5.1); Sodium 134 mmol/L (136-145); Total Bilirubin 0.7 mg/dL (0.15-1.2); Total Protein 7.4 g/dL (6.6-8.7)
[2022-05-31 11:09] LABS: Iron 51 ug/dL (37-145); Percent Saturation 14.7 % (20-50); Total Iron Binding Capacity 346 mcg/dl; Unsaturated Iron Binding 295 ug/dL (112-347)
[2022-05-31 11:36] LABS: Slide Review Slide Review Perform
== END 2022-06-25 23:59 | disposition home or self-care (01) ==
LOC: ONCMED 10:22
PROVIDERS: PCP Family Medicine; Visit Provider Nurse Practitioner Family
DX: I26.09 Other pulmonary embolism with acute cor pulmonale (principal); I82.401 Acute embolism and thrombosis of unspecified deep veins of right lower extremity; Z79.01 Long term (current) use of anticoagulants; Z86.16 Personal history of COVID-19; D61.818 Other pancytopenia; K74.60 Unspecified cirrhosis of liver; R16.1 Splenomegaly, not elsewhere classified
CPT/HCPCS: 36415; 80053; 83540; 83550; 83615; 85025; 99214

== ENCOUNTER 2022-06-21 15:44 | Outpatient (CLI) | payer MEDICARE, MEDICAID, SELFPAY ==
--- NOTE | 2022-06-21 15:51 | MR_ITS ---
WS: [id number] MRI HEAD WITH CONTRAST WITH ATTENTION TO THE INTERNAL AUDITORY CANALS TECHNIQUE: Sagittal T1, T2 axial, T2 axial flair, axial susceptibility weighted imaging, axial diffus ion weighted images, and coronal T2 images were obtained. Pre and post T1 axial and post T1 coronal i mages. ADC and FSPGR images. Post gadolinium images with attention to the internal auditory canals. A xial fiesta imaging. CLINICAL INFORMATION: BENIGN NEOPLASM OF CRANIAL NERVES COMPARISON: MRI [address] January 19, 2022. Multiple MRIs dating back to 2008. FINDINGS: Loss of the normal ICA flow void with occlusion of the LEFT intracranial ICA appears new fr om 2018. This can be further evaluated with CTA. Evidence of chronic ischemia in the LEFT merino radi gerda and basal ganglia with encephalomalacia and hemosiderin. No evidence of restricted diffusion to suggest acute ischemia. Ventricular system and basal cisterns are patent. Mild small vessel changes. No significant parenchymal volume loss. Normal posterior fossa . No extra-axial fluid collections. No evidence of mass or mass effect. Paranasal sinuses and mastoid air cells are well aerated. Normal optic chiasm and pituitary infundibulum. Prior postoperative changes resection of the LEFT aco ustic schwannoma with LEFT retromastoid craniotomy with mesh placement. Postoperative changes involvi ng the LEFT porous acousticus. No evidence of recurrent IAC or CP angle mass. Normal trigeminal nerve root entry zones. No abnormal intracranial enhancement. Laminar necrosis in the LEFT merino radiata and basal ganglia in the area of prior infarct. Normal visualized dural venous sinuses. MR/MR iac's wo/w con* [id number] IMPRESSION: 1. Prior postoperative changes LEFT retromastoid craniotomy with resection of the LEFT acoustic schwannoma. No evidence of residual or recurrent disease. 2. Stable postoperative changes along the LEFT porous acousticus 3. Loss of the normal ICA flow void consistent with intracranial occlusion. Th is appears new since 2018 and could be further evaluated with CTA. 4. Chronic appearing infarct involving the LEFT merino radiata and basal gangl ia with encephalomalacia and gliosis. Small amount of associated hemosiderin an d laminar necrosis. 5. No other changes compared to previous.
== END 2022-06-21 15:45 | disposition home or self-care (01) ==
LOC: RAD 15:45
PROVIDERS: PCP Family Medicine; Visit Provider Specialist
DX: D33.3 Benign neoplasm of cranial nerves (principal); I63.89 Other cerebral infarction; G93.89 Other specified disorders of brain
CPT/HCPCS: 70553; A9577

== ENCOUNTER → 2022-06-29 14:24 | Outpatient (BNVA) | payer MEDICARE, MEDICAID, SELFPAY | PROVIDERS: PCP Family Medicine; Visit Provider Specialist | DX: Z86.73 Personal history of transient ischemic attack (TIA), and cerebral infarction without residual deficits (principal); Z86.16 Personal history of COVID-19; Z86.711 Personal history of pulmonary embolism; Z87.891 Personal history of nicotine dependence; Z79.01 Long term (current) use of anticoagulants; G43.711 Chronic migraine without aura, intractable, with status migrainosus | CPT/HCPCS: 64615; 99213; J0585 ==

== ENCOUNTER → 2022-07-11 14:50 | Outpatient (BNVA) | payer MEDICARE, MEDICAID, SELFPAY | PROVIDERS: PCP Family Medicine; Visit Provider Internal Medicine | DX: I48.91 Unspecified atrial fibrillation (principal); Z79.01 Long term (current) use of anticoagulants; Z86.73 Personal history of transient ischemic attack (TIA), and cerebral infarction without residual deficits; I12.9 Hypertensive chronic kidney disease with stage 1 through stage 4 chronic kidney disease, or unspecified chronic kidney disease; N18.9 Chronic kidney disease, unspecified; Z87.891 Personal history of nicotine dependence | CPT/HCPCS: 99213; 99214 ==

== ENCOUNTER → 2022-07-19 14:47 | Outpatient (BNVA) | payer MEDICARE, MEDICAID, SELFPAY | PROVIDERS: PCP Family Medicine; Visit Provider Internal Medicine Rheumatology | DX: L93.1 Subacute cutaneous lupus erythematosus (principal); Z79.899 Other long term (current) drug therapy; Z71.89 Other specified counseling; R76.8 Other specified abnormal immunological findings in serum; D75.9 Disease of blood and blood-forming organs, unspecified; D72.819 Decreased white blood cell count, unspecified; D69.6 Thrombocytopenia, unspecified; M54.41 Lumbago with sciatica, right side; K74.60 Unspecified cirrhosis of liver; I85.10 Secondary esophageal varices without bleeding | CPT/HCPCS: 99214 ==

== ENCOUNTER 2022-08-09 15:46 | Outpatient (CLI) | payer MEDICARE, MEDICAID, SELFPAY ==
--- NOTE | 2022-08-09 16:00 | USCV_ITS ---
Verónica Pat Age: 61 Gender: F : 1960 Exam Date: 08/09/2022 16:36 Ordering Phys: Thuy Rangel MD Technologist: Vincent Massey Exam Location: [facility] – [place] Indication: CEREBRAL INFARCT Risk Factors: Previous Vascular Surgery: Right Brachial BP: / Left Brachial BP: / Right Left Velocity (cm/s) Spectral Plaque Velocity (cm/s) Spectral Plaque Syst/Diast Broadening Syst/Diast Broadening 133.10/31.30 Prox CCA 112.80/ 11.10 108.50/30.20 Mid CCA 74.60 / 8.50 88.30/ 17.90 Distal CCA 55.20 / 10.10 98.40/ 22.40 Prox ICA 40.60 / 5.30 90.60/ 26.80 Mid ICA / 108.80/35.00 Distal ICA / 85.00 ECA 71.60 0.84 ICA/CCA 0.54 Antegrade Vertebral Antegrade 50.50/ 13.20 cm/s 74.60/ 24.90 cm/s Tri Subclavian Tri 76.90 123.6 0 CONCLUSIONS Right ICA stenosis <50%. Mild atheromatous plaque right carotid bulb/ICA. Left ICA is occluded. Left CCA is patent. Normal antegrade Doppler flow noted in the right vertebral artery. Normal antegrade Doppler flow noted in the left vertebral artery. Venkata Verdin MD (Electronically Signed) Final Date: 11 August 2022 17:09 S
== END 2022-08-09 15:47 | disposition home or self-care (01) ==
PROVIDERS: PCP Family Medicine; Visit Provider Specialist
DX: I63.9 Cerebral infarction, unspecified (principal); I65.21 Occlusion and stenosis of right carotid artery
CPT/HCPCS: 93880

== ENCOUNTER 2022-08-18 12:23 | Outpatient (CLI) | payer MEDICARE, MEDICAID, SELFPAY ==
--- NOTE | 2022-08-18 12:39 | XR_ITS ---
WS: [id number] Right wrist, 2 views, 08/18/2022 Clinical Data: FALLS/MASS OF R WRIST JOINT Comparison: None. Findings: No fractures or dislocations are seen. The carpal bones are intact. There is no soft tissue swelling. The distal radius and ulna are not remarkable. XR/XR wrist RT 2V [id number] Impression: Negative right wrist.
== END 2022-08-18 12:24 | disposition home or self-care (01) ==
LOC: RAD 12:32
PROVIDERS: PCP Family Medicine; Visit Provider Family Medicine
DX: M25.831 Other specified joint disorders, right wrist (principal)
CPT/HCPCS: 73100

== ENCOUNTER → 2022-08-22 12:52 | Outpatient (BNVA) | payer MEDICARE, MEDICAID, SELFPAY | PROVIDERS: PCP Family Medicine; Visit Provider Nurse Practitioner Family | DX: M17.0 Bilateral primary osteoarthritis of knee (principal) | CPT/HCPCS: 20610; 99213; 99214; J0702; J3490 ==

== ENCOUNTER 2022-08-29 13:04 | Outpatient (CLI) | payer MEDICARE, MEDICAID, SELFPAY ==
[2022-08-29 14:36] LABS: Anion Gap 13.1 (5-19); Blood Urea Nitrogen 15 mg/dL (8-23); Calcium 9.7 mg/dL (8.5-10.5); Carbon Dioxide 29 mmol/L (22-29); Chloride 99 mmol/L (98-107); Glomerular Filtration Rate 41.5 mL/min (90-130); Glucose 119 mg/dL (65-115); Osmolality Calculated 286 mOsm/kg (285-295); Potassium 4.1 mmol/L (3.5-5.1); Sodium 137 mmol/L (136-145)
[2022-08-29 14:41] LABS: Tumor Marker Alpha Fetoprotein 6.1 ng/mL (0-8.3)
== END 2022-08-29 13:05 | disposition home or self-care (01) ==
LOC: LAB 13:04
PROVIDERS: PCP Family Medicine; Visit Provider Family Medicine
DX: K74.69 Other cirrhosis of liver (principal)
CPT/HCPCS: 80048; 82105

== ENCOUNTER → 2022-09-05 12:59 | Outpatient (BNVA) | payer MEDICARE, MEDICAID, SELFPAY | PROVIDERS: PCP Family Medicine; Visit Provider Orthopaedic Surgery | DX: M54.42 Lumbago with sciatica, left side (principal); M47.22 Other spondylosis with radiculopathy, cervical region | CPT/HCPCS: 99213; 99214 ==

== ENCOUNTER → 2022-09-14 10:41 | Outpatient (BNVA) | payer MEDICARE, MEDICAID, SELFPAY | PROVIDERS: PCP Family Medicine; Visit Provider Internal Medicine Pulmonary Disease | DX: J98.4 Other disorders of lung (principal); R06.02 Shortness of breath; G47.30 Sleep apnea, unspecified; Z79.899 Other long term (current) drug therapy; K74.69 Other cirrhosis of liver; K75.4 Autoimmune hepatitis; Z86.711 Personal history of pulmonary embolism; Z87.891 Personal history of nicotine dependence; Z79.01 Long term (current) use of anticoagulants | CPT/HCPCS: 99214 ==

== ENCOUNTER → 2022-09-28 13:39 | Outpatient (BNVA) | payer MEDICARE, MEDICAID, SELFPAY | PROVIDERS: PCP Family Medicine; Visit Provider Specialist | DX: I65.22 Occlusion and stenosis of left carotid artery (principal); G43.711 Chronic migraine without aura, intractable, with status migrainosus; I48.91 Unspecified atrial fibrillation; Z86.73 Personal history of transient ischemic attack (TIA), and cerebral infarction without residual deficits; Z86.711 Personal history of pulmonary embolism; Z79.01 Long term (current) use of anticoagulants; Z87.891 Personal history of nicotine dependence | CPT/HCPCS: 99214 ==

== ENCOUNTER → 2022-10-02 10:01 | Outpatient (BNVA) | payer MEDICARE, MEDICAID, SELFPAY | PROVIDERS: PCP Family Medicine; Visit Provider Anesthesiology Pain Medicine | DX: M47.22 Other spondylosis with radiculopathy, cervical region (principal); M47.812 Spondylosis without myelopathy or radiculopathy, cervical region; M17.0 Bilateral primary osteoarthritis of knee; I65.22 Occlusion and stenosis of left carotid artery; M79.601 Pain in right arm; M79.602 Pain in left arm | CPT/HCPCS: 99204 ==

== ENCOUNTER 2022-10-13 10:57 | Outpatient (CLI) | payer MEDICARE, MEDICAID, SELFPAY ==
--- NOTE | 2022-10-13 11:11 | USR_ITS ---
PROCEDURE INFORMATION: Exam: US Abdomen Complete Exam date and time: 10/13/2022 11:31 AM Age: 61 years old Clinical indication: Screening exam; Additional info: Hcc surveillance/liver cell carcinoma TECHNIQUE: Imaging protocol: Real-time ultrasound of the abdomen with image documentation. Complete exam. COMPARISON: US abdomen complete* [id number] 09/15/2019 8:37 AM FINDINGS: Liver: The liver is hyperechoic and inhomogenous measuring 14.8 cm. Gallbladder: The gallbladder is surgically absent. Biliary ducts: Normal. No stones. No dilation. Pancreas: Visualized pancreas is unremarkable. Right kidney: Normal. No mass. No hydronephrosis. Left kidney: Normal. No mass. No hydronephrosis. Spleen: The spleen is enlarged measuring 16.0 cm. Intraperitoneal space: No ascites. Aorta: Normal. No aneurysm. Inferior vena cava: Normal. Portal venous: Hepatopetal flow in the main portal vein. US/US abdomen complete* [id number] IMPRESSION: 1. Inhomogenous liver, consistent with fatty infiltration and/or parenchymal disease. No discrete nodule or mass visualized. 2. Absent gallbladder. 3. Splenomegaly.
== END 2022-10-13 10:58 | disposition home or self-care (01) ==
LOC: RAD 10:58
PROVIDERS: PCP Family Medicine; Visit Provider Internal Medicine
DX: C22.0 Liver cell carcinoma (principal); R16.1 Splenomegaly, not elsewhere classified
CPT/HCPCS: 76700

== ENCOUNTER 2022-10-16 12:43 | Outpatient (CLI) | payer MEDICARE, MEDICAID, SELFPAY ==
--- NOTE | 2022-10-16 12:56 | MR_ITS ---
WS: [id number] INDICATION: Multiple masses RIGHT wrist TECHNIQUE: MRI of the RIGHT wrist without gadolinium enhancement. Coronal T1, PD, STIR coronal 3-D FS PGR, sagittal T1, axial T2, axial T1 postgadolinium imaging was obtained. FINDINGS: Some images degraded by motion. In the area of concern, along the dorsal wrist, there is a diffuse T2 hyperintense enhancing subcutan eous process involving the subcutaneous soft tissues extending from the distal radial shaft to the pr oximal metatarsals. This measures approximately 7.3 mm in short axis dimension and involves the exten sor compartment tendons. This extends over approximately 6.1 cm. Primary differential consideration i s superficial fibromatosis. Additional considerations, although less likely, include fibrosarcoma, sy novial sarcoma, and superficial nodular fasciitis. Consider soft tissue biopsy and correlation with c linical history. Mild degenerative narrowing at the radiocarpal joint. Scaphoid and lunate are not normal in appearanc e. Moderate degenerative arthritis at the 1st CMC and STT. Normal scapholunate interval. No evidence of avascular necrosis. Subchondral cystic changes involving the carpal bones. Normal bone marrow sign al in the distal radius and ulna. No acute fractures. Normal carpal tunnel. Small amount of edema along the TFCC and ulnar aspect of the radius laterally. MR/MR hand RT wo/w con [id number] IMPRESSION: 1. In the area of concern, along the dorsal wrist, there is a T2 hyperintense slightly enhancing subcutaneous process involving the subcutaneous soft tissues extending from the distal radial shaft to the proximal metatarsals. 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 Additional considerations, although le ss likely, include fibrosarcoma, synovial sarcoma, and superficial nodular fasc iitis. Consider soft tissue biopsy and correlation with clinical history. 2. No evidence of bony erosion on the prior radiograph. 3. No other acute findings.
[2022-10-16] MEDS: gadobenate dimeglumine 20 mL vial IV (14:00)
== END 2022-10-16 12:44 | disposition home or self-care (01) ==
LOC: RAD 12:44
PROVIDERS: PCP Family Medicine; Visit Provider Family Medicine
DX: M25.831 Other specified joint disorders, right wrist (principal); R22.31 Localized swelling, mass and lump, right upper limb
CPT/HCPCS: 73220; A9577

== ENCOUNTER → 2022-10-30 14:14 | Outpatient (BNVA) | payer MEDICARE, MEDICAID, SELFPAY | PROVIDERS: PCP Family Medicine; Visit Provider Anesthesiology Pain Medicine | DX: M47.816 Spondylosis without myelopathy or radiculopathy, lumbar region (principal); M54.16 Radiculopathy, lumbar region; M54.2 Cervicalgia | CPT/HCPCS: 62323; 64490; 64491; 64492; J3490 ==

== ENCOUNTER 2022-11-09 12:57 | Outpatient (CLI) | payer MEDICARE, MEDICAID, SELFPAY ==
--- NOTE | 2022-11-09 13:23 | MM_ITS ---
WS: [id number] BILATERAL 3D TOMOSYNTHESIS DIGITAL SCREENING MAMMOGRAPHY WITH CAD CLINICAL INFORMATION: SCREENING HISTORY: Screening mammogram. LEFT breast lump COMPARISON: TECHNIQUE: Bilateral CC and MLO views. FINDINGS: Scattered fibroglandular densities bilaterally. Recommend LEFT breast diagnostic mammography with pal pable marker in the area of reported lump. In addition this should be followed with ultrasound. Vascular calcification. A few incidental punctate calcifications. RIGHT breast is unremarkable. MM/[place] [id number] IMPRESSION: BI-RADS: 0-Incomplete: Need additional imaging evaluation FOLLOW UP: Need Additional Imaging Recommend LEFT breast diagnostic mammography with palpable marker in the area o f reported areola lump. In addition this should be followed with ultrasound.
== END 2022-11-09 12:58 | disposition home or self-care (01) ==
PROVIDERS: PCP Family Medicine; Visit Provider Family Medicine
DX: Z12.31 Encounter for screening mammogram for malignant neoplasm of breast (principal)
CPT/HCPCS: 77063; 77067

== ENCOUNTER → 2022-11-15 10:11 | Outpatient (BNVA) | payer MEDICARE, MEDICAID, SELFPAY | PROVIDERS: PCP Family Medicine; Visit Provider Anesthesiology Pain Medicine | DX: M47.22 Other spondylosis with radiculopathy, cervical region (principal); M47.812 Spondylosis without myelopathy or radiculopathy, cervical region; M79.601 Pain in right arm; M79.602 Pain in left arm; M17.0 Bilateral primary osteoarthritis of knee; I65.22 Occlusion and stenosis of left carotid artery | CPT/HCPCS: 99214 ==

== ENCOUNTER 2022-11-23 15:27 | Outpatient (CLI) | payer MEDICARE, MEDICAID, SELFPAY ==
--- NOTE | 2022-11-23 | XR_ITS ---
WS: [id number] Chest 2 views, 11/23/2022 Clinical Data: COUGH Comparison: Portable chest, 01/19/2022 Findings: There is minimal patchy opacity in the right lower lobe which could represent atelectasis a nd/or minimal pneumonia. The remainder of the lungs is clear. No nodules, masses or effusions are se en. The heart is normal. The pulmonary vascularity is not increased. No pneumothorax is seen. XR/XR chest 2V* [id number] Impression: Minimal patchy right lower lobe opacity which could represent atelectasis and/o r pneumonia.
== END 2022-11-23 15:28 | disposition home or self-care (01) ==
LOC: RAD 15:31
PROVIDERS: PCP Family Medicine; Visit Provider Family Medicine
DX: R05.9 Cough, unspecified (principal)
CPT/HCPCS: 71046

== ENCOUNTER 2022-11-27 20:28 | Emergency (ER) | payer MEDICARE, MEDICAID, SELFPAY ==
[2022-11-27 20:48] VITALS: BP 108/68; PULSE 62; RESP 16; TEMP 36.7; O2SAT 96; BMI 38.5
--- NOTE | 2022-11-27 20:58 | XRR_ITS ---
PROCEDURE INFORMATION: Exam: XR Chest Exam date and time: 11/27/2022 9:13 PM Age: 61 years old Clinical indication: Cough and shortness of breath; Additional info: SOB, cough, TECHNIQUE: Imaging protocol: Radiologic exam of the chest. Views: 1 view. COMPARISON: CR XR chest 2V* [id number] 11/23/2022 3:49 PM FINDINGS: Lungs: Unremarkable. No consolidation. Pleural spaces: Unremarkable. No pleural effusion. No pneumothorax. Heart/Mediastinum: Unremarkable. No cardiomegaly. Bones/joints: Unremarkable. XR/XR chest 1V portable [id number] IMPRESSION: No acute findings.
--- NOTE | 2022-11-27 21:23 | ECG_ITS ---
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 Measurements Intervals [place] Rate: 61 P: -7 IN: 138 QRS: 28 QRSD: 89 T: 47 QT: 440 QTc: 446 Interpretive Statements SINUS RHYTHM WITH SINUS ARRHYTHMIA LOW QRS VOLTAGE IN PRECORDIAL LEADS [QRS DEFLECTION < 1.0 mV IN CHEST LEADS] Compared to ECG 01/19/2022 19:36:42 Sinus tachycardia no longer present T-wave abnormality no longer present Possible ischemia no longer present Electronically Signed On 11-28-2022 9:28:37 [employer]ROAD CAR [employer] by Hector Young M.D. [id number]
--- NOTE | 2022-11-27 21:24 | W.ED.SOB ---
HPI - SOB/Dyspnea General: Chief Complaint: Shortness of Breath/Dyspnea Stated Complaint: SOB,cough Time Seen by Provider: 11/27/22 20:59 Source: patient Mode of arrival: ambulatory Limitations: no limitations History of Present Illness: HPI Narrative: 61-year-old female who states she was diagnosed with a pneumonia on states she been having cough congestion since she is currently on antibiotics cough is worsened she is in no distress here no fever patient's had no vomiting or diarrhea. She does have a history of COPD. Associated symptoms: Deny abdominal pain, chest pain, fever(s), nausea or vomiting Review of Systems Const: Denies: fever(s), chills, body aches or change in appetite Eyes: Denies: blurry vision or eye discomfort ENMT: Denies: throat pain or dental pain Card: Denies: chest pain Resp: Reports: dyspnea and wheezing GI: Denies: abdominal pain, nausea, vomiting or diarrhea : Denies: dysuria Musc: Denies: neck pain or back pain Skin/Breast: Denies: rash Neuro: Denies: headache(s) Psych: Denies: depression Vidal/Lymph: Denies: easy bruising All/Imm: Denies: urticaria PFSH ED PFSH: Medical History Anxiety Autoimmune hepatitis Chronic migraine Cirrhosis of liver CKD (chronic kidney disease) Cutaneous lupus erythematosus Degenerative joint disease of cervical spine Fibromyalgia Hypertension Left carotid artery occlusion SLE (systemic lupus erythematosus) Stenosis of cervical spine with myelopathy Vitamin D deficiency Surgical History H/O brain surgery (2008) Occipital craniotomy for resection of acoustic neuroma History of cholecystectomy History of cranial reconstruction (2009) History of surgery on arm (2010) Open reduction for left arm fracture History of tubal ligation History of vascular surgery (12/2021) Thrombectomy for pulmonary embolism Family History Mother Cancer Breast cancer Brother Chronic kidney disease (CKD) Other CAD (coronary artery disease) Clotting disorder Hyperlipidemia Hypertension Stroke Denies family history of Rheumatoid arthritis Diabetes Lupus Dementia Psychiatric illness Suicide Anesthesia complication Bleeding disorder Lung disease Social History Smoking and tobacco status: former smoker Quit status (tobacco): has quit using tobacco Year quit tobacco: 1993 Former quit date comment: Hx of 1 PPD x 15 Years Second hand smoke exposure: No Smoking risk assessment/counseling performed?: No Alcohol intake: never Counseling given: No Counseling given: No Lives independently: Yes Household members: none Marital status: Current occupational status: unemployed History of recent travel: No Current gender identity: Female Physical Exam Const: COMMON NORMALS: no acute distress, patient oriented x3 and healthy appearing HENMT: COMMON NORMALS: normocephalic and atraumatic HEAD & SCALP: normocephalic and atraumatic Eye: COMMON NORMALS: Equal, round and reactive pupils present and EOMs intact bilaterally PUPIL: Yes Equal, round and reactive pupils present Neck/C-Spine: COMMON NORMALS: full ROM and supple Chest: COMMONS NORMALS: normal inspection of the chest and normal palpation of entire chest wall Resp: COMMON NORMALS: normal respiratory effort, No retractions, No use of accessory muscles and clear to auscultation bilaterally AUSCULTATION: clear to auscultation bilaterally Cardio: COMMON NORMALS: regular rate, regular rhythm and No murmurs present (Cardio) RATE: regular rate RHYTHM: regular rhythm GI: COMMON NORMALS: Normal to inspection, nondistended, normoactive bowel sounds present, Soft to palpation, non-tender and no masses PALPATION: Yes Soft to palpation Extremity: COMMON NORMALS: normal to inspection and full ROM Neuro: COMMON NORMALS: patient oriented x3, moves all extremities and no focal motor deficits Psych: COMMON NORMALS: mental status grossly normal, Normal thought process present and cooperative THOUGHT PROCESS: Normal thought process present Skin: COMMON NORMALS: no rashes or lesions noted and no wounds GENERAL SKIN EXAM: no rashes or lesions noted Course Vital Signs: Vital signs: Vital Signs Temperature 98.1 F 11/27/22 20:48 Pulse Rate 60 11/27/22 23:00 Respiratory Rate 18 11/27/22 23:00 Blood Pressure 129/85 11/27/22 23:00 Pulse Oximetry 95 11/27/22 23:00 Oxygen Delivery Me thod 11/27/22 23:00 MDM - SOB/Dyspnea Medical Decision Making Patient presents for an upper respiratory infection she did test positive for rhinovirus x-ray here shows no pneumonia she is to continue her antibiotic she is on do breathing treatments did give her steroid here she is been well-appearing here no distress she is stable for discharge she is to follow-up return if worsening. Lab Data 11/27/22 21:30 11/27/22 21:30 Labs/Radiology: Radiology Impressions Chest X-Ray 11/27/22 20:58 IMPRESSION: No acute findings. Abdomen/Pelvis CT 11/27/22 22:17 IMPRESSION: 1. No small bowel obstruction, abscess or free air. 2. Constipation and severe atherosclerotic disease. 3. Likely cirrhosis with moderate splenomegaly. No visualized ascites. The findings are similar to a 03/08/2022 MRI. 4. Lymph node findings as above. There is mild periaortic fat stranding. Advise correlation. Recommend six-month follow-up. Laboratory Results WBC 2.4 10^3/uL (4.0-10.0) L 11/27/22 21:30 RBC 4.06 10^6/uL (4.1-5.3) L 11/27/22 21:30 Hgb 11.8 g/dL (11.5-15.3) 11/27/22 21:30 Hct 38.1 % (37.0-47.0) 11/27/22 21:30 MCV 93.8 fl (81-99) 11/27/22 21:30 MCH 29.1 pg (28.0-34.0) 11/27/22 21:30 MCHC 31.0 g/dL (30.0-36.0) 11/27/22 21:30 RDW 14.6 % (12.1-15.1) 11/27/22 21:30 Plt Count 117 10^3/cmm (130-400) L 11/27/22 21:30 MPV 13.8 fL (7.4-10.4) H 11/27/22 21:30 Neut % (Auto) 71.2 % 11/27/22 21:30 Lymph % (Auto) 18.9 % 11/27/22 21:30 [place] % (Auto) 9.1 % 11/27/22 21:30 Eos % (Auto) 0.0 % 11/27/22 21:30 Baso % (Auto) 0.4 % 11/27/22 21:30 Neut # (Auto) 1.73 10^3/uL (1.8-7.7) L 11/27/22 21:30 Lymph # (Auto) 0.5 10^3/uL (0.8-4.8) L 11/27/22 21:30 [place] # (Auto) 0.2 10^3/uL (0.2-0.9) 11/27/22 21:30 Eos # (Auto) 0.0 10^3/uL (0.0-0.8) 11/27/22 21:30 Baso # (Auto) 0.0 10^3/uL (0.0-0.1) 11/27/22 21: Nucleated RBC % (auto) 0 % 11/27/22: Nucleated RBCs # 0.0 /100WBC 11/27/22 21: PT 16.40 SECONDS (12.1-14.9) H 11/27/22 21: INR 1.29 (0.8-1.2) H 11/27/22 21:30 Sodium 141 mmol/L (136-145) 11/27/22 21:30 Potassium 3.9 mmol/L (3.5-5.1) 11/27/22 21: Chloride 100 mmol/L (98-107) 11/27/22 21: Carbon Dioxide 29 mmol/L (22-29) 11/27/22 21: Anion Gap 15.9 (5-19) 11/27/22 21:30 BUN 13 mg/dL (8-23) 11/27/22 21: Creatinine 1.3 mg/dL (0.5-0.9) H 11/27/22 21:30 GFR Calculation 41.5 mL/min (90-130) L 11/27/22 21:30 Glucose 128 mg/dL (65-115) H 11/27/22 21: Calculated Osmolality 294 mOsm/kg (285-295) 11/27/22: Calcium 9.0 mg/dL (8.5-10.5) 11/27/22 21:30 Total Bilirubin 0.5 mg/dL (0.15-1.2) 11/27/22 21: AST 36 U/L (0-32) H 01/02/23 21:30 ALT 25 U/L (0-33) 11/27/22 21:30 Alkaline Phosphatase 111 U/L (35-105) H 11/27/22 21:30 NT-Pro-B Natriuret Pep 191 pg/mL (0-125) H 11/27/22 21:30 Total Protein 7.2 g/dL (6.6-8.7) 11/27/22 21:30 Albumin 4.1 g/dL (3.5-5.2) 11/27/22 21:30 Globulin 3.1 g/dL (1.3-4.6) 11/27/22 21:30 Coronavirus 229E (PCR) Not detected (NOT DETECT) 11/27/22 21:20 Human Metapneumovir PCR Not detected (NOT DETECT) 11/27/22 23:44 Entero/Rhino (PCR) Detected (NOT DETECT) A 11/27/22 23:44 SARS-CoV-2 (PCR) Not detected (NOT DETECT) 11/27/22 21:20 Discharge Plan Discharge Patient Disposition: Home Clinical Impression: URI (upper respiratory infection) Condition: Stable Prescriptions: No Action propranolol 10 mg tablet 20 mg PO TID diltiazem HCl 240 mg capsule,extended release 24 hr 240 mg PO DAILY metoprolol succinate 25 mg tablet extended release 24 hr 25 mg PO DAILY atorvastatin 40 mg tablet 40 mg PO DAILY potassium chloride 10 mEq capsule, extended release 10 meq PO DAILY vitamin B complex [B Complex-Vitamin B12] Tablet 1 tab PO DAILY methylprednisolone acetate [Depo-Medrol] 80 mg/mL suspension 80 mg Infiltration ONCE Qty: 1 0RF Eliquis 5 mg tablet 5 mg PO BID gabapentin 300 mg capsule See Rx Instructions .ROUTE .COMPLEX Qty: 120 0RF Dose Instruction: TAKE 1 CAPSULE BY MOUTH EVERY MORNING, NOON AND 2 CAPSULES EVERY DAY AT BEDTIME Rx Instructions: TAKE 1 CAPSULE BY MOUTH EVERY MORNING, NOON AND 2 CAPSULES EVERY DAY AT BEDTIME escitalopram oxalate 20 mg tablet See Rx Instructions .ROUTE .COMPLEX Qty: 90 1RF Dose Instruction: TAKE 1 TABLET BY MOUTH DAILY Rx Instructions: TAKE 1 TABLET BY MOUTH DAILY cyclobenzaprine 10 mg tablet See Rx Instructions .ROUTE .COMPLEX Qty: 60 0RF Dose Instruction: TAKE ONE TO TWO TABLETS BY MOUTH EVERY DAY AT BEDTIME Rx Instructions: TAKE ONE TO TWO TABLETS BY MOUTH EVERY DAY AT BEDTIME Anoro Ellipta 62.5-25 mcg/actuation blister with device 1 inh inhalation DAILY Qty: 60 3RF Benlysta 200 mg/mL auto-injector 200 mg SUBCUT Q7D Qty: 4 3RF Discharge Orders: Discharge ED (Routine); Ordered 11/27/22 Ordered By: Yaakov Lerner Referrals: Stephanie Pina DO [Primary Care Provider] - Discharge Diet: Advance as tolerated Discharge Activity: Resume usual activity Patient Instructions: Upper Respiratory Infection (ED) Coding Level of Care Code ED Telegraph Mechanic for Chg Fwd Exam Comprehensive
[2022-11-27] MEDS: dexamethasone 10 mg/mL INJ IVP (21:40)
[2022-11-27 21:55] LABS: Basophils % 0.4 %; Hematocrit 38.1 % (37.0-47.0); Hemoglobin 11.8 g/dL (11.5-15.3); Lymphocytes # 0.5 10^3/uL (0.8-4.8); Lymphocytes % 18.9 %; Mean Corpuscular Hemoglobin 29.1 pg (28.0-34.0); Mean Corpuscular Volume 93.8 fl (81-99); Mean Platelet Volume 13.8 fL (7.4-10.4); Monocytes # 0.2 10^3/uL (0.2-0.9); Monocytes % 9.1 %; Neutrophils # 1.73 10^3/uL (1.8-7.7); Neutrophils % 71.2 %; Nucleated Red Blood Cells % 0 %; Platelet Count 117 10^3/cmm (130-400); Red Blood Count 4.06 10^6/uL (4.1-5.3); Red Cell Distribution Width 14.6 % (12.1-15.1); White Blood Count 2.4 10^3/uL (4.0-10.0)
[2022-11-27 21:56] LABS: INR 1.29 (0.8-1.2)
[2022-11-27 22:15] LABS: Alanine Aminotransferase 25 U/L (0-33); Albumin Level 4.1 g/dL (3.5-5.2); Alkaline Phosphatase 111 U/L (35-105); Anion Gap 15.9 (5-19); Aspartate Amino Transferase 36 U/L (0-32); Blood Urea Nitrogen 13 mg/dL (8-23); Carbon Dioxide 29 mmol/L (22-29); Chloride 100 mmol/L (98-107); Globulin 3.1 g/dL (1.3-4.6); Glomerular Filtration Rate 41.5 mL/min (90-130); Glucose 128 mg/dL (65-115); NT Pro B Type Natriuretic Pept 191 pg/mL (0-125); Osmolality Calculated 294 mOsm/kg (285-295); Potassium 3.9 mmol/L (3.5-5.1); Sodium 141 mmol/L (136-145); Total Bilirubin 0.5 mg/dL (0.15-1.2); Total Protein 7.2 g/dL (6.6-8.7)
--- NOTE | 2022-11-27 22:17 | CTR_ITS ---
PROCEDURE INFORMATION: Exam: CT Abdomen And Pelvis With Contrast Exam date and time: 11/27/2022 10:47 PM Age: 61 years old Clinical indication: Abdominal pain; Generalized; Prior surgery; Surgery type: Gb. Tubal ligation; Patient HX: C/O diffuse abd pain. History of ckd TECHNIQUE: Imaging protocol: Computed tomography of the abdomen and pelvis with contrast. Radiation optimization: All CT scans at this facility use at least one of these dose optimization techniques: automated exposure control; mA and/or kV adjustment per patient size (includes targeted exams where dose is matched to clinical indication); or iterative reconstruction. Contrast material: OMNI 350; Contrast volume: 80 ml; Contrast route: INTRAVENOUS (IV); COMPARISON: MR abdomen wo con [id number] 03/08/2022 1:23 PM RADIATION DOSE METRICS: Total DLP (mGy-cm): 1084.89 FINDINGS: Lungs: Mild lung base atelectasis or scarring. Diaphragm: Tiny hiatal hernia. Liver: Liver appears mildly cirrhotic. No enhancing liver mass is noted. Gallbladder and bile ducts: Absent gallbladder. Pancreas: Unremarkable with no suspicious mass. No ductal dilation. Spleen: Moderate splenomegaly. Adrenal glands: Normal. No mass. Kidneys and ureters: No solid renal mass or hydronephrosis. Stomach and bowel: Moderately fecal filled colon. No high-grade small bowel obstruction, abscess or free air. Pafi-tx-[id number] left colon diverticulosis. Appendix: No evidence of appendicitis. Intraperitoneal space: See Stomach and bowel finding. Vasculature: Advanced diffuse vascular calcification noted. Lymph nodes: Few partially imaged pericardial lymph nodes measure up to about 1.7 cm. These are of uncertain significance. There is periaortic fat stranding present with a few small lymph nodes. Urinary bladder: Unremarkable as visualized. Reproductive: Unremarkable as visualized. Bones/joints: No acute fracture. Soft tissues: No acute or suspicious finding noted. CT/CT abdomen pelvis w con* [id number] IMPRESSION: 1. No small bowel obstruction, abscess or free air. 2. Constipation and severe atherosclerotic disease. 3. Likely cirrhosis with moderate splenomegaly. No visualized ascites. The findings are similar to a 03/08/2022 MRI. 4. Lymph node findings as above. There is mild periaortic fat stranding. Advise correlation. Recommend six-month follow-up.
[2022-11-27 22:33] VITALS: BP 121/59; PULSE 60; RESP 20; O2SAT 98
[2022-11-27] MEDS: iohexol 350 mg/mL 500 mL Btl (per mL) IV (22:49)
[2022-11-27 23:00] VITALS: BP 129/85; PULSE 60; RESP 18; O2SAT 95
[2022-11-27 23:36] LABS: Adenovirus Not Detected (NOT DETECT); Chlamydia Pneumoniae Not Detected (NOT DETECT); Coronavirus 229E,HKU1,NL63,OC4 Not Detected (NOT DETECT); Human Metapneumovirus Not Detected (NOT DETECT); Human Rhinovirus/Enterovirus Detected (NOT DETECT); Influenza A Not Detected (NOT DETECT); Influenza A H1 Not Detected (NOT DETECT); Influenza A H1-2009 Not Detected (NOT DETECT); Influenza A H3 Not Detected (NOT DETECT); Influenza B Not Detected (NOT DETECT); Mycoplasma Pneumoniae Not Detected (NOT DETECT); Parainfluenza Virus Type 1 Not Detected (NOT DETECT); Parainfluenza Virus Type 2 Not Detected (NOT DETECT); Parainfluenza Virus Type 3 Not Detected (NOT DETECT); Parainfluenza Virus Type 4 Not Detected (NOT DETECT); Respiratory Syncytial Virus A Not Detected (NOT DETECT); Respiratory Syncytial Virus B Not Detected (NOT DETECT); SARS-COV-2 Not Detected (NOT DETECT)
[2022-11-27 23:44] LABS: Human Metapneumovirus Not Detected (NOT DETECT); Human Rhinovirus/Enterovirus Detected (NOT DETECT); Results from Genmark
[2022-11-28 00:07] VITALS: BP 125/76; PULSE 60; RESP 18; TEMP 37.1; O2SAT 95
== END 2022-11-28 00:08 | disposition home or self-care (01) ==
PROVIDERS: Emergency Provider Emergency Medicine; PCP Family Medicine
DX: J06.9 Acute upper respiratory infection, unspecified (principal); Z79.01 Long term (current) use of anticoagulants; Z20.822 Contact with and (suspected) exposure to COVID-19; Z87.891 Personal history of nicotine dependence; I12.9 Hypertensive chronic kidney disease with stage 1 through stage 4 chronic kidney disease, or unspecified chronic kidney disease; N18.9 Chronic kidney disease, unspecified; M32.9 Systemic lupus erythematosus, unspecified
CPT/HCPCS: 71045; 74177; 80053; 83880; 85025; 85610; 87635; 87801; 93005; 96374; 99285; J1100; Q9967

== ENCOUNTER 2022-12-14 14:14 | Outpatient (CLI) | payer MEDICARE, MEDICAID, SELFPAY ==
--- NOTE | 2022-12-14 14:21 | US_ITS ---
WS: [id number] LEFT 3D TOMOSYNTHESIS DIGITAL MAMMOGRAPHY WITH CAD CLINICAL INFORMATION: ABNORMAL MAMMO HISTORY: LEFT breast lumps COMPARISON: November 09, 2022 TECHNIQUE: 3 views of the left breast were obtained. FINDINGS: Scattered fibroglandular densities of the left breast. Incidental tiny punctate calcifications. Vascu lar calcifications. No mammographic abnormalities in the areas of palpable concern. Ultrasound descri bed below. ULTRASOUND BREAST LEFT TECHNIQUE: Ultrasound left breast focused area of concern. CLINICAL INFORMATION: ABNORMAL MAMMO FINDINGS: Ultrasound LEFT breast 12 and 3:00 positions in the area of concern. Normal underlying parenchymal ti ssue. No cystic or solid mass. No suspicious findings in the area of concern. Recommend return to [facility] screening mammography. US/US breast LT limited* [id number] IMPRESSION: BI-RADS: 2-Benign FOLLOW UP: 1 Year Follow-up Recommend return to annual screening mammography.
== END 2022-12-14 14:15 | disposition home or self-care (01) ==
LOC: RAD 14:17
PROVIDERS: PCP Family Medicine; Visit Provider Family Medicine
DX: R92.8 Other abnormal and inconclusive findings on diagnostic imaging of breast (principal)
CPT/HCPCS: 76642; 77061; G0279

== ENCOUNTER → 2022-12-21 10:32 | Outpatient (BNVA) | payer MEDICARE, MEDICAID, SELFPAY | PROVIDERS: PCP Family Medicine; Visit Provider Internal Medicine Rheumatology | DX: M32.9 Systemic lupus erythematosus, unspecified (principal); D72.819 Decreased white blood cell count, unspecified; N28.9 Disorder of kidney and ureter, unspecified; L93.1 Subacute cutaneous lupus erythematosus; Z71.89 Other specified counseling; Z79.899 Other long term (current) drug therapy | CPT/HCPCS: 99214 ==

== ENCOUNTER 2022-12-28 13:12 | Outpatient (CLI) | payer MEDICARE, MEDICAID, SELFPAY ==
[2022-12-28 13:50] LABS: Basophils % 0.7 %; Eosinophils % 0.4 %; Hematocrit 36.3 % (37.0-47.0); Hemoglobin 11.4 g/dL (11.5-15.3); Lymphocytes # 0.5 10^3/uL (0.8-4.8); Lymphocytes % 18.4 %; Mean Corpuscular HGB Conc 31.4 g/dL (30.0-36.0); Mean Corpuscular Hemoglobin 28.8 pg (28.0-34.0); Mean Corpuscular Volume 91.7 fl (81-99); Mean Platelet Volume 13.5 fL (7.4-10.4); Monocytes # 0.3 10^3/uL (0.2-0.9); Monocytes % 12.7 %; Neutrophils % 67.4 %; Nucleated Red Blood Cells % 0 %; Platelet Count 104 10^3/cmm (130-400); Red Blood Count 3.96 10^6/uL (4.1-5.3); Red Cell Distribution Width 14.9 % (12.1-15.1); White Blood Count 2.7 10^3/uL (4.0-10.0)
[2022-12-28 14:05] LABS: Alanine Aminotransferase 27 U/L (0-33); Albumin Level 3.8 g/dL (3.5-5.2); Alkaline Phosphatase 115 U/L (35-105); Aspartate Amino Transferase 31 U/L (0-32); Glomerular Filtration Rate 45.4 mL/min (90-130); Total Bilirubin 0.6 mg/dL (0.15-1.2); Total Protein 6.8 g/dL (6.6-8.7)
[2022-12-28 14:24] LABS: Urine Protein Random 4 mg/dL
[2022-12-28 14:26] LABS: Slide Review Slide Review Perform
[2022-12-28 14:32] LABS: Bilirubin Urine Neg (Negative); Blood Urine Neg (Negative); Glucose Urine UA Norm (Normal); Ketones Urine Negative (Negative); Leukocyte Esterase Urine Negative (Negative); Nitrate Urine Negative (Negative); Protein Urine Neg (Negative); Urine Appearance Clear (CLEAR); Urine Color Yellow (Yellow); Urobilinogen Urine Norm (Negative); pH Urine 6 (5-7)
[2022-12-28 14:33] LABS: Bacteria Urine TRACE /hpf; RBC Urine RARE /hpf (0-2); Squamous Epithelial Cell Urine 0-4 /hpf (0-5); WBC Urine RARE /hpf (0-5)
[2022-12-28 14:34] LABS: Add Urine Culture? No
== END 2022-12-28 13:13 | disposition home or self-care (01) ==
LOC: LAB 13:17
PROVIDERS: PCP Family Medicine; Referring Provider Internal Medicine; Visit Provider Internal Medicine Rheumatology
DX: K74.60 Unspecified cirrhosis of liver (principal); D72.819 Decreased white blood cell count, unspecified; M32.9 Systemic lupus erythematosus, unspecified; Z79.899 Other long term (current) drug therapy; M19.90 Unspecified osteoarthritis, unspecified site; N28.9 Disorder of kidney and ureter, unspecified
CPT/HCPCS: 36415; 80076; 81001; 82565; 84156; 85025; 85610; 86140; 87086

== ENCOUNTER 2023-01-03 06:00 | Outpatient (RCR) | payer MEDICARE, MEDICAID, SELFPAY | END 2023-01-23 23:59 | disposition home or self-care (01) | LOC: SPT 06:00 | PROVIDERS: PCP Family Medicine; Visit Provider Family Medicine | DX: R29.6 Repeated falls (principal) | CPT/HCPCS: 97110; 97162; 97530 ==

== ENCOUNTER → 2023-01-16 15:06 | Outpatient (BNVA) | payer MEDICARE, MEDICAID, SELFPAY | PROVIDERS: PCP Family Medicine; Visit Provider Internal Medicine | DX: I48.91 Unspecified atrial fibrillation (principal); Z79.01 Long term (current) use of anticoagulants; Z86.73 Personal history of transient ischemic attack (TIA), and cerebral infarction without residual deficits; I12.9 Hypertensive chronic kidney disease with stage 1 through stage 4 chronic kidney disease, or unspecified chronic kidney disease; N18.9 Chronic kidney disease, unspecified; Z87.891 Personal history of nicotine dependence; R06.00 Dyspnea, unspecified | CPT/HCPCS: 99214 ==

== ENCOUNTER 2023-01-24 06:00 | Outpatient (RCR) | payer MEDICARE, MEDICAID, SELFPAY | END 2023-01-24 23:59 | disposition home or self-care (01) | LOC: SPT 06:00 | PROVIDERS: PCP Family Medicine; Visit Provider Family Medicine | DX: R29.6 Repeated falls (principal); R53.1 Weakness | CPT/HCPCS: 97110; 97530 ==

== ENCOUNTER 2023-02-08 16:51 | Emergency (ER) | payer MEDICARE, MEDICAID, SELFPAY ==
[2023-02-08 16:55] VITALS: BP 143/74; PULSE 62; RESP 18; TEMP 36.6; O2SAT 95; BMI 38.7
--- NOTE | 2023-02-08 17:38 | CTR_ITS ---
PROCEDURE INFORMATION: Exam: CT Cervical Spine Without Contrast Exam date and time: 02/08/2023 5:46 PM Age: 62 years old Clinical indication: Neck pain; Additional info: Fall TECHNIQUE: Imaging protocol: Computed tomography of the cervical spine without contrast. Radiation optimization: All CT scans at this facility use at least one of these dose optimization techniques: automated exposure control; mA and/or kV adjustment per patient size (includes targeted exams where dose is matched to clinical indication); or iterative reconstruction. REPORTING DATA: Count of CT and Cardiac NM exams in prior 12 months: This patient has received 3 known CTs and 0 known cardiac nuclear medicine studies in the 12 months prior to the current study. COMPARISON: MR cervical spin wo con* [id number] 03/13/2022 4:14 PM RADIATION DOSE METRICS: Total DLP (mGy-cm): 279 FINDINGS: Bones/joints: The cervical spine is straightened which may be positional or related to spasm. No acute fracture. Multilevel degenerative changes are present. No severe spinal canal stenosis. Lungs: Lung apices are normal. Soft tissues: Unremarkable. CT/CT cervical spin wo con* [id number] IMPRESSION: No acute osseous injury.
--- NOTE | 2023-02-08 17:38 | CTR_ITS ---
PROCEDURE INFORMATION: Exam: CT Lumbar Spine Without Contrast Exam date and time: 02/08/2023 5:55 PM Age: 62 years old Clinical indication: Low back pain; Additional info: Fall TECHNIQUE: Imaging protocol: Computed tomography of the lumbar spine without contrast. Radiation optimization: All CT scans at this facility use at least one of these dose optimization techniques: automated exposure control; mA and/or kV adjustment per patient size (includes targeted exams where dose is matched to clinical indication); or iterative reconstruction. REPORTING DATA: Count of CT and Cardiac NM exams in prior 12 months: This patient has received 3 known CTs and 0 known cardiac nuclear medicine studies in the 12 months prior to the current study. COMPARISON: CT abdomen pelvis w con* [id number] 11/27/2022 10:47 PM RADIATION DOSE METRICS: Total DLP (mGy-cm): 1043.4 FINDINGS: Bones/joints: Mild chronic loss of height of the inferior endplate of L4 in the anterior/superior endplate of L5 which is likely related to Schmorl's node formation. Subtle nondisplaced anterior/superior endplate compression deformity is present in the L1 vertebrae. The other vertebral body heights are maintained. No bony retropulsion. Mild multilevel degenerative disc disease. Gallbladder and bile ducts: Cholecystectomy. Stomach and bowel: Colonic diverticuli. Soft tissues: Unremarkable. CT/CT lumbar spine wo con* [id number] IMPRESSION: Mild acute appearing superior endplate compression fracture deformity is seen in the anterior/superior endplate of L1. No retropulsion.
--- NOTE | 2023-02-08 17:38 | CTR_ITS ---
PROCEDURE INFORMATION: Exam: CT Head Without Contrast Exam date and time: 02/08/2023 5:46 PM Age: 62 years old Clinical indication: Injury or trauma; Concussion/head injury; Injury date: Fall with generalized pain in neck/head region; Prior surgery; Surgery date: 6+ months; Surgery type: Mastoidectomy; Additional info: Fall on anticoagulants TECHNIQUE: Imaging protocol: Computed tomography of the head without contrast. Radiation optimization: All CT scans at this facility use at least one of these dose optimization techniques: automated exposure control; mA and/or kV adjustment per patient size (includes targeted exams where dose is matched to clinical indication); or iterative reconstruction. REPORTING DATA: Count of CT and Cardiac NM exams in prior 12 months: This patient has received 3 known CTs and 0 known cardiac nuclear medicine studies in the 12 months prior to the current study. COMPARISON: CT head wo con* [id number] 01/19/2022 5:40 PM RADIATION DOSE METRICS: Total DLP (mGy-cm): 1091.3 FINDINGS: Brain: Chronic lacunar-type infarct in the left anterior basal ganglia is present at site of subacute infarct on comparison 01/19/2022 CT head. No acute infarct. No hemorrhage. Stable involutional changes of the brain. No mass effect. Cerebral ventricles: Stable ventricular size. No ventriculomegaly. Paranasal sinuses: Visualized sinuses are unremarkable. No fluid levels. Mastoid air cells: Visualized mastoid air cells are well aerated. Bones/joints: Left-sided retrosigmoid craniotomy postoperative changes are stable. Soft tissues: Unremarkable. CT/CT head wo con* [id number] IMPRESSION: 1. No acute intracranial abnormality. 2. Chronic lacunar-type infarct in the left anterior basal ganglia is present at site of subacute infarct on comparison 01/19/2022 CT head.
--- NOTE | 2023-02-08 17:39 | ED_ITS ---
Documented by User: Neftaly Shields DO 02/09/23 07:16 HPI - Fall General: Chief Complaint: Fall Stated Complaint: fall/back pain Time Seen by Provider: 02/08/23 17:10 Source: patient Mode of arrival: ambulatory History of Present Illness: 62-year-old female with a history of CVA currently on Eliquis. She has had several falls at home last 2 weeks she has some right- sided weakness as well as some arthritic changes to her knees that also is contributing to her falls. She fell in the bathtub room today she said she hit the back of her head on the door earlier this week she had fallen and hit her head as well she was not evaluated after those episodes. She complaining of some low back pain radiating to her hips as well. Reviewing her chart she has been referred to physical therapy for her repeated falls. MD complaint: fall Onset (ago): week(s) (2) Fall from: standing Fall witnessed: yes, by family Place fall occurred: home Loss of consciousness: None Prolonged down time: no Context: tripped/slipped Location of injury: head Associated symptoms-after fall: Denies abdominal pain, chest pain, confusion, di fficulty walking, headache(s), hematuria, lightheadedness, neck pain, numbness, short of breath, vertigo or weakness Review of Systems Const: Denies: fever(s), chills, body aches, change in appetite, fatigue or malaise ENMT: Denies: throat pain, ear or mastoid pain, nasal discharge or nasal conge stion Card: Denies: chest pain or lightheadedness Resp: Denies: dyspnea, productive cough or non-productive cough GI: Denies: abdominal pain : Denies: hematuria Musc: Denies: neck pain Skin/Breast: Denies: rash or pruritus Neuro: Denies: headache(s), difficulty walking, vertigo or confusion PFSH ED PFSH: Medical History Anxiety Autoimmune hepatitis Chronic migraine Cirrhosis of liver CKD (chronic kidney disease) Cutaneous lupus erythematosus Degenerative joint disease of cervical spine Fibromyalgia Hypertension Left carotid artery occlusion SLE (systemic lupus erythematosus) Stenosis of cervical spine with myelopathy Vitamin D deficiency Surgical History H/O brain surgery (2008) Occipital craniotomy for resection of acoustic neuroma History of cholecystectomy History of cranial reconstruction (2009) History of surgery on arm (2010) Open reduction for left arm fracture History of tubal ligation History of vascular surgery (12/2021) Thrombectomy for pulmonary embolism Family History Mother Cancer Breast cancer Brother Chronic kidney disease (CKD) Other CAD (coronary artery disease) Clotting disorder Hyperlipidemia Hypertension Stroke Denies family history of Rheumatoid arthritis Diabetes Lupus Dementia Psychiatric illness Suicide Anesthesia complication Bleeding disorder Lung disease Social History Smoking and tobacco status: former smoker Quit status (tobacco): has quit using tobacco Year quit tobacco: 1993 Former quit date comment: Hx of 1 PPD x 15 Years Second hand smoke exposure: No Smoking risk assessment/counseling performed?: No Alcohol intake: never Counseling given: No Counseling given: No Lives independently: Yes Household members: none Marital status: Current occupational status: unemployed Current gender identity: Female Physical Exam Const: GENERAL APPEARANCE: cooperative and comfortable ORIENTATION/CONSCIOUSNESS: Yes awake, Yes oriented to person, Yes oriented to place and Yes oriented to time HENMT: COMMON NORMALS: normocephalic, atraumatic and hearing grossly normal bilaterally HEAD & SCALP: normocephalic and atraumatic Resp: COMMON NORMALS: normal respiratory effort, No retractions, No use of accessory muscles and clear to auscultation bilaterally AUSCULTATION: clear to auscultation bilaterally Cardio: COMMON NORMALS: regular rate, regular rhythm and No murmurs present (Cardio) RATE: regular rate RHYTHM: regular rhythm GI: COMMON NORMALS: Soft to palpation and No hepatosplenomegaly present AUSCULTATION: Yes normoactive bowel sounds PALPATION: Yes Soft to palpation, No Tenderness to palpation present (GI), No Guarding due to palpation present (GI) and Yes No hepatosplenomegaly present Extremity: COMMON NORMALS: normal to inspection, capillary refill normal, no clubbing, cyanosis or edema, no calf tenderness and no pedal edema Neuro: SENSORIUM/ORIENTATION: Yes oriented to person, Yes oriented to place and Yes oriented to time OTHER: Mild dysarthria and right-sided weakness arm and leg according to the patient and her family member at the bedside this is her baseline. Skin: COMMON NORMALS: no rashes or lesions noted GENERAL SKIN EXAM: no rashes or lesions noted Course Vital Signs: Vital signs: Vital Signs Temperature 97.8 F 02/08/23 16:55 Pulse Rate 77 02/08/23 19:08 Respiratory Rate 18 02/08/23 19:08 Blood Pressure 154/85 02/08/23 19:08 Pulse Oximetry 95 02/08/23 16:55 Oxygen Delivery Me thod 02/08/23 16:55 MDM - Fall Medical Decision Making Imaging pending. Patient is complaining of a lot of back pain CT head because she states she hit her head on some of these falls but never lost consciousness no vomiting. CT of her spine because of complaints of back pain. Care signed out to Dr. Lerner at change of shift. See final notes for diagnosis and disposition. Patient presents after a fall I took patient over from Dr. Banerjee following CT scans CT of her L-spine did show a very mild compression fracture of L1 we will get her follow-up with surgeon we will prescribe her pain meds she is stable for discharge at this time. Lab Data Radiology Impressions Cervical Spine CT 02/08/23 17:38 IMPRESSION: No acute osseous injury. Head CT 02/08/23 17:38 IMPRESSION: 1. No acute intracranial abnormality. 2. Chronic lacunar-type infarct in the left anterior basal ganglia is present at site of subacute infarct on comparison 01/19/[address] Lum[address] Spine CT 02/08/23 17:38 IMPRESSION: Mild acute appearing superior endplate compression fracture deformity is seen in the anterior/superior endplate of L1. No retropulsion. Discharge Plan Discharge Patient Disposition: Home Clinical Impression: Fall, Closed compression fracture of L1 vertebra Condition: Stable Prescriptions: New hydrocodone-acetaminophen 5-325 mg tablet 1 tab PO Q6H PRN (Reason: pain) Qty: 14 0RF No Action propranolol 10 mg tablet 20 mg PO TID diltiazem HCl 240 mg capsule,extended release 24 hr 240 mg PO DAILY metoprolol succinate 25 mg tablet extended release 24 hr 25 mg PO DAILY atorvastatin 40 mg tablet 40 mg PO DAILY potassium chloride 10 mEq capsule, extended release 10 meq PO DAILY vitamin B complex [B Complex-Vitamin B12] Tablet 1 tab PO DAILY methylprednisolone acetate [Depo-Medrol] 80 mg/mL suspension 80 mg Infiltration ONCE Qty: 1 0RF Eliquis 5 mg tablet 5 mg PO BID Benlysta 200 mg/mL auto-injector 200 mg SUBCUT Q7D Qty: 4 3RF gabapentin 300 mg capsule See Rx Instructions .ROUTE .COMPLEX Qty: 120 0RF Dose Instruction: TAKE 1 CAPSULE BY MOUTH EVERY MORNING, NOON AND 2 CAPSULES EVERY DAY AT BEDTIME Rx Instructions: TAKE 1 CAPSULE BY MOUTH EVERY MORNING, NOON AND 2 CAPSULES EVERY DAY AT BEDTIME escitalopram oxalate 20 mg tablet See Rx Instructions .ROUTE .COMPLEX Qty: 90 1RF Dose Instruction: TAKE 1 TABLET BY MOUTH DAILY Rx Instructions: TAKE 1 TABLET BY MOUTH DAILY cyclobenzaprine 10 mg tablet See Rx Instructions .ROUTE .COMPLEX Qty: 60 0RF Dose Instruction: TAKE ONE TO TWO TABLETS BY MOUTH EVERY DAY AT BEDTIME Rx Instructions: TAKE ONE TO TWO TABLETS BY MOUTH EVERY DAY AT BEDTIME Anoro Ellipta 62.5-25 mcg/actuation blister with device 1 inh inhalation DAILY Qty: 60 3RF Discharge Orders: Discharge ED (Routine); Ordered 02/08/23 Ordered By: Yaakov Lerner Referrals: Sravan Danielle DO [Physician] - 1-3 days Stephanie Pina DO [Primary Care Provider] - 1-3 days Discharge Diet: Advance as tolerated Discharge Activity: Resume usual activity Patient Instructions: Thoracolumbar Fracture (ED) Coding Level of Care Code ED Lead Manufacturing Engineer for Chg Fwd Documented by User: Yaakov Lerner MD 02/08/23 19:00 HPI - Fall General: Chief Complaint: Fall Stated Complaint: fall/back pain Time Seen by Provider: 02/08/23 17:10 [facility] ED PFSH: Medical History Anxiety Autoimmune hepatitis Chronic migraine Cirrhosis of liver CKD (chronic kidney disease) Cutaneous lupus erythematosus Degenerative joint disease of cervical spine Fibromyalgia Hypertension Left carotid artery occlusion SLE (systemic lupus erythematosus) Stenosis of cervical spine with myelopathy Vitamin D deficiency Surgical History H/O brain surgery (2008) Occipital craniotomy for resection of acoustic neuroma History of cholecystectomy History of cranial reconstruction (2009) History of surgery on arm (2010) Open reduction for left arm fracture History of tubal ligation History of vascular surgery (12/2021) Thrombectomy for pulmonary embolism Family History Mother Cancer Breast cancer Brother Chronic kidney disease (CKD) Other CAD (coronary artery disease) Clotting disorder Hyperlipidemia Hypertension Stroke Denies family history of Rheumatoid arthritis Diabetes Lupus Dementia Psychiatric illness Suicide Anesthesia complication Bleeding disorder Lung disease Social History Smoking and tobacco status: former smoker Quit status (tobacco): has quit using tobacco Year quit tobacco: 1993 Former quit date comment: Hx of 1 PPD x 15 Years Second hand smoke exposure: No Smoking risk assessment/counseling performed?: No Alcohol intake: never Counseling given: No Counseling given: No Lives independently: Yes Household members: none Marital status: Current occupational status: unemployed Current gender identity: Female Course Vital Signs: Vital signs: Vital Signs Temperature 97.8 F 02/08/23 16:55 Pulse Rate 77 02/08/23 19:08 Respiratory Rate 18 02/08/23 19:08 Blood Pressure 154/85 02/08/23 19:08 Pulse Oximetry 95 02/08/23 16:55 Oxygen Delivery Me thod 02/08/23 16:55 MDM - Fall Medical Decision Making Patient presents after a fall I took patient over from Dr. Banerjee following CT scans CT of her L-spine did show a very mild compression fracture of L1 we will get her follow-up with surgeon we will prescribe her pain meds she is stable for discharge at this time. Lab Data Radiology Impressions Cervical Spine CT 02/08/23 17:38 IMPRESSION: No acute osseous injury. Head CT 02/08/23 17:38 IMPRESSION: 1. No acute intracranial abnormality. 2. Chronic lacunar-type infarct in the left anterior basal ganglia is present at site of subacute infarct on comparison 01/19/[address] CT head[address] Lum[address] Spine CT 02/08/23 17:38 IMPRESSION: Mild acute appearing superior endplate compression fracture deformity is seen in the anterior/superior endplate of L1. No retropulsion. Discharge Plan Discharge Patient Disposition: Home Clinical Impression: Fall, Closed compression fracture of L1 vertebra Condition: Stable Prescriptions: New hydrocodone-acetaminophen 5-325 mg tablet 1 tab PO Q6H PRN (Reason: pain) Qty: 14 0RF No Action propranolol 10 mg tablet 20 mg PO TID diltiazem HCl 240 mg capsule,extended release 24 hr 240 mg PO DAILY metoprolol succinate 25 mg tablet extended release 24 hr 25 mg PO DAILY atorvastatin 40 mg tablet 40 mg PO DAILY potassium chloride 10 mEq capsule, extended release 10 meq PO DAILY vitamin B complex [B Complex-Vitamin B12] Tablet 1 tab PO DAILY methylprednisolone acetate [Depo-Medrol] 80 mg/mL suspension 80 mg Infiltration ONCE Qty: 1 0RF Eliquis 5 mg tablet 5 mg PO BID Benlysta 200 mg/mL auto-injector 200 mg SUBCUT Q7D Qty: 4 3RF gabapentin 300 mg capsule See Rx Instructions .ROUTE .COMPLEX Qty: 120 0RF Dose Instruction: TAKE 1 CAPSULE BY MOUTH EVERY MORNING, NOON AND 2 CAPSULES EVERY DAY AT BEDTIME Rx Instructions: TAKE 1 CAPSULE BY MOUTH EVERY MORNING, NOON AND 2 CAPSULES EVERY DAY AT BEDTIME escitalopram oxalate 20 mg tablet See Rx Instructions .ROUTE .COMPLEX Qty: 90 1RF Dose Instruction: TAKE 1 TABLET BY MOUTH DAILY Rx Instructions: TAKE 1 TABLET BY MOUTH DAILY cyclobenzaprine 10 mg tablet See Rx Instructions .ROUTE .COMPLEX Qty: 60 0RF Dose Instruction: TAKE ONE TO TWO TABLETS BY MOUTH EVERY DAY AT BEDTIME Rx Instructions: TAKE ONE TO TWO TABLETS BY MOUTH EVERY DAY AT BEDTIME Anoro Ellipta 62.5-25 mcg/actuation blister with device 1 inh inhalation DAILY Qty: 60 3RF Discharge Orders: Discharge ED (Routine); Ordered 02/08/23 Ordered By: Yaakov Lerner Referrals: Sravan Danielle DO [Physician] - 1-3 days Stephanie Pina DO [Primary Care Provider] - 1-3 days Discharge Diet: Advance as tolerated Discharge Activity: Resume usual activity Patient Instructions: Thoracolumbar Fracture (ED) Coding Level of Care Code ED Lead Manufacturing Engineer for Chg Fwzaynab
--- NOTE | 2023-02-08 18:55 | PC.NURSE ---
REPORT GIVEN TO EMILIA PALACIOS ASS[facility]ARE.
[2023-02-08 19:08] VITALS: BP 154/85; PULSE 77; RESP 18
--- NOTE | 2023-02-12 09:37 | DCPLANNER ---
Addendum entered by Seble Colmenares 02/16/23 09:16: Patient had a follow up appointment scheduled with ortho - patient did attend appointment Addendum entered by Seble Colmenares 02/13/23 08:14: Patient has a follow up appointment scheduled for Monday, February 13, 2023 at 2:45 with ortho. Clinic will call patient with appointment information. Original Note: shift nurse manager had message to schedule a follow up appointment for patient with ortho. shift nurse manager sent patients information to the front office staff at ortho. Patients information will be printed and reviewed. Clinic will call patient with appointment information.
== END 2023-02-08 19:09 | disposition home or self-care (01) ==
PROVIDERS: Emergency Provider Emergency Medicine; PCP Family Medicine
DX: S32.010A Wedge compression fracture of first lumbar vertebra, initial encounter for closed fracture (principal); Z79.01 Long term (current) use of anticoagulants; Z87.891 Personal history of nicotine dependence; I12.9 Hypertensive chronic kidney disease with stage 1 through stage 4 chronic kidney disease, or unspecified chronic kidney disease; N18.9 Chronic kidney disease, unspecified; M32.9 Systemic lupus erythematosus, unspecified; Z86.73 Personal history of transient ischemic attack (TIA), and cerebral infarction without residual deficits; W18.2XXA Fall in (into) shower or empty bathtub, initial encounter
CPT/HCPCS: 70450; 72125; 72131; 72132; 99284

== ENCOUNTER 2023-02-13 13:14 | Outpatient (CLI) | payer MEDICARE, MEDICAID, SELFPAY ==
--- NOTE | 2023-02-13 13:30 | USCV_ITS ---
Verónica Pat Age: 62 Gender: F : 1960 Exam Date: 02/13/2023 14:08 Ordering Phys: Jhonathan Mendoza M.D ([email or web address]) Technologist: Vincent Massey Exam Location: [facility] [place] Indication: sob, chest pain BP: 130 / 69 HR: 70 Rhythm: Sinus Technical Quality: Adequate MEASUREMENTS (Male / Female) Normal Values 2D ECHO LV Diastolic Diameter PLAX 5.3 cm 4.2 - 5.9 / 3.9 - 5.3 cm LV Systolic Diameter PLAX 3.8 cm IVS Diastolic Thickness 0.6 cm 0.6 - 1.0 / 0.6 - 0.9 cm IVS Systolic Thickness 1.1 cm LVPW Diastolic Thickness 1.1 cm 0.6 - 1.0 / 0.6 - 0.9 cm LVPW Systolic Thickness 1.5 cm LVOT Diameter 2.0 cm LV Ejection Fraction 2D Teich 55.7 % LV Ejection Fraction MOD 2C 62.7 % LV Ejection Fraction 2C AL 63.5 % LA Diameter 3.6 cm LA Width 3.1 cm LA Height 4.4 cm RA Width 2.8 cm RA Height 3.3 cm Aorta at Sinotubular Diameter 2.2 cm IVC Diameter 1.2 cm M-MODE Aortic Annulus Diameter 2.4 cm LA Ao Ratio MM 1.6 MV E Point Septal Separation 0.4 cm DOPPLER AV Peak Velocity 160.7 cm/s LVOT Peak Velocity 105.0 cm/s AV Area Cont Eq vti 2.0 cm squared AV Area Cont Eq pk 2.1 cm squared MV Peak Velocity 111.0 cm/s MV Area PHT 3.7 cm squared Mitral E to A Ratio 1.2 MV E' Velocity 41.5 cm/s Mitral E to MV E' Ratio 7.8 Mitral E to LV E' Lateral Ratio 7.7 Mitral E to LV E' Septal Ratio 7.9 TR Peak Velocity 131.2 cm/s TR Peak Gradient 6.9 mmHg TR Mean Velocity 87.9 cm/s TR Mean Gradient 3.6 mmHg TR Velocity Time Integral 32.6 cm Right Atrial Pressure 3.0 mmHg Pulmonary Artery Systolic Pressu 9.9 mmHg PV Peak Velocity 113.3 cm/s RV Acceleration Time 0.1 s RV Ejection Time 0.3 s RV AcT/ET 0.4 FINDINGS Left Ventricle Left ventricle is normal in size. LV systolic function is normal with EF of 60 to 65%. No regional wall motion abnormalities are seen. Right Ventricle Normal in size and function Right Atrium Normal in size Left Atrium Normal in size Mitral Valve Structurally normal mitral valve. Trace mitral valve regurgitation. Aortic Valve Structurally normal aortic valve. No significant stenosis or regurgitation. Tricuspid Valve Mild tricuspid regurgitation. Pulmonary artery systolic pressure is normal. Pulmonic Valve Not well-visualized Pericardium Grossly normal Aorta Normal in size IVC Appears to normal CONCLUSIONS LV systolic function is normal with EF 60 to 65% Trace mitral regurgitation Mild tricuspid regurgitation X-ray Comparison with prior echo is not possible because that had poor ultrasonic windows with limited visualization. Jhonathan Mendoza MD (Electronically Signed) Final Date: 24 February 2023 09:19 S
[2023-02-13] MEDS: perflutren protein-a microsphr 0.22 mg/mL SDV 3 mL IV (15:19)
== END 2023-02-13 13:15 | disposition home or self-care (01) ==
LOC: RAD 13:17
PROVIDERS: PCP Family Medicine; Visit Provider Internal Medicine
DX: R06.02 Shortness of breath (principal); R07.9 Chest pain, unspecified; I08.1 Rheumatic disorders of both mitral and tricuspid valves
CPT/HCPCS: C8929; Q9956

== ENCOUNTER → 2023-02-15 14:38 | Outpatient (BNVA) | payer MEDICARE, MEDICAID, SELFPAY | PROVIDERS: PCP Family Medicine; Visit Provider Physician Assistant | DX: S32.010A Wedge compression fracture of first lumbar vertebra, initial encounter for closed fracture (principal); Z91.81 History of falling; W19.XXXA Unspecified fall, initial encounter; Y93.89 Activity, other specified; M47.896 Other spondylosis, lumbar region | CPT/HCPCS: 72100; 99203 ==

== ENCOUNTER → 2023-02-16 10:36 | Outpatient (BNVA) | payer MEDICARE, MEDICAID, SELFPAY | PROVIDERS: PCP Family Medicine; Visit Provider Nurse Practitioner Family | DX: M17.11 Unilateral primary osteoarthritis, right knee (principal) | CPT/HCPCS: 20610; 99213; J1100; J2795 ==

== ENCOUNTER 2023-02-24 01:31 | Emergency (ER) | payer MEDICARE, MEDICAID, SELFPAY ==
[2023-02-24 01:36] VITALS: BP 115/65; BP 123/72; BP 125/74; PULSE 80; PULSE 88; PULSE 89; RESP 16
--- NOTE | 2023-02-24 01:38 | XRR_ITS ---
PROCEDURE INFORMATION: Exam: XR Chest Exam date and time: 02/24/2023 2:17 AM Age: 62 years old Clinical indication: Injury or trauma; Crushing; Patient HX: Frequent falls; Additional info: Weakness TECHNIQUE: Imaging protocol: Radiologic exam of the chest. Views: 1 view. COMPARISON: CR XR chest 1V portable [id number] 11/27/2022 9:13 PM FINDINGS: Lungs: Unremarkable. No consolidation. Pleural spaces: Unremarkable. No pleural effusion. No pneumothorax. Heart/Mediastinum: Unremarkable. No cardiomegaly. Bones/joints: Unremarkable. XR/XR chest 1V portable [id number] IMPRESSION: No acute findings.
--- NOTE | 2023-02-24 01:38 | CTR_ITS ---
PROCEDURE INFORMATION: Exam: CT Head Without Contrast Exam date and time: 02/24/2023 2:05 AM Age: 62 years old Clinical indication: Injury or trauma; Blunt trauma (contusions or hematomas); Consciousness not specified; Prior surgery; Surgery date: 6+ months; Surgery type: Occipital craniotomy for acoustic neuroma 2008; Patient HX: Weakness, frequent falls TECHNIQUE: Imaging protocol: Computed tomography of the head without contrast. Radiation optimization: All CT scans at this facility use at least one of these dose optimization techniques: automated exposure control; mA and/or kV adjustment per patient size (includes targeted exams where dose is matched to clinical indication); or iterative reconstruction. REPORTING DATA: Count of CT and Cardiac NM exams in prior 12 months: This patient has received 5 known CTs and 0 known cardiac nuclear medicine studies in the 12 months prior to the current study. COMPARISON: CT head wo con* [id number] 02/08/2023 5:46 PM RADIATION DOSE METRICS: Total DLP (mGy-cm): 1166.98 FINDINGS: Brain: No acute intracranial hemorrhage, abnormal extra-axial fluid collection, mass effect, or midline shift. Left basal ganglia / left merino radiata areas of encephalomalacia compatible with sequelae of remote infarct. Mild periventricular and subcortical white matter hypo densities compatible with changes of mild burden chronic small-vessel disease. Cerebral ventricles: Mild ex vacuo dilatation of the left lateral ventricle, otherwise the ventricular system is within normal limits of variation for the patient's age. Paranasal sinuses: Visualized paranasal sinuses are grossly unremarkable. No fluid levels. Mastoid air cells: Visualized mastoid air cells are well aerated. Bones/joints: No acute fracture. Operative changes of left parieto-occipital craniotomy are re-identified Soft tissues: Unremarkable. Vasculature: Atheromatous changes are seen within the bilateral carotid siphons and V4 segments of the bilateral vertebral arteries. CT/CT head wo con* [id number] IMPRESSION: 1. No acute intracranial findings. 2. Other chronic/incidental findings as described above.
--- NOTE | 2023-02-24 01:39 | ED_ITS ---
Documented by User: MILEY Salazar 02/24/23 02:41 HPI - Weakness General: Chief complaint: Fall Stated complaint: WEAKNESS Time Seen by Provider: 02/24/23 01:38 History of Present Illness: 62-year-old female comes in today for complaints of low back pain after fall. Patient states 1 week ago she was seen in the ER for a previous fall and was diagnosed with a compression fracture of the low back. Patient states that she does have episodes of dizziness and often her knees will give out on her due to the osteoarthritis in them. Patient also has a history of CVA, DVT, BURTON, cirrhosis, CKD, lupus, fibromyalgia, and chronic back pain. Patient denies any fever or nausea or vomiting. Patient reports no chest pain or shortness of breath. Associated symptoms: Denies chest pain, fever(s), nausea or vomiting Review of Systems General: Reports: 10 or more systems reviewed and unremarkable except in HPI and below Const: Denies: fever(s) Card: Denies: chest pain Resp: Denies: dyspnea GI: Denies: nausea, vomiting, diarrhea or constipation : Denies: difficulty voiding Musc: Reports: back pain Skin/Breast: Denies: rash Neuro: Reports: dizziness PFSH ED PFSH: Medical History Anxiety Autoimmune hepatitis Chronic migraine Cirrhosis of liver CKD (chronic kidney disease) Cutaneous lupus erythematosus Degenerative joint disease of cervical spine Fibromyalgia Hypertension Left carotid artery occlusion SLE (systemic lupus erythematosus) Stenosis of cervical spine with myelopathy Vitamin D deficiency Surgical History H/O brain surgery (2008) Occipital craniotomy for resection of acoustic neuroma History of cholecystectomy History of cranial reconstruction (2009) History of surgery on arm (2010) Open reduction for left arm fracture History of tubal ligation History of vascular surgery (12/2021) Thrombectomy for pulmonary embolism Family History Mother Cancer Breast cancer Brother Chronic kidney disease (CKD) Other CAD (coronary artery disease) Clotting disorder Hyperlipidemia Hypertension Stroke Denies family history of Rheumatoid arthritis Diabetes Lupus Dementia Psychiatric illness Suicide Anesthesia complication Bleeding disorder Lung disease Social History Smoking and tobacco status: former smoker Quit status (tobacco): has quit using tobacco Year quit tobacco: 1993 Former quit date comment: Hx of 1 PPD x 15 Years Second hand smoke exposure: No Smoking risk assessment/counseling performed?: No Alcohol intake: never Counseling given: No Counseling given: No Lives independently: Yes Household members: none Marital status: Current occupational status: unemployed Current gender identity: Female Physical Exam Const: COMMON NORMALS: alert HENMT: COMMON NORMALS: normocephalic and atraumatic HEAD & SCALP: normocephalic and atraumatic MOUTH: Normal oral and palatal mucosa present Neck/C-Spine: COMMON NORMALS: full ROM CERVICAL SPINE: No Cervical spine tenderness Chest: COMMONS NORMALS: normal palpation of entire chest wall Resp: COMMON NORMALS: normal respiratory effort and clear to auscultation bila terally AUSCULTATION: clear to auscultation bilaterally Cardio: COMMON NORMALS: regular rate, regular rhythm, S1 normal heart sound present and S2 normal heart sound present RATE: regular rate RHYTHM: regular rhythm HEART SOUNDS: S1 normal heart sound present and S2 normal heart sound present GI: COMMON NORMALS: Soft to palpation and non-tender PALPATION: Yes Soft to palpation : COMMON NORMALS: Yes no CVA tenderness BLADDER/KIDNEY EXAM: Yes no CVA tenderness Back/Pelvis: COMMON NORMALS: no CVA tenderness THORACIC SPINE/UPPER BACK: No thoracic spinal tenderness LUMBAR SPINE/LOWER BACK: No lumbar spinal tenderness Extremity: COMMON NORMALS: normal to inspection Neuro: SENSORIUM/ORIENTATION: Yes alert Skin: COMMON NORMALS: no rashes or lesions noted GENERAL SKIN EXAM: no rashes or lesions noted Course ED course: 0245, reviewed patient with Dr. Armijo who will assume care of the patient at the end of my shift. We are awaiting labs and reports of CT and x- ray. Patient is resting well without any difficulty or complaints. Vital Signs: Vital signs: Vital Signs Temperature 98.0 F 02/24/23 01:44 Pulse Rate 80 02/24/23 05:43 Respiratory Rate 18 02/24/23 05:43 Blood Pressure 117/63 02/24/23 02:29 Pulse Oximetry 98 02/24/23 05:43 Oxygen Delivery Me thod 02/24/23 02:29 MDM - Weakness Medical Decision Making 62-year-old female comes in today for concerns of fall and injury to back. Patient reports that she was has a fracture to her back from a recent fall x1 week. Tonight patient went to stand and became dizzy and felt like her knees gave out causing her to fall back. Patient was brought in by EMS for concerns of repeat injury to the back. EMS reported 2 man assist to get patient standing she was able to stand and transfer to the cot. Patient reports dizziness with standing. On exam pupils are equal and reactive. Patient is hard of hearing. Lungs are clear to auscultation. Heart rates regular. No tenderness is noted along the cervical, thoracic, lumbar spine. Patient moves all extremities well. Patient appears nontoxic. Differential diagnosis includes but not limited to compression fracture of the spine, dehydration, syncope, hypotension. Lab Data 02/24/23 01:56 02/24/23 01:56 Radiology Impressions Chest X-Ray 02/24/23 01:38 IMPRESSION: No acute findings. Head CT 02/24/23 01:38 IMPRESSION: 1. No acute intracranial findings. 2. Other chronic/incidental findings as described above. Lumbar Spine CT 02/24/23 01:48 IMPRESSION: There is further compression of the superior endplate L1 vertebral body compared 02/08/2023. Laboratory Results WBC 2.7 10^3/uL (4.0-10.0) L 02/24/23 01:56 RBC 3.88 10^6/uL (4.1-5.3) L 02/24/23 01:56 Hgb 11.2 g/dL (11.5-15.3) L 02/24/23 01:56 Hct 35.7 % (37.0-47.0) L 02/24/23 01:56 MCV 92.0 fl (81-99) 02/24/23 01:56 MCH 28.9 pg (28.0-34.0) 02/24/23 01:56 MCHC 31.4 g/dL (30.0-36.0) 02/24/23 01:56 RDW 14.7 % (12.1-15.1) 02/24/23 01:56 Plt Count 101 10^3/cmm (130-400) L 02/24/23 01:56 MPV 13.4 fL (7.4-10.4) H 02/24/23 01:56 Lymph % (Auto) Not Reportable 02/24/23 01:56 [place] % (Auto) Not Reportable 02/24/23 01:56 Lymph # (Auto) Not Reportable 02/24/23 01:56 [place] # (Auto) Not Reportable 02/24/23 01:56 Total Counted 100 (0-100) 02/24/23 01:56 Atypical Lymphs % 0.0 % (0-5) 02/24/23 01:56 Absolute Neutrophils 1.8 10^3/cmm (1.4-6.5) 02/24/23 01:56 Segmented Neutrophils 66 % 02/24/23 01:56 Abs Segm Neuts (Man) 1.8 10/cmm (1.6-7.1) 02/24/23 01:56 Band Neutrophils 0.0 % 02/24/23 01:56 Abs Band Neuts (Man) 0.0 10^3/cmm (0.0-1.2) 02/24/23 01:56 Absolute Lymphocytes 0.3 10^3/cmm (1.2-3.4) L 02/24/23 01:56 Lymphocytes (Manual) 10 % 02/24/23 01:56 Monocytes (Manual) 23.0 % 02/24/23 01:56 Absolute Monocytes 0.6 10^3/cmm (0.1-0.6) 02/24/23 01:56 Eosinophils (Manual) 1 % 02/24/23 01:56 Absolute Eosinophils 0.0 10^3/cmm (0.0-0.7) 02/24/23 01:56 Basophils (Manual) 0.0 % 02/24/23 01:56 Absolute Basophils 0.0 10^3/cmm (0.0-0.2) 02/24/23 01:56 Platelet Estimate Normal (Normal) 02/24/23 01:56 Giant Platelets 1+ H 02/24/23 01:56 Amos Cells Trace 02/24/23 01:56 Sodium 136 mmol/L (136-145) 02/24/23 01:56 Potassium 3.7 mmol/L (3.5-5.1) 02/24/23 01:56 Chloride 99 mmol/L (98-107) 02/24/23 01:56 Carbon Dioxide 22 mmol/L (22-29) 02/24/23 01:56 Anion Gap 18.7 (5-19) 02/24/23 01:56 BUN 9 mg/dL (8-23) 02/24/23 01:56 Creatinine 1.3 mg/dL (0.5-0.9) H 02/24/23 01:56 GFR Calculation 41.4 mL/min (90-130) L 02/24/23 01:56 Glucose 99 mg/dL (65-115) 02/24/23 01:56 Calculated Osmolality 281 mOsm/kg (285-295) L 02/24/23 01:56 Calcium 9.3 mg/dL (8.5-10.5) 02/24/23 01:56 Total Bilirubin 0.8 mg/dL (0.15-1.2) 02/24/23 01:56 AST 27 U/L (0-32) 02/24/23 01:56 ALT 19 U/L (0-33) 02/24/23 01:56 Alkaline Phosphatase 149 U/L (35-105) H 02/24/23 01:56 Troponin T Baseline 27 ng/L (0-10) H 02/24/23 01:56 Troponin T 120 Minute 28.46 ng/L (0-10) H 02/24/23 03:55 Delta Troponin T 1.46 ABS# (0-10) 02/24/23 03:55 Total Protein 6.3 g/dL (6.6-8.7) L 02/24/23 01:56 Albumin 3.5 g/dL (3.5-5.2) 02/24/23 01:56 Globulin 2.8 g/dL (1.3-4.6) 02/24/23 01:56 Urine Color Yellow (Yellow) 02/24/23 04:00 Urine Appearance Clear (CLEAR) 02/24/23 04:00 Urine pH 5 (5-7) 02/24/23 04:00 Ur Specific Pine 1.010 (1.005-1.030) 02/24/23 04:00 Urine Protein Neg (Negative) 02/24/23 04:00 Urine Glucose (UA) Norm (Normal) 02/24/23 04:00 Urine Ketones Negative (Negative) 02/24/23 04:00 Urine Blood Neg (Negative) 02/24/23 04:00 Urine Nitrate Negative (Negative) 02/24/23 04:00 Urine Bilirubin Neg (Negative) 02/24/23 04:00 Urine Urobilinogen Norm mg/dL (Negative) 02/24/23 04:00 Ur Leukocyte Esterase Negative (Negative) 02/24/23 04:00 Discharge Plan Discharge Patient Disposition: Home Clinical Impression: Closed compression fracture of body of L1 vertebra Condition: Stable Prescriptions: Continued hydrocodone-acetaminophen 5-325 mg tablet 1 tab PO Q6H PRN (Reason: pain) Qty: 10 0RF No Action propranolol 10 mg tablet 20 mg PO TID diltiazem HCl 240 mg capsule,extended release 24 hr 240 mg PO DAILY metoprolol succinate 25 mg tablet extended release 24 hr 25 mg PO DAILY atorvastatin 40 mg tablet 40 mg PO DAILY potassium chloride 10 mEq capsule, extended release 10 meq PO DAILY vitamin B complex [B Complex-Vitamin B12] Tablet 1 tab PO DAILY methylprednisolone acetate [Depo-Medrol] 80 mg/mL suspension 80 mg Infiltration ONCE Qty: 1 0RF Eliquis 5 mg tablet 5 mg PO BID Benlysta 200 mg/mL auto-injector 200 mg SUBCUT Q7D Qty: 4 3RF tramadol 50 mg tablet 50 mg PO TID PRN (Reason: pain) 7 Days Qty: 21 0RF gabapentin 300 mg capsule See Rx Instructions .ROUTE .COMPLEX Qty: 120 0RF Dose Instruction: TAKE 1 CAPSULE BY MOUTH EVERY MORNING, NOON AND 2 CAPSULES EVERY DAY AT BEDTIME Rx Instructions: TAKE 1 CAPSULE BY MOUTH EVERY MORNING, NOON AND 2 CAPSULES EVERY DAY AT BEDTIME escitalopram oxalate 20 mg tablet See Rx Instructions .ROUTE .COMPLEX Qty: 90 1RF Dose Instruction: TAKE 1 TABLET BY MOUTH DAILY Rx Instructions: TAKE 1 TABLET BY MOUTH DAILY cyclobenzaprine 10 mg tablet See Rx Instructions .ROUTE .COMPLEX Qty: 60 0RF Dose Instruction: TAKE ONE TO TWO TABLETS BY MOUTH EVERY DAY AT BEDTIME Rx Instructions: TAKE ONE TO TWO TABLETS BY MOUTH EVERY DAY AT BEDTIME Anoro Ellipta 62.5-25 mcg/actuation blister with device 1 inh inhalation DAILY Qty: 60 3RF Discharge Orders: Discharge ED (Routine); Ordered 02/24/23 Ordered By: Tim Armijo Referrals: Stephanie Pina DO [Primary Care Provider] - Patient Instructions: Vertebral Compression Fracture (ED) Activity Restrictions/Additional Instructions: Follow-up with your doctor next week. Case management will make an appointment for you for follow-up with spine surgery, as you have seen them prior.. There are times when procedures can be done to stabilize compression fractures, although not all the time. Return for worsening pain despite treatment, worsening weakness, other concerning symptoms. Coding Level of Care Code ED Assembler Bonding for Chg Fwd Documented by User: Tim Armijo DO 02/24/23 20:09 HPI - Weakness General: Chief complaint: Fall Stated complaint: WEAKNESS Time Seen by Provider: 02/24/23 01:38 PFSH ED PFSH: Medical History Anxiety Autoimmune hepatitis Chronic migraine Cirrhosis of liver CKD (chronic kidney disease) Cutaneous lupus erythematosus Degenerative joint disease of cervical spine Fibromyalgia Hypertension Left carotid artery occlusion SLE (systemic lupus erythematosus) Stenosis of cervical spine with myelopathy Vitamin D deficiency Surgical History H/O brain surgery (2008) Occipital craniotomy for resection of acoustic neuroma History of cholecystectomy History of cranial reconstruction (2009) History of surgery on arm (2010) Open reduction for left arm fracture History of tubal ligation History of vascular surgery (12/2021) Thrombectomy for pulmonary embolism Family History Mother Cancer Breast cancer Brother Chronic kidney disease (CKD) Other CAD (coronary artery disease) Clotting disorder Hyperlipidemia Hypertension Stroke Denies family history of Rheumatoid arthritis Diabetes Lupus Dementia Psychiatric illness Suicide Anesthesia complication Bleeding disorder Lung disease Social History Smoking and tobacco status: former smoker Quit status (tobacco): has quit using tobacco Year quit tobacco: 1993 Former quit date comment: Hx of 1 PPD x 15 Years Second hand smoke exposure: No Smoking risk assessment/counseling performed?: No Alcohol intake: never Counseling given: No Counseling given: No Lives independently: Yes Household members: none Marital status: Current occupational status: unemployed Current gender identity: Female Course Vital Signs: Vital signs: Vital Signs Temperature 98.0 F 02/24/23 01:44 Pulse Rate 80 02/24/23 05:43 Respiratory Rate 18 02/24/23 05:43 Blood Pressure 117/63 02/24/23 02:29 Pulse Oximetry 98 02/24/23 05:43 Oxygen Delivery Me thod 02/24/23 02:29 MDM - Weakness Medical Decision Making 62-year-old female comes in today for concerns of fall and injury to back. Patient reports that she was has a fracture to her back from a recent fall x1 week. Tonight patient went to stand and became dizzy and felt like her knees gave out causing her to fall back. Patient was brought in by EMS for concerns of repeat injury to the back. EMS reported 2 man assist to get patient standing she was able to stand and transfer to the cot. Patient reports dizziness with standing. On exam pupils are equal and reactive. Patient is hard of hearing. Lungs are clear to auscultation. Heart rates regular. No tenderness is noted along the cervical, thoracic, lumbar spine. Patient moves all extremities well. Patient appears nontoxic. Differential diagnosis includes but not limited to compression fracture of the spine, dehydration, syncope, hypotension. 62-year-old female checked out to me by nurse practitioner at shift change. This lady had fallen at home. She has knee osteoarthritis. Head CT is negat marcella. Her lumbar CT shows mild further compression of the superior endplate at L1 compared to 02/08. There is no other acute finding. Laboratory is stable. She will be discharged to follow-up with spine surgery. Lab Data 02/24/23 01:56 02/24/23 01:56 Radiology Impressions Chest X-Ray 02/24/23 01:38 IMPRESSION: No acute findings. Head CT 02/24/23 01:38 IMPRESSION: 1. No acute intracranial findings. 2. Other chronic/incidental findings as described above. Lumbar Spine CT 02/24/23 01:48 IMPRESSION: There is further compression of the superior endplate L1 vertebral body compared 02/08/2023. Laboratory Results WBC 2.7 10^3/uL (4.0-10.0) L 02/24/23 01:56 RBC 3.88 10^6/uL (4.1-5.3) L 02/24/23 01:56 Hgb 11.2 g/dL (11.5-15.3) L 02/24/23 01:56 Hct 35.7 % (37.0-47.0) L 02/24/23 01:56 MCV 92.0 fl (81-99) 02/24/23 01:56 MCH 28.9 pg (28.0-34.0) 02/24/23 01:56 MCHC 31.4 g/dL (30.0-36.0) 02/24/23 01:56 RDW 14.7 % (12.1-15.1) 02/24/23 01:56 Plt Count 101 10^3/cmm (130-400) L 02/24/23 01:56 MPV 13.4 fL (7.4-10.4) H 02/24/23 01:56 Lymph % (Auto) Not Reportable 02/24/23 01:56 [place] % (Auto) Not Reportable 02/24/23 01:56 Lymph # (Auto) Not Reportable 02/24/23 01:56 [place] # (Auto) Not Reportable 02/24/23 01:56 Total Counted 100 (0-100) 02/24/23 01:56 Atypical Lymphs % 0.0 % (0-5) 02/24/23 01:56 Absolute Neutrophils 1.8 10^3/cmm (1.4-6.5) 02/24/23 01:56 Segmented Neutrophils 66 % 02/24/23 01:56 Abs Segm Neuts (Man) 1.8 10/cmm (1.6-7.1) 02/24/23 01:56 Band Neutrophils 0.0 % 02/24/23 01:56 Abs Band Neuts (Man) 0.0 10^3/cmm (0.0-1.2) 02/24/23 01:56 Absolute Lymphocytes 0.3 10^3/cmm (1.2-3.4) L 02/24/23 01:56 Lymphocytes (Manual) 10 % 02/24/23 01:56 Monocytes (Manual) 23.0 % 02/24/23 01:56 Absolute Monocytes 0.6 10^3/cmm (0.1-0.6) 02/24/23 01:56 Eosinophils (Manual) 1 % 02/24/23 01:56 Absolute Eosinophils 0.0 10^3/cmm (0.0-0.7) 02/24/23 01:56 Basophils (Manual) 0.0 % 02/24/23 01:56 Absolute Basophils 0.0 10^3/cmm (0.0-0.2) 02/24/23 01:56 Platelet Estimate Normal (Normal) 02/24/23 01:56 Giant Platelets 1+ H 02/24/23 01:56 Amos Cells Trace 02/24/23 01:56 Sodium 136 mmol/L (136-145) 02/24/23 01:56 Potassium 3.7 mmol/L (3.5-5.1) 02/24/23 01:56 Chloride 99 mmol/L (98-107) 02/24/23 01:56 Carbon Dioxide 22 mmol/L (22-29) 02/24/23 01:56 Anion Gap 18.7 (5-19) 02/24/23 01:56 BUN 9 mg/dL (8-23) 02/24/23 01:56 Creatinine 1.3 mg/dL (0.5-0.9) H 02/24/23 01:56 GFR Calculation 41.4 mL/min (90-130) L 02/24/23 01:56 Glucose 99 mg/dL (65-115) 02/24/23 01:56 Calculated Osmolality 281 mOsm/kg (285-295) L 02/24/23 01:56 Calcium 9.3 mg/dL (8.5-10.5) 02/24/23 01:56 Total Bilirubin 0.8 mg/dL (0.15-1.2) 02/24/23 01:56 AST 27 U/L (0-32) 02/24/23 01:56 ALT 19 U/L (0-33) 02/24/23 01:56 Alkaline Phosphatase 149 U/L (35-105) H 02/24/23 01:56 Troponin T Baseline 27 ng/L (0-10) H 02/24/23 01:56 Troponin T 120 Minute 28.46 ng/L (0-10) H 02/24/23 03:55 Delta Troponin T 1.46 ABS# (0-10) 02/24/23 03:55 Total Protein 6.3 g/dL (6.6-8.7) L 02/24/23 01:56 Albumin 3.5 g/dL (3.5-5.2) 02/24/23 01:56 Globulin 2.8 g/dL (1.3-4.6) 02/24/23 01:56 Urine Color Yellow (Yellow) 02/24/23 04:00 Urine Appearance Clear (CLEAR) 02/24/23 04:00 Urine pH 5 (5-7) 02/24/23 04:00 Ur Specific Pine 1.010 (1.005-1.030) 02/24/23 04:00 Urine Protein Neg (Negative) 02/24/23 04:00 Urine Glucose (UA) Norm (Normal) 02/24/23 04:00 Urine Ketones Negative (Negative) 02/24/23 04:00 Urine Blood Neg (Negative) 02/24/23 04:00 Urine Nitrate Negative (Negative) 02/24/23 04:00 Urine Bilirubin Neg (Negative) 02/24/23 04:00 Urine Urobilinogen Norm mg/dL (Negative) 02/24/23 04:00 Ur Leukocyte Esterase Negative (Negative) 02/24/23 04:00 Discharge Plan Discharge Patient Disposition: Home Clinical Impression: Closed compression fracture of body of L1 vertebra Condition: Stable Prescriptions: Continued hydrocodone-acetaminophen 5-325 mg tablet 1 tab PO Q6H PRN (Reason: pain) Qty: 10 0RF No Action propranolol 10 mg tablet 20 mg PO TID diltiazem HCl 240 mg capsule,extended release 24 hr 240 mg PO DAILY metoprolol succinate 25 mg tablet extended release 24 hr 25 mg PO DAILY atorvastatin 40 mg tablet 40 mg PO DAILY potassium chloride 10 mEq capsule, extended release 10 meq PO DAILY vitamin B complex [B Complex-Vitamin B12] Tablet 1 tab PO DAILY methylprednisolone acetate [Depo-Medrol] 80 mg/mL suspension 80 mg Infiltration ONCE Qty: 1 0RF Eliquis 5 mg tablet 5 mg PO BID Benlysta 200 mg/mL auto-injector 200 mg SUBCUT Q7D Qty: 4 3RF tramadol 50 mg tablet 50 mg PO TID PRN (Reason: pain) 7 Days Qty: 21 0RF gabapentin 300 mg capsule See Rx Instructions .ROUTE .COMPLEX Qty: 120 0RF Dose Instruction: TAKE 1 CAPSULE BY MOUTH EVERY MORNING, NOON AND 2 CAPSULES EVERY DAY AT BEDTIME Rx Instructions: TAKE 1 CAPSULE BY MOUTH EVERY MORNING, NOON AND 2 CAPSULES EVERY DAY AT BEDTIME escitalopram oxalate 20 mg tablet See Rx Instructions .ROUTE .COMPLEX Qty: 90 1RF Dose Instruction: TAKE 1 TABLET BY MOUTH DAILY Rx Instructions: TAKE 1 TABLET BY MOUTH DAILY cyclobenzaprine 10 mg tablet See Rx Instructions .ROUTE .COMPLEX Qty: 60 0RF Dose Instruction: TAKE ONE TO TWO TABLETS BY MOUTH EVERY DAY AT BEDTIME Rx Instructions: TAKE ONE TO TWO TABLETS BY MOUTH EVERY DAY AT BEDTIME Anoro Ellipta 62.5-25 mcg/actuation blister with device 1 inh inhalation DAILY Qty: 60 3RF Discharge Orders: Discharge ED (Routine); Ordered 02/24/23 Ordered By: Tim Armijo Referrals: Stephanie iPna DO [Primary Care Provider] - Patient Instructions: Vertebral Compression Fracture (ED) Activity Restrictions/Additional Instructions: Follow-up with your doctor next week. Case management will make an appointment for you for follow-up with spine surgery, as you have seen them prior.. There are times when procedures can be done to stabilize compression fractures, although not all the time. Return for worsening pain despite treatment, worsening weakness, other concerning symptoms. Coding Level of Care Code ED Assembler Bonding for Adelia Wynn
[2023-02-24 01:44] VITALS: BP 119/55; PULSE 68; RESP 16; TEMP 36.7; O2SAT 96
--- NOTE | 2023-02-24 01:48 | CTR_ITS ---
PROCEDURE INFORMATION: Exam: CT Lumbar Spine Without Contrast Exam date and time: 02/24/2023 2:08 AM Age: 62 years old Clinical indication: Injury or trauma; Crushing; Patient HX: Weakness, frequent falls, severe low back pain; Additional info: Fall, concern for fracture TECHNIQUE: Imaging protocol: Computed tomography of the lumbar spine without contrast. Radiation optimization: All CT scans at this facility use at least one of these dose optimization techniques: automated exposure control; mA and/or kV adjustment per patient size (includes targeted exams where dose is matched to clinical indication); or iterative reconstruction. REPORTING DATA: Count of CT and Cardiac NM exams in prior 12 months: This patient has received 5 known CTs and 0 known cardiac nuclear medicine studies in the 12 months prior to the current study. COMPARISON: CT lumbar spine w con [id number] 02/08/2023 5:55 PM RADIATION DOSE METRICS: Total DLP (mGy-cm): 1355.41 FINDINGS: Bones/joints: There is further compression of the superior endplate L1 vertebral body previously measuring approximately 23.3 mm, today measuring 20.6 mm anteriorly. Soft tissues: Unremarkable. CT/CT lumbar spine wo con* [id number] IMPRESSION: There is further compression of the superior endplate L1 vertebral body compared 02/08/2023.
--- NOTE | 2023-02-24 01:56 | ECG_ITS ---
[facility] Test Date: 2023-02-24 Pat Name: Verónica Pat Department: Room: Gender: Female Dip Stand Loader: : 1960 Requested By: Brett Ng Order Number: [id number] Margarito MD: Jhonathan Mendoza M.D. Measurements Intervals [place] Rate: 66 P: 29 RI: 133 QRS: 34 QRSD: 98 T: 46 QT: 446 QTc: 470 Interpretive Statements SINUS RHYTHM LOW QRS VOLTAGE IN PRECORDIAL LEADS [QRS DEFLECTION < 1.0 mV IN CHEST LEADS] Compared to ECG 11/27/2022 21:23:08 Sinus arrhythmia no longer present Electronically Signed On 02-24-2023 7:12:19 CDT by Jhonathan Mendoza M.D. [id number]
--- NOTE | 2023-02-24 02:07 | PC.NURSE ---
PT TO CT SCAN.
[2023-02-24 02:16] LABS: Hematocrit 35.7 % (37.0-47.0); Hemoglobin 11.2 g/dL (11.5-15.3); Mean Corpuscular HGB Conc 31.4 g/dL (30.0-36.0); Mean Corpuscular Hemoglobin 28.9 pg (28.0-34.0); Mean Platelet Volume 13.4 fL (7.4-10.4); Platelet Count 101 10^3/cmm (130-400); Red Blood Count 3.88 10^6/uL (4.1-5.3); Red Cell Distribution Width 14.7 % (12.1-15.1); White Blood Count 2.7 10^3/uL (4.0-10.0)
[2023-02-24 02:29] VITALS: BP 117/63; PULSE 60; RESP 16; O2SAT 96
[2023-02-24 02:34] LABS: Troponin(5th) Baseline 27 ng/L (0-10)
[2023-02-24 02:36] LABS: Alanine Aminotransferase 19 U/L (0-33); Albumin Level 3.5 g/dL (3.5-5.2); Alkaline Phosphatase 149 U/L (35-105); Anion Gap 18.7 (5-19); Aspartate Amino Transferase 27 U/L (0-32); Blood Urea Nitrogen 9 mg/dL (8-23); Calcium 9.3 mg/dL (8.5-10.5); Carbon Dioxide 22 mmol/L (22-29); Chloride 99 mmol/L (98-107); Globulin 2.8 g/dL (1.3-4.6); Glomerular Filtration Rate 41.4 mL/min (90-130); Glucose 99 mg/dL (65-115); Osmolality Calculated 281 mOsm/kg (285-295); Potassium 3.7 mmol/L (3.5-5.1); Sodium 136 mmol/L (136-145); Total Bilirubin 0.8 mg/dL (0.15-1.2); Total Protein 6.3 g/dL (6.6-8.7)
[2023-02-24 02:56] LABS: Absolute Neutrophil 1.8 10^3/cmm (1.4-6.5); Absolute Segmented Neutrophil 1.8 10/cmm (1.6-7.1); Eosinophils 1 %; Lymphocytes 10 %; Lymphocytes Absolute 0.3 10^3/cmm (1.2-3.4); Monocytes Absolute 0.6 10^3/cmm (0.1-0.6); Segmented Neutrophils 66 %; Total Cells Counted 100 (0-100)
[2023-02-24 02:57] LABS: Giant Platelets 1+; Platelet Estimate Normal (Normal)
[2023-02-24 02:59] LABS: Burr Cells Trace
[2023-02-24 04:31] LABS: Troponin 5 2HR 28.46 ng/L (0-10)
[2023-02-24 04:36] LABS: Add Urine Microscopic? NO; Charge for UA Resulting for Rev
[2023-02-24 04:36] LABS: Troponin 5 2HR Delta 1.46 ABS# (0-10)
[2023-02-24 04:42] LABS: Bilirubin Urine Neg (Negative); Blood Urine Neg (Negative); Glucose Urine UA Norm (Normal); Ketones Urine Negative (Negative); Leukocyte Esterase Urine Negative (Negative); Nitrate Urine Negative (Negative); Protein Urine Neg (Negative); Urine Appearance Clear (CLEAR); Urine Color Yellow (Yellow); Urobilinogen Urine Norm (Negative); pH Urine 5 (5-7)
[2023-02-24 05:42] VITALS: RESP 18; O2SAT 98
[2023-02-24] MEDS: morphine 4 mg/mL SDV 1 mL IVP (05:42)
[2023-02-24 05:43] VITALS: PULSE 80; RESP 18; O2SAT 98
--- NOTE | 2023-02-26 10:09 | DCPLANNER ---
Addendum entered by Seble Colmenares 03/07/23 09:04: Patient had a follow up appointment scheduled with ortho - patient did attend appointment Addendum entered by Seble Colmenares 02/27/23 10:27: Patient has a follow up appointment scheduled for , March 01, 2023 at 1:30 with Didier at ortho. Original Note: financial aid manager had message to schedule a follow up appointment for patient with ortho. financial aid manager sent patients information to the front office staff at ortho. Patients information will be printed and reviewed. Clinic will call patient with appointment information.
== END 2023-02-24 05:45 | disposition home or self-care (01) ==
PROVIDERS: Nurse Practitioner Family; Emergency Provider Emergency Medicine; PCP Family Medicine
DX: S32.010A Wedge compression fracture of first lumbar vertebra, initial encounter for closed fracture (principal); Z79.01 Long term (current) use of anticoagulants; Z87.891 Personal history of nicotine dependence; M32.9 Systemic lupus erythematosus, unspecified; I12.9 Hypertensive chronic kidney disease with stage 1 through stage 4 chronic kidney disease, or unspecified chronic kidney disease; N18.9 Chronic kidney disease, unspecified; Z86.73 Personal history of transient ischemic attack (TIA), and cerebral infarction without residual deficits; W19.XXXA Unspecified fall, initial encounter
CPT/HCPCS: 70450; 71045; 72131; 80053; 81003; 84484; 85007; 85025; 93005; 96374; 99285; J2270

== ENCOUNTER → 2023-03-06 10:52 | Outpatient (BNVA) | payer MEDICARE, MEDICAID, SELFPAY | PROVIDERS: PCP Family Medicine; Visit Provider Nurse Practitioner Family | DX: M17.12 Unilateral primary osteoarthritis, left knee (principal) | CPT/HCPCS: 20610; 99213; J7318 ==

== ENCOUNTER → 2023-03-15 10:27 | Outpatient (BNVA) | payer MEDICARE, MEDICAID, SELFPAY | PROVIDERS: PCP Family Medicine; Visit Provider Internal Medicine Pulmonary Disease | DX: J98.4 Other disorders of lung (principal); Z79.899 Other long term (current) drug therapy; K75.4 Autoimmune hepatitis; K74.69 Other cirrhosis of liver; Z86.711 Personal history of pulmonary embolism; I50.30 Unspecified diastolic (congestive) heart failure; M32.9 Systemic lupus erythematosus, unspecified; Z79.01 Long term (current) use of anticoagulants; Z87.891 Personal history of nicotine dependence | CPT/HCPCS: 99214 ==

== ENCOUNTER → 2023-03-20 13:22 | Outpatient (BNVA) | payer MEDICARE, MEDICAID, SELFPAY | PROVIDERS: PCP Family Medicine; Visit Provider Internal Medicine Rheumatology | DX: M17.0 Bilateral primary osteoarthritis of knee (principal); M11.262 Other chondrocalcinosis, left knee; M32.9 Systemic lupus erythematosus, unspecified; M79.7 Fibromyalgia; Z79.899 Other long term (current) drug therapy | CPT/HCPCS: 73562; 99214 ==

== ENCOUNTER 2023-03-22 16:27 | Emergency (ER) | payer MEDICARE, MEDICAID, SELFPAY ==
[2023-03-22 16:30] VITALS: PULSE 73; RESP 14; TEMP 36.4; BMI 38.7
--- NOTE | 2023-03-22 18:26 | XRR_ITS ---
PROCEDURE INFORMATION: Exam: XR Left Elbow Exam date and time: 03/22/2023 6:54 PM Age: 62 years old Clinical indication: Injury or trauma; Fall TECHNIQUE: Imaging protocol: Radiologic exam of the left elbow. Views: 1 or 2 views. COMPARISON: No relevant prior studies available. FINDINGS: Bones/joints: Changes consistent with a previous fracture repair in the distal diaphysis of the left humerus with 2 fixation screws. No evidence for loosening of the surgical hardware. The lateral image is oblique, which can limit evaluation. T there is an irregularity at the head of the left radius with a round ossified density posterior to the elbow on the lateral image, a radial head fracture cannot be ruled out. No dislocation. Normal bone mineralization. Moderate to severe degenerative changes at the left elbow. Soft tissues: No soft tissue swelling. No radiopaque foreign body. XR/XR elbow LT 2V [id number] IMPRESSION: 1. The lateral image is oblique, which can limit evaluation. T there is an irregularity at the head of the left radius with a round ossified density posterior to the elbow on the lateral image, a radial head fracture cannot be ruled out. CT scan may be beneficial for further evaluation. 2. Moderate to severe degenerative changes at the left elbow. 3. Incidental/nonacute findings are listed in the report.
--- NOTE | 2023-03-22 18:26 | CTR_ITS ---
PROCEDURE INFORMATION: Exam: CT Head Without Contrast Exam date and time: 03/22/2023 6:47 PM Age: 62 years old Clinical indication: Injury or trauma; Fall; Blunt trauma (contusions or hematomas); Additional info: Fall and hit head on anticoagulant TECHNIQUE: Imaging protocol: Computed tomography of the head without contrast. Sagittal and coronal reformatted images were created and reviewed. Radiation optimization: All CT scans at this facility use at least one of these dose optimization techniques: automated exposure control; mA and/or kV adjustment per patient size (includes targeted exams where dose is matched to clinical indication); or iterative reconstruction. REPORTING DATA: Count of CT and Cardiac NM exams in prior 12 months: This patient has received 6 known CTs and 0 known cardiac nuclear medicine studies in the 12 months prior to the current study. COMPARISON: CT head wo con* [id number] 02/24/2023 2:05 AM RADIATION DOSE METRICS: Total DLP (mGy-cm): 1039 FINDINGS: Brain: No acute intracranial hemorrhage. No acute infarct. No intra-axial or extra-axial masses. Rob-white matter differentiation is preserved. No cerebral edema. No extra-axial fluid collections. No midline shift. No evidence for Chiari 1 malformation. Stable mild atrophy of the brain parenchyma. Stable mildly decreased attenuation in the deep white matter, consistent with mild chronic microangiopathic change. 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 Cerebral ventricles: No hydrocephalus. Paranasal sinuses: Visualized paranasal sinuses are clear. Mastoid air cells: Visualized mastoid air cells are clear. Orbital cavities: Globes and lenses, extraocular muscles, and optic nerves are intact bilaterally. No acute intraorbital abnormality. Nasal cavity: Stable moderate right nasal septal deviation. Bones/joints: Stable changes consistent with a previous left parieto-occipital craniotomy. Soft tissues: No acute abnormality of the extracranial soft tissues. CT/CT head wo con* [id number] IMPRESSION: 1. No acute abnormality of the brain. 2. Stable mild atrophy of the brain parenchyma. 3. Stable mild chronic white matter microangiopathic change. 4. 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 5. Incidental/nonacute findings are listed in the report.
--- NOTE | 2023-03-22 18:26 | XRR_ITS ---
PROCEDURE INFORMATION: Exam: XR Right Ribs with PA Chest Exam date and time: 03/22/2023 6:54 PM Age: 62 years old Clinical indication: Injury or trauma; Fall; Rib area; Blunt trauma (contusions or hematomas) TECHNIQUE: Imaging protocol: Radiologic exam of the right ribs with PA chest. Views: 3 views COMPARISON: CR (CHEST, ) 02/24/2023 2:17 AM FINDINGS: Lungs: Lungs are clear bilaterally. Pleural spaces: No pleural effusion. No pneumothorax. Heart/Mediastinum: Stable mild enlargement of the cardiac silhouette. Mediastinal contours are unremarkable. A calcification in the right upper quadrant may represent a calcified lymph node or possibly an enterolith. Vasculature: Stable vascular calcifications in the aorta. Bones/joints: Multilevel degenerative changes of varying severity in the visualized spine. No acute fracture. No acute fracture. No dislocation. Normal bone mineralization. Soft tissues: No soft tissue swelling. No radiopaque foreign body. Organs: Surgical clips in the right upper quadrant consistent with a previous cholecystectomy. XR/XR ribs RT mn 3V w CXR1V [id number] IMPRESSION: 1. No acute cardiopulmonary process. 2. No acute fracture. 3. Incidental/nonacute findings are listed in the report. 4. CT scan of the chest with contrast would be recommended if there is continuing clinical concern for thoracic injury.
--- NOTE | 2023-03-22 18:26 | XRR_ITS ---
PROCEDURE INFORMATION: Exam: XR Left Knee Exam date and time: 03/22/2023 6:54 PM Age: 62 years old Clinical indication: Pain; Knee; Left; Prior surgery; Additional info: Fall TECHNIQUE: Imaging protocol: Radiologic exam of the left knee. Views: 3 views. COMPARISON: CT knee LT wo con* [id number] 11/18/2021 3:33 PM FINDINGS: Bones/joints: No acute fracture. No dislocation. Normal bone mineralization. Stable postsurgical changes consistent with a prior tibial fracture repair. Alignment is anatomic. No evidence for loosening of the visualized surgical hardware. Near complete loss of medial compartment and patella femoral joint space height. Large osteophytes at all 3 compartments of the left knee. Findings are stable. Small left suprapatellar knee joint effusion. Soft tissues: No soft tissue swelling. No radiopaque foreign body. XR/XR knee LT 3V* [id number] IMPRESSION: 1. No acute fracture of the left knee. Followup imaging recommended in 7-14 days if clinical concern for fracture persists. 2. Small left suprapatellar knee joint effusion. 3. Incidental/nonacute findings are listed in the report.
--- NOTE | 2023-03-22 19:38 | CTR_ITS ---
PROCEDURE INFORMATION: Exam: CT Left Upper Extremity Without Contrast, Elbow Exam date and time: 03/22/2023 8:16 PM Age: 62 years old Clinical indication: Pain; Elbow; Left; Additional info: Fall and questionable radial head fracture TECHNIQUE: Imaging protocol: Computed tomography of the left upper extremity without contrast. Exam focused on the elbow. Imaging Protocol: Sagittal and coronal reformatted images were created and reviewed. Radiation optimization: All CT scans at this facility use at least one of these dose optimization techniques: automated exposure control; mA and/or kV adjustment per patient size (includes targeted exams where dose is matched to clinical indication); or iterative reconstruction. REPORTING DATA: Count of CT and Cardiac NM exams in prior 12 months: This patient has received 6 known CTs and 0 known cardiac nuclear medicine studies in the 12 months prior to the current study. COMPARISON: CR (UP EX, ) 03/22/2023 6:54 PM RADIATION DOSE METRICS: Total DLP (mGy-cm): 409 FINDINGS: Bones/joints: Stable changes consistent with a fracture repair of the distal diaphysis of the left humerus. Two fixation screws in the distal left humerus, no evidence for loosening of the surgical hardware. No acute fracture. No dislocation. Normal bone mineralization. No joint effusion. There is a deformity of the left radial head suspicious for old, healed trauma. There are multiple ossified intra-articular loose bodies in the elbow joint anterior to the distal humerus, anterior to the radius, and lateral to the olecranon process of the ulna. These findings likely correspond to those noted on the prior plain radiographs. Stable marked degenerative changes at the left elbow. Soft tissues: No soft tissue swelling. No radiopaque foreign body. Vasculature: There is IV tubing extending into the left basilic vein in the left upper arm. CT/CT elbow LT wo con* [id number] IMPRESSION: 1. No acute fracture. 2. There is a deformity of the left radial head suspicious for old, healed trauma. 3. There are multiple ossified intra-articular loose bodies in the elbow joint anterior to the distal humerus, anterior to the radius, and lateral to the olecranon process of the ulna. These findings likely correspond to those noted on the prior plain radiographs. 4. Stable marked degenerative changes at the left elbow. 5. Incidental/nonacute findings are listed in the report.
--- NOTE | 2023-03-22 19:38 | CTR_ITS ---
PROCEDURE INFORMATION: Exam: CT Chest With Contrast; Diagnostic Exam date and time: 03/22/2023 8:21 PM Age: 62 years old Clinical indication: Injury or trauma; Fall; Generalized; Blunt trauma (contusions or hematomas) TECHNIQUE: Imaging protocol: Diagnostic computed tomography of the chest with contrast. Radiation optimization: All CT scans at this facility use at least one of these dose optimization techniques: automated exposure control; mA and/or kV adjustment per patient size (includes targeted exams where dose is matched to clinical indication); or iterative reconstruction. Contrast material: OMNI 350; Contrast volume: 100 ml; Contrast route: INTRAVENOUS (IV); REPORTING DATA: Count of CT and Cardiac NM exams in prior 12 months: This patient has received 6 known CTs and 0 known cardiac nuclear medicine studies in the 12 months prior to the current study. COMPARISON: CT angio chest PE protcl [id number] 01/19/2022 6:34 PM RADIATION DOSE METRICS: Total DLP (mGy-cm): 1457 FINDINGS: Trachea: Tracheobronchial structures are patent. Lungs: There is linear scarring in the right and left lower lobes. Resolution of a pulmonary infarct in the right lung. No focal consolidation. No pulmonary edema. Pleural spaces: No pneumothorax. No pleural effusion. Heart: Stable mild enlargement of the heart. Esophagus: The esophagus is unremarkable. Mediastinal space: No mediastinal hematoma. No pneumomediastinum. Lymph nodes: No lymphadenopathy. Vasculature: Stable mild atherosclerotic changes in the visualized arteries. No evidence for aortic aneurysm or aortic dissection. No extravasation of contrast from the thoracic vessels. This study is not protocoled to evaluate for pulmonary emboli. Bilateral pulmonary emboli noted on the prior study appear to have essentially resolved however. Bones/joints: [id number] multilevel degenerative changes in the visualized spine. No acute fracture. Soft tissues: No acute abnormality in the extrathoracic soft tissues. PROCEDURE INFORMATION: Exam: CT Abdomen And Pelvis With Contrast Exam date and time: 03/22/2023 8:21 PM Age: 62 years old Clinical indication: Injury or trauma; Fall; Generalized; Blunt trauma (contusions or hematomas) TECHNIQUE: Imaging protocol: Computed tomography of the abdomen and pelvis with contrast. Radiation optimization: All CT scans at this facility use at least one of these dose optimization techniques: automated exposure control; mA and/or kV adjustment per patient size (includes targeted exams where dose is matched to clinical indication); or iterative reconstruction. Contrast material: OMNI 350; Contrast volume: 100 ml; Contrast route: INTRAVENOUS (IV); REPORTING DATA: Count of CT and Cardiac NM exams in prior 12 months: This patient has received 6 known CTs and 0 known cardiac nuclear medicine studies in the 12 months prior to the current study. COMPARISON: CT abdomen pelvis w con* [id number] 11/27/2022 10:47 PM RADIATION DOSE METRICS: Total DLP (mGy-cm): 1457 FINDINGS: Liver: Stable nodular contour of the liver with hypertrophy of the left hepatic lobe. Gallbladder and bile ducts: Stable findings consistent with a previous cholecystectomy. No biliary ductal dilatation. Pancreas: The pancreas is unremarkable. No pancreatic ductal dilatation. Spleen: Stable mild enlargement of the spleen measuring 16.3 cm in length (series 12, image 27). Adrenal glands: The right and left adrenal glands are unremarkable. Kidneys and ureters: The right and left kidneys are unremarkable. The right and left ureters are unremarkable. Stomach and bowel: Scattered diverticula in the sigmoid colon. No evidence for diverticulitis. No acute abnormality in the small bowel. Ingested contents in the stomach. Appendix: The appendix is visualized and is unremarkable. No findings to suggest acute appendicitis. Intraperitoneal space: No free intraperitoneal air. No ascites. No loculated fluid collections to suggest an abscess. Retroperitoneal space: Stable mild inflammatory changes in the periaortic region of uncertain clinical significance. Vasculature: Mild atherosclerotic changes in the visualized arteries. No evidence for aortic aneurysm or aortic dissection. Hepatic veins, portal veins, splenic vein, and SMV are patent. No extravasation of contrast from the abdominopelvic vessels. Stable small caliber varices in the upper abdomen. Lymph nodes: No lymphadenopathy. Urinary bladder: The bladder is unremarkable. Reproductive: The uterus is unremarkable. Calcification in the right ovary, possibly due to sequela from a prior involuting cyst. The left ovary is unremarkable. Bones/joints: Degenerative changes in the spine, sacroiliac joints, and hips. Acute mild compression fracture of the L1 vertebral body. No subluxation. No retropulsed bone. Soft tissues: No acute abnormality in the extra-abdominal soft tissues. Small paravertebral soft tissue hematoma at L1. CT/CT chest abdpel w/*[id number] IMPRESSION: 1. No acute cardiopulmonary process. 2. No evidence for acute traumatic injury in the chest. 3. Resolution of a pulmonary infarct in the right lung. 4. This study is not protocoled to evaluate for pulmonary emboli. Bilateral pulmonary emboli noted on the prior study appear to have essentially resolved however. 5. Incidental/nonacute findings are listed in the report. IMPRESSION: 1. Acute mild compression fracture of the L1 vertebral body. No subluxation. No retropulsed bone. Small paravertebral soft tissue hematoma at L1. 2. Scattered diverticula in the sigmoid colon. No evidence for diverticulitis. 3. Stable mild inflammatory changes in the periaortic region of uncertain clinical significance. 4. Stable cirrhotic changes in the liver and associated findings consistent with mild portal hypertension with mild splenomegaly and small caliber varices. 5. Incidental/nonacute findings are listed in the report.
[2023-03-22] MEDS: iohexol 350 mg/mL 500 mL Btl (per mL) IV (20:15)
--- NOTE | 2023-03-23 02:25 | ED_ITS ---
HPI - Fall General: Chief Complaint: Fall Stated Complaint: FALL Time Seen by Provider: 03/22/23 18:13 History of Present Illness: Patient is in today after a fall. She reports that she uses a walker to ambulate at home and she was leaning forward to get boxes and did fall forward o nto her head. She reports that she skinned up her right elbow but really hit her left elbow on the ground and it is very painful. She reports pain on her right side which she thinks hit the boxes. She reports pain to her left knee. She reports a headache and slight nausea but no vomiting. She does offer that she is on blood thinning medications. He also offers that she is being currently worked up for a low back spinal fracture. Associated symptoms-after fall: Reports headache(s); Denies abdominal pain or chest pain Review of Systems Const: Denies: fever(s) or chills Card: Denies: chest pain or palpitations Resp: Denies: dyspnea, productive cough or non-productive cough GI: Reports: nausea; Denies: abdominal pain or vomiting Musc: Reports: extremity pain and joint pain Neuro: Reports: headache(s); Denies: numbness in extremities or weakness in extremities PFSH ED PFSH: Medical History Anxiety Autoimmune hepatitis Chronic migraine Cirrhosis of liver CKD (chronic kidney disease) Cutaneous lupus erythematosus Degenerative joint disease of cervical spine Fibromyalgia Hypertension Left carotid artery occlusion SLE (systemic lupus erythematosus) Stenosis of cervical spine with myelopathy Vitamin D deficiency Surgical History H/O brain surgery (2008) Occipital craniotomy for resection of acoustic neuroma History of cholecystectomy History of cranial reconstruction (2009) History of surgery on arm (2010) Open reduction for left arm fracture History of tubal ligation History of vascular surgery (12/2021) Thrombectomy for pulmonary embolism Family History Mother Cancer Breast cancer Brother Chronic kidney disease (CKD) Other CAD (coronary artery disease) Clotting disorder Hyperlipidemia Hypertension Stroke Denies family history of Rheumatoid arthritis Diabetes Lupus Dementia Psychiatric illness Suicide Anesthesia complication Bleeding disorder Lung disease Social History Smoking and tobacco status: former smoker Quit status (tobacco): has quit using tobacco Year quit tobacco: 1993 Former quit date comment: Hx of 1 PPD x 15 Years Second hand smoke exposure: No Smoking risk assessment/counseling performed?: No Alcohol intake: never Counseling given: No Substance/Drug Use: never Counseling given: No Lives independently: Yes Household members: none Marital status: Current occupational status: unemployed Do you think of yourself as: Straight/Heterosexual Current gender identity: Female Physical Exam Const: COMMON NORMALS: no acute distress, patient oriented x3 and alert OTHER: Patient is hard of hearing. She is in no acute distress, but she is sitting in the chair in the vertical flow. She is frail appearing on a baseline. Eye: COMMON NORMALS: Equal, round and reactive pupils present, EOMs intact bilaterally and conjunctivae normal CONJUNCTIVA: Yes conjunctivae normal PUPIL: Yes Equal, round and reactive pupils present Neck/C-Spine: COMMON NORMALS: full ROM, no lymphadenopathy, supple and no JVD Resp: COMMON NORMALS: normal respiratory effort, No use of accessory muscles and clear to auscultation bilaterally AUSCULTATION: clear to auscultation bilaterally Cardio: COMMON NORMALS: no JVD, regular rate, regular rhythm, S1 normal heart sound present, S2 normal heart sound present and No murmurs present (Cardio) RATE: regular rate RHYTHM: regular rhythm HEART SOUNDS: S1 normal heart sound present and S2 normal heart sound present GI: COMMON NORMALS: Normal to inspection, nondistended, normoactive bowel sounds present, Soft to palpation and non-tender PALPATION: Yes Soft to palpation Extremity: NARRATIVE EXTREMITY EXAM: There is a small superficial skin abrasion to the right elbow. Patient has full free range of motion of the right elbow. Left elbow patient is able to extend and flex however reports pain with extension. No obvious bony deformities noted either elbow. Left knee with moderate swelling tenderness to palpation lateral collateral ligament. No obvious bony deformity appreciated. Patient has some bruising on the right side lower rib cage with no obvious bony deformity appreciated. Neuro: COMMON NORMALS: patient oriented x3 SENSORIUM/ORIENTATION: Yes alert Course Vital Signs: Vital signs: Vital Signs Temperature 97.5 F L 03/22/23 16:30 Pulse Rate 73 03/22/23 16:30 Respiratory Rate 14 03/22/23 16:30 Oxygen Delivery Me thod Room Air 04/27/23 16:30 MDM - Fall Medical Decision Making Given the patient is on blood thinners and did fall and hit her head CT head without contrast was done did not show any acute abnormality of the brain. There were other chronic findings noted that appeared stable. X-ray left elbow, right ribs, and left knee completed. Left elbow had a concern for radial head irregularity. CT scan was ordered which shows no acute fracture however chronic findings were noted. Patient reports previous fracture. X-ray ribs did not show any acute fracture. Patient has moderate tenderness with mild bruising to the right side lower rib cage so CT chest abdomen and pelvis is done which does not show any acute findings but other chronic incidental findings noted. X-ray of left knee shows joint effusion with arthritic changes no acute findings. I discussed all imaging results with patient and family. Patient verbalized understanding. She is discharged to home. Sergio wrap to the knee to provide supp ort. Discussed conservative treatments at home. Follow-up with primary care provider next week for reevaluation and review of all imaging given the numerous chronic findings. Return to the ER as needed for new or worsening symptoms Lab Data Radiology Impressions Elbow X-Ray 03/22/23 18:26 IMPRESSION: 1. The lateral image is oblique, which can limit evaluation. T there is an irregularity at the head of the left radius with a round ossified density posterior to the elbow on the lateral image, a radial head fracture cannot be ruled out. CT scan may be beneficial for further evaluation. 2. Moderate to severe degenerative changes at the left elbow. 3. Incidental/nonacute findings are listed in the report. Head CT 03/22/23 18:26 IMPRESSION: 1. No acute abnormality of the brain. 2. Stable mild atrophy of the brain parenchyma. 3. Stable mild chronic white matter microangiopathic change. 4. 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 5. Incidental/nonacute findings are listed in the report. Knee X-Ray 03/22/23 18:26 IMPRESSION: 1. No acute fracture of the left knee. Followup imaging recommended in 7-14 days if clinical concern for fracture persists. 2. Small left suprapatellar knee joint effusion. 3. Incidental/nonacute findings are listed in the report. Ribs X-Ray 03/22/23 18:26 IMPRESSION: 1. No acute cardiopulmonary process. 2. No acute fracture. 3. Incidental/nonacute findings are listed in the report. 4. CT scan of the chest with contrast would be recommended if there is continuing clinical concern for thoracic injury. Chest/Abdomen/Pelvis CT 03/22/23 19:38 IMPRESSION: 1. No acute cardiopulmonary process. 2. No evidence for acute traumatic injury in the chest. 3. Resolution of a pulmonary infarct in the right lung. 4. This study is not protocoled to evaluate for pulmonary emboli. Bilateral pulmonary emboli noted on the prior study appear to have essentially resolved however. 5. Incidental/nonacute findings are listed in the report. IMPRESSION: 1. Acute mild compression fracture of the L1 vertebral body. No subluxation. No retropulsed bone. Small paravertebral soft tissue hematoma at L1. 2. Scattered diverticula in the sigmoid colon. No evidence for diverticulitis. 3. Stable mild inflammatory changes in the periaortic region of uncertain clinical significance. 4. Stable cirrhotic changes in the liver and associated findings consistent with mild portal hypertension with mild splenomegaly and small caliber varices. 5. Incidental/nonacute findings are listed in the report. Elbow CT 03/22/23 19:38 IMPRESSION: 1. No acute fracture. 2. There is a deformity of the left radial head suspicious for old, healed trauma. 3. There are multiple ossified intra-articular loose bodies in the elbow joint anterior to the distal humerus, anterior to the radius, and lateral to the olecranon process of the ulna. These findings likely correspond to those noted on the prior plain radiographs. 4. Stable marked degenerative changes at the left elbow. 5. Incidental/nonacute findings are listed in the report. Discharge Plan Discharge Patient Disposition: Home Clinical Impression: Fall, Contusion of head, Contusion of elbow, left, Contusion of left knee, Contusion of right elbow Condition: Stable Prescriptions: No Action diltiazem HCl 240 mg capsule,extended release 24 hr 240 mg PO DAILY atorvastatin 40 mg tablet 40 mg PO DAILY potassium chloride 10 mEq capsule, extended release 10 meq PO DAILY vitamin B complex [B Complex-Vitamin B12] Tablet 1 tab PO DAILY methylprednisolone acetate [Depo-Medrol] 80 mg/mL suspension 80 mg Infiltration ONCE Qty: 1 0RF Eliquis 5 mg tablet 5 mg PO BID carvedilol 3.125 mg tablet 3.125 mg PO BID Rx Instructions: must administer with a meal/food calcium carbonate [Calcium 600] 600 mg calcium (1,500 mg) tablet 600 mg PO DAILY furosemide 20 mg tablet 20 mg PO DAILY Benlysta 200 mg/mL auto-injector 200 mg SUBCUT Q7D Qty: 4 3RF gabapentin 300 mg capsule See Rx Instructions .ROUTE .COMPLEX Qty: 120 0RF Dose Instruction: TAKE 1 CAPSULE BY MOUTH EVERY MORNING, NOON AND 2 CAPSULES EVERY DAY AT BEDTIME Rx Instructions: TAKE 1 CAPSULE BY MOUTH EVERY MORNING, NOON AND 2 CAPSULES EVERY DAY AT BEDTIME escitalopram oxalate 20 mg tablet See Rx Instructions .ROUTE .COMPLEX Qty: 90 1RF Dose Instruction: TAKE 1 TABLET BY MOUTH DAILY Rx Instructions: TAKE 1 TABLET BY MOUTH DAILY cyclobenzaprine 10 mg tablet See Rx Instructions .ROUTE .COMPLEX Qty: 60 0RF Dose Instruction: TAKE ONE TO TWO TABLETS BY MOUTH EVERY DAY AT BEDTIME Rx Instructions: TAKE ONE TO TWO TABLETS BY MOUTH EVERY DAY AT BEDTIME Anoro Ellipta 62.5-25 mcg/actuation blister with device 1 inh inhalation DAILY Qty: 60 3RF Discharge Orders: Discharge ED (Routine); Ordered 03/22/23 Ordered By: Abi Nunez Referrals: Stephanie Pina DO [Primary Care Provider] - Discharge Diet: Usual diet Discharge Activity: Increase activity as tolerated Activity Restrictions/Additional Instructions: Follow-up with primary care provider next week for reevaluation. Continue follow-up for your spinal fracture as already in the works with your primary care provider. Return to the ER for new or worsening symptoms. Coding Level of Care Code ED Public Health Outreach Worker for Adelia Wynn
== END 2023-03-22 21:52 | disposition home or self-care (01) ==
PROVIDERS: Emergency Provider Nurse Practitioner Family; PCP Family Medicine
DX: S00.93XA Contusion of unspecified part of head, initial encounter (principal); S50.02XA Contusion of left elbow, initial encounter; S50.01XA Contusion of right elbow, initial encounter; S80.02XA Contusion of left knee, initial encounter; W19.XXXA Unspecified fall, initial encounter
CPT/HCPCS: 70450; 71101; 71260; 73070; 73200; 73562; 74177; 99285; Q9967

== ENCOUNTER → 2023-03-29 13:30 | Outpatient (BNVA) | payer MEDICARE, MEDICAID, SELFPAY | PROVIDERS: PCP Family Medicine; Visit Provider Orthopaedic Surgery | DX: S32.010A Wedge compression fracture of first lumbar vertebra, initial encounter for closed fracture (principal); W19.XXXA Unspecified fall, initial encounter | CPT/HCPCS: 99213 ==

== ENCOUNTER 2023-03-29 15:03 | Outpatient (CLI) | payer MEDICARE, MEDICAID, SELFPAY | END 2023-03-29 15:04 | disposition home or self-care (01) | LOC: SPT 15:03 | PROVIDERS: PCP Family Medicine; Visit Provider Orthopaedic Surgery | DX: Z46.89 Encounter for fitting and adjustment of other specified devices (principal); M54.59 Other low back pain | CPT/HCPCS: 97760; L0456 ==

== ENCOUNTER → 2023-05-08 14:05 | Outpatient (BNVA) | payer MEDICARE, MEDICAID, SELFPAY | PROVIDERS: PCP Family Medicine; Visit Provider Orthopaedic Surgery | DX: S32.000A Wedge compression fracture of unspecified lumbar vertebra, initial encounter for closed fracture (principal); X58.XXXA Exposure to other specified factors, initial encounter | CPT/HCPCS: 72100; 99214 ==

== ENCOUNTER 2023-05-15 11:23 | Outpatient (CLI) | payer MEDICARE, MEDICAID, SELFPAY ==
--- NOTE | 2023-05-15 11:45 | MR_ITS ---
WS: [email or web address] MRI LUMBAR SPINE NONCONTRAST HISTORY: fx COMPARISON: Lumbar spine radiographs 05/08/[address] 03/22/2023 TECHNIQUE: Sagittal and axial multisequence imaging is submitted. Slight increase in the lumbar lordosis. Mild anterior wedging of L1 by 10%. There is a very small estela unt of marrow edema along the superior portion of the vertebral body. No retropulsion. No additional marrow edema. Disc spaces and vertebral body heights are well-preserved. Conus terminates normally at L1-2 disc level. L1-L2: Mild annular disc bulging with mild facet and ligamentum flavum hypertrophy. L2-L3: Mild annular disc bulging with a LEFT foraminal disc protrusion. Mild foraminal narrowing. L3-L4: Mild diffuse annular disc bulging with a RIGHT foraminal shallow disc protrusion. Slight conta ct on the exiting RIGHT L3 nerve root. No high-grade stenosis. L4-L5: Mild annular disc bulging with moderate facet arthropathy. Small RIGHT foraminal disc protrusi on. L5-S1: Shallow RIGHT foraminal disc protrusion and vertebral body osteophytosis. Paravertebral soft tissues are negative. Mild enlargement the spleen. MR/MR lumbar spine wo con* [id number] IMPRESSION: 1. Mild anterior compression fracture of L1. Fracture estimated at approximate ly 10%. There is only a small amount of remaining marrow edema within the super ior L1 vertebral body. No retropulsion. 2. No high-grade central or foraminal stenoses. There are a few small disc pro trusions as described above.
== END 2023-05-15 11:24 | disposition home or self-care (01) ==
PROVIDERS: PCP Family Medicine; Visit Provider Orthopaedic Surgery
DX: S32.010A Wedge compression fracture of first lumbar vertebra, initial encounter for closed fracture (principal); X58.XXXA Exposure to other specified factors, initial encounter
CPT/HCPCS: 72148

== ENCOUNTER 2023-06-18 15:32 | Outpatient (CLI) | payer MEDICARE, MEDICAID, SELFPAY ==
--- NOTE | 2023-06-18 16:13 | MR_ITS ---
WS: [email or web address] MRI ABDOMEN with and without CONTRAST. COMPARISON: 03/08/2022 Multiplanar, multisequence imaging is performed with and without contrast. MultiHance 20 mL IV. History: Follow-up cirrhosis. CT abdomen 03/22/2023 and prior MRI 03/08/2022. Technically suboptimal evaluation of the abdomen. There is extensive artifact throughout the abdomen and the entire spleen was not included on this examination. LEFT hepatic lobe and caudate lobe are slightly enlarged. Contours of the liver are slightly irregula r nodule. No mass is identified. Small areas of enhancement would be easily obscured with this amount of motion and artifact. No bile duct dilatation. The gallbladder is been moved. Lobulated spleen measures at least 17 cm in length. The inferior spleen is not included. No ascites. No adrenal mass. Lung bases are clear. This examination is not adequate to evaluate the pancreas. MR/MR abdomen wo/w con* [id number] IMPRESSION: 1. Technical quality of this examination is suboptimal. 2. Mild enlargement of the LEFT lobe of liver and caudate with nodular surface consistent with cirrhosis. 3. No enhancing identifiable masses within the liver. 4. No ascites.
[2023-06-18] MEDS: gadobenate dimeglumine 20 mL vial IV (17:39)
[2023-06-18 18:16] LABS: Basophils % 1.1 %; Eosinophils # 0.1 10^3/uL (0.0-0.8); Eosinophils % 3.8 %; Hematocrit 36.2 % (37.0-47.0); Hemoglobin 11.7 g/dL (11.5-15.3); INR 1.24 (0.8-1.2); Lymphocytes # 0.4 10^3/uL (0.8-4.8); Lymphocytes % 16.7 %; Mean Corpuscular HGB Conc 32.3 g/dL (30.0-36.0); Mean Corpuscular Hemoglobin 29.6 pg (28.0-34.0); Mean Corpuscular Volume 91.6 fl (81-99); Mean Platelet Volume 13.6 fL (7.4-10.4); Monocytes # 0.3 10^3/uL (0.2-0.9); Monocytes % 9.8 %; Neutrophils # 1.81 10^3/uL (1.8-7.7); Neutrophils % 68.6 %; Nucleated Red Blood Cells % 0 %; Platelet Count 87 10^3/cmm (130-400); Red Blood Count 3.95 10^6/uL (4.1-5.3); Red Cell Distribution Width 14.6 % (12.1-15.1); White Blood Count 2.6 10^3/uL (4.0-10.0)
[2023-06-18 18:22] LABS: Alanine Aminotransferase 30 U/L (0-33); Albumin Level 3.8 g/dL (3.5-5.2); Alkaline Phosphatase 116 U/L (35-105); Anion Gap 11.8 (5-19); Aspartate Amino Transferase 44 U/L (0-32); Blood Urea Nitrogen 8 mg/dL (8-23); Calcium 8.9 mg/dL (8.5-10.5); Carbon Dioxide 28 mmol/L (22-29); Chloride 97 mmol/L (98-107); Globulin 2.5 g/dL (1.3-4.6); Glomerular Filtration Rate 50.2 mL/min (90-130); Glucose 129 mg/dL (65-115); Osmolality Calculated 276 mOsm/kg (285-295); Potassium 3.8 mmol/L (3.5-5.1); Sodium 133 mmol/L (136-145); Total Bilirubin 0.6 mg/dL (0.15-1.2); Total Protein 6.3 g/dL (6.6-8.7)
[2023-06-18 18:58] LABS: Slide Review Slide Review Perform
== END 2023-06-18 15:33 | disposition home or self-care (01) ==
PROVIDERS: PCP Family Medicine; Visit Provider Physician Assistant
DX: Z12.89 Encounter for screening for malignant neoplasm of other sites (principal); K75.4 Autoimmune hepatitis; K74.69 Other cirrhosis of liver
CPT/HCPCS: 36415; 74183; 80053; 85025; 85610; A9577

== ENCOUNTER → 2023-07-12 10:15 | Outpatient (BNVA) | payer MEDICARE, MEDICAID, SELFPAY | PROVIDERS: PCP Family Medicine; Visit Provider Anesthesiology Pain Medicine | DX: M54.42 Lumbago with sciatica, left side (principal); G89.29 Other chronic pain; M47.22 Other spondylosis with radiculopathy, cervical region; I65.22 Occlusion and stenosis of left carotid artery; M17.0 Bilateral primary osteoarthritis of knee; M47.812 Spondylosis without myelopathy or radiculopathy, cervical region; M48.56XD Collapsed vertebra, not elsewhere classified, lumbar region, subsequent encounter for fracture with routine healing; Z87.891 Personal history of nicotine dependence | CPT/HCPCS: 99213; 99214 ==

== ENCOUNTER → 2023-07-17 13:00 | Outpatient (BNVA) | payer MEDICARE, MEDICAID, SELFPAY | PROVIDERS: PCP Family Medicine; Visit Provider Internal Medicine Rheumatology | DX: M81.0 Age-related osteoporosis without current pathological fracture (principal); M25.569 Pain in unspecified knee; L93.1 Subacute cutaneous lupus erythematosus; Z79.899 Other long term (current) drug therapy; Z71.89 Other specified counseling; R76.8 Other specified abnormal immunological findings in serum; M17.0 Bilateral primary osteoarthritis of knee; N18.9 Chronic kidney disease, unspecified; Z86.73 Personal history of transient ischemic attack (TIA), and cerebral infarction without residual deficits; D75.9 Disease of blood and blood-forming organs, unspecified; D72.819 Decreased white blood cell count, unspecified; D69.6 Thrombocytopenia, unspecified; M54.41 Lumbago with sciatica, right side; K74.60 Unspecified cirrhosis of liver | CPT/HCPCS: 73562; 99214 ==

== ENCOUNTER → 2023-07-18 15:38 | Outpatient (BNVA) | payer MEDICARE, MEDICAID, SELFPAY | PROVIDERS: PCP Family Medicine; Visit Provider Internal Medicine | DX: I48.91 Unspecified atrial fibrillation (principal); Z79.01 Long term (current) use of anticoagulants; Z86.73 Personal history of transient ischemic attack (TIA), and cerebral infarction without residual deficits; I12.9 Hypertensive chronic kidney disease with stage 1 through stage 4 chronic kidney disease, or unspecified chronic kidney disease; N18.9 Chronic kidney disease, unspecified; Z87.891 Personal history of nicotine dependence | CPT/HCPCS: 99214 ==

== ENCOUNTER 2023-07-31 14:20 | Outpatient (CLI) | payer MEDICARE, MEDICAID, SELFPAY ==
--- NOTE | 2023-07-31 14:30 | XR_ITS ---
WS: [email or web address] SCREENING DEXA SCAN Partly CLINICAL INFORMATION: M81.0 - Age-related osteoporosis without current patholog... COMPARISON: 2018 FINDINGS: The L1-L4 bone mineral density measures 1.206 g/cm2. This corresponds to a T score score of 0.2 and Z score of 0.5. Left femoral neck bone mineral density measures 1.290 g/cm2. This corresponds to a T score of 2.2 and Z score of 2.5. Right femoral neck bone mineral density measures 1.324 g/cm2. This corresponds to a T score 2.5of and Z score of 2.8. Mean femoral neck bone mineral density measures 1.307 g/cm2. This corresponds to a T score of 2.4 and Z score of 2.6. IMPRESSION: Normal bone mineralization lumbar spine and femoral necks.. Patient's FRAX calculated 10 year probability for major osteoporotic fracture is 17.7% and osteoporot ic hip fracture is 0.1%.
== END 2023-07-31 14:21 | disposition home or self-care (01) ==
LOC: RAD 14:24
PROVIDERS: PCP Family Medicine; Visit Provider Internal Medicine Rheumatology
DX: Z13.820 Encounter for screening for osteoporosis (principal); M81.0 Age-related osteoporosis without current pathological fracture
CPT/HCPCS: 77080

== ENCOUNTER 2023-08-01 13:31 | Outpatient (CLI) | payer MEDICARE, MEDICAID, SELFPAY ==
--- NOTE | 2023-08-01 13:45 | USCV_ITS ---
Verónica Pat Age: 62 Gender: F : 1960 Exam Date: 08/01/2023 14:00 Ordering Phys: Jhonathan Mendoza M.D ([email or web address]) Technologist: W[place]ON [place] [facility] [place]: KNOWN LEFT ICA OCCLUSION Risk Factors: Previous Vascular Surgery: Right Brachial BP: / Left Brachial BP: / Right Left Velocity (cm/s) Spectral Plaque Velocity (cm/s) Spectral Plaque Syst/Diast Broadening Syst/Diast Broadening 141.10/25.40 Prox CCA 111.70/ 22.30 104.70/24.30 Mid CCA 92.30 / 9.40 81.60/ 18.70 Distal CCA 60.40 / 16.80 83.80/ 18.80 Prox ICA 32.60 / 5.20 112.50/35.00 Mid ICA 0.00 / 0.00 93.10/ 20.50 Distal ICA 0.00 / 0.00 122.20 ECA 92.20 0.80 ICA/CCA 0.29 Antegrade Vertebral Antegrade 54.70/ 12.00 cm/s 81.20/ 17.10 cm/s Tri Subclavian Tri 138.0 104.3 0 0 FINDINGS No changes since 08/09/22 CONCLUSIONS Right ICA stenosis <50%. Mild atheromatous plaque right carotid bulb/ICA. Left ICA is occluded. Left CCA is patent. Normal antegrade Doppler flow noted in the right vertebral artery. Normal antegrade Doppler flow noted in the left vertebral artery. Venkata Verdin MD (Electronically Signed) Final Date: 01 August 2023 16:14 S
== END 2023-08-01 13:32 | disposition home or self-care (01) ==
LOC: RAD 13:34
PROVIDERS: PCP Family Medicine; Visit Provider Internal Medicine
DX: I65.23 Occlusion and stenosis of bilateral carotid arteries (principal); I65.22 Occlusion and stenosis of left carotid artery
CPT/HCPCS: 93880

== ENCOUNTER 2023-08-17 16:25 | Outpatient (CLI) | payer MEDICARE, MEDICAID, SELFPAY ==
[2023-08-17 17:03] LABS: Eosinophils # 0.1 10^3/uL (0.0-0.8); Eosinophils % 2.4 %; Hematocrit 35.5 % (36-47); Lymphocytes # 0.3 10^3/uL (0.8-4.8); Lymphocytes % 9.3 %; Mean Corpuscular HGB Conc 32.4 g/dL (30-55); Mean Corpuscular Hemoglobin 29.9 pg (27-33); Mean Corpuscular Volume 92.4 fl (85-98); Mean Platelet Volume 12.9 fL (7.4-10.4); Monocytes # 0.3 10^3/uL (0.2-0.9); Monocytes % 9.7 %; Neutrophils # 2.23 10^3/uL (1.8-7.7); Neutrophils % 77.3 %; Nucleated Red Blood Cells % 0 %; Platelet Count 87 10^3/cmm (157-399); Red Blood Count 3.84 10^6/uL (3.85-5.65); Red Cell Distribution Width 15.2 % (12.1-15.1); White Blood Count 2.89 10^3/uL (3.29-11.43)
[2023-08-17 17:11] LABS: Alanine Aminotransferase 44 U/L (0-33); Alkaline Phosphatase 117 U/L (35-105); Anion Gap 14.2 (5-19); Aspartate Amino Transferase 56 U/L (0-32); Blood Urea Nitrogen 7 mg/dL (8-23); Carbon Dioxide 29 mmol/L (22-29); Chloride 101 mmol/L (98-107); Globulin 2.5 g/dL (1.3-4.6); Glomerular Filtration Rate 50.2 mL/min (90-130); Glucose 126 mg/dL (65-115); Osmolality Calculated 290 mOsm/kg (285-295); Potassium 4.2 mmol/L (3.5-5.1); Sodium 140 mmol/L (136-145); Total Bilirubin 0.6 mg/dL (0.15-1.2); Total Protein 6.5 g/dL (6.6-8.7)
== END 2023-08-17 16:26 | disposition home or self-care (01) ==
PROVIDERS: PCP Family Medicine; Visit Provider Internal Medicine
DX: K75.4 Autoimmune hepatitis (principal)
CPT/HCPCS: 36415; 80053; 85025

== ENCOUNTER → 2023-08-29 11:14 | Outpatient (BNVA) | payer MEDICARE, MEDICAID, SELFPAY | PROVIDERS: PCP Family Medicine; Visit Provider Anesthesiology Pain Medicine | DX: M79.18 Myalgia, other site (principal); M47.22 Other spondylosis with radiculopathy, cervical region; M17.0 Bilateral primary osteoarthritis of knee; M47.812 Spondylosis without myelopathy or radiculopathy, cervical region | CPT/HCPCS: 20553; 99214; J1030; J3490 ==

== ENCOUNTER → 2023-09-17 14:22 | Outpatient (BNVA) | payer MEDICARE, MEDICAID, SELFPAY | PROVIDERS: PCP Family Medicine; Visit Provider Internal Medicine Rheumatology | DX: Z79.899 Other long term (current) drug therapy (principal); L93.1 Subacute cutaneous lupus erythematosus; Z71.89 Other specified counseling; R76.8 Other specified abnormal immunological findings in serum; M17.0 Bilateral primary osteoarthritis of knee | CPT/HCPCS: 82657; 99214 ==

== ENCOUNTER 2023-10-02 11:42 | Outpatient (CLI) | payer MEDICARE, MEDICAID, SELFPAY ==
[2023-10-02 12:22] LABS: Basophils % 0.8 %; Eosinophils # 0.1 10^3/uL (0.0-0.8); Hematocrit 39.2 % (36-47); Lymphocytes # 0.4 10^3/uL (0.8-4.8); Lymphocytes % 8.5 %; Mean Corpuscular HGB Conc 32.7 g/dL (30-55); Mean Corpuscular Hemoglobin 30.8 pg (27-33); Mean Corpuscular Volume 94.5 fl (85-98); Mean Platelet Volume 12.6 fL (7.4-10.4); Monocytes # 0.4 10^3/uL (0.2-0.9); Monocytes % 7.1 %; Neutrophils # 4.09 10^3/uL (1.8-7.7); Neutrophils % 81.2 %; Nucleated Red Blood Cells % 0 %; Platelet Count 115 10^3/cmm (157-399); Red Blood Count 4.15 10^6/uL (3.85-5.65); Red Cell Distribution Width 14.5 % (12.1-15.1); White Blood Count 5.04 10^3/uL (3.29-11.43)
[2023-10-02 12:43] LABS: Alanine Aminotransferase 33 U/L (0-33); Albumin Level 4.3 g/dL (3.5-5.2); Alkaline Phosphatase 108 U/L (35-105); Aspartate Amino Transferase 46 U/L (0-32); Globulin 2.7 g/dL (1.3-4.6); Glomerular Filtration Rate 63.2 mL/min (90-130); Total Bilirubin 0.9 mg/dL (0.15-1.2)
[2023-10-02 12:44] LABS: Alanine Aminotransferase 32 U/L (0-33); Albumin Level 4.3 g/dL (3.5-5.2); Alkaline Phosphatase 105 U/L (35-105); Anion Gap 16.5 (5-19); Aspartate Amino Transferase 45 U/L (0-32); Blood Urea Nitrogen 8 mg/dL (8-23); Calcium 9.9 mg/dL (8.5-10.5); Carbon Dioxide 26 mmol/L (22-29); Chloride 100 mmol/L (98-107); Globulin 2.7 g/dL (1.3-4.6); Glomerular Filtration Rate 63.2 mL/min (90-130); Glucose 99 mg/dL (65-115); Osmolality Calculated 284 mOsm/kg (285-295); Potassium 4.5 mmol/L (3.5-5.1); Sodium 138 mmol/L (136-145)
== END 2023-10-02 11:43 | disposition home or self-care (01) ==
LOC: LAB 11:45
PROVIDERS: Internal Medicine Rheumatology; PCP Family Medicine; Visit Provider Internal Medicine
DX: M32.9 Systemic lupus erythematosus, unspecified (principal); Z79.899 Other long term (current) drug therapy; M17.0 Bilateral primary osteoarthritis of knee; M47.22 Other spondylosis with radiculopathy, cervical region; M47.812 Spondylosis without myelopathy or radiculopathy, cervical region; I65.22 Occlusion and stenosis of left carotid artery; K74.60 Unspecified cirrhosis of liver
CPT/HCPCS: 20610; 36415; 80053; 80076; 82565; 85025; 86140; 99214; J1030; J3490

== ENCOUNTER 2023-11-15 12:18 | Outpatient (CLI) | payer MEDICARE, MEDICAID, SELFPAY ==
--- NOTE | 2023-11-15 12:30 | USCV_ITS ---
Verónica Pat Age: 62 Gender: F : 1960 Exam Date: 11/15/2023 12:43 Ordering Phys: Terrance Zamarripa MD Technologist: RONALD Exam Location: [facility] – [place] Indication: Hx of DVT. RT LE Swelling HISTORY: Lower extremity swelling. PROCEDURES: Venous duplex imaging was performed in only the right lower extremity. The following venous structures were evaluated: common femoral vein, profunda vein, proximal portion of the greater saphenous vein, superficial femoral vein, and the popliteal vein. In addition, the posterior tibial and peroneal trunk were evaluated. Serial compression, augmentation maneuvers, and spectral Doppler flow evaluation were performed. FINDINGS: No evidence of DVT seen in any vessel visualized at this time. CONCLUSIONS No evidence of right lower extremity DVT. Venkata Verdin MD (Electronically Signed) Final Date: 15 November 2023 13:41 S
== END 2023-11-15 12:19 | disposition home or self-care (01) ==
LOC: RAD 12:18
PROVIDERS: PCP Family Medicine; Visit Provider Internal Medicine Rheumatology
DX: Z86.718 Personal history of other venous thrombosis and embolism (principal); M79.89 Other specified soft tissue disorders
CPT/HCPCS: 93971

== ENCOUNTER → 2023-11-16 11:31 | Outpatient (BNVA) | payer MEDICARE, MEDICAID, SELFPAY | PROVIDERS: PCP Family Medicine; Visit Provider Internal Medicine Pulmonary Disease | DX: R06.02 Shortness of breath (principal); J98.4 Other disorders of lung; I26.09 Other pulmonary embolism with acute cor pulmonale; Z79.899 Other long term (current) drug therapy; K75.4 Autoimmune hepatitis; K74.69 Other cirrhosis of liver | CPT/HCPCS: 99214 ==

== ENCOUNTER 2023-12-21 13:51 | Outpatient (CLI) | payer MEDICARE, MEDICAID, SELFPAY ==
[2023-12-21 14:27] LABS: Basophils # 0.1 10^3/uL (0.0-0.1); Basophils % 1.1 %; Eosinophils # 0.2 10^3/uL (0.0-0.8); Eosinophils % 3.5 %; Hematocrit 38.8 % (36-47); Lymphocytes # 0.4 10^3/uL (0.8-4.8); Lymphocytes % 8.9 %; Mean Corpuscular HGB Conc 33.2 g/dL (30-55); Mean Corpuscular Hemoglobin 32.2 pg (27-33); Mean Corpuscular Volume 96.8 fl (85-98); Mean Platelet Volume 12.4 fL (7.4-10.4); Monocytes # 0.4 10^3/uL (0.2-0.9); Monocytes % 9.1 %; Neutrophils # 3.58 10^3/uL (1.8-7.7); Neutrophils % 77.2 %; Nucleated Red Blood Cells % 0 %; Platelet Count 111 10^3/cmm (157-399); Red Blood Count 4.01 10^6/uL (3.85-5.65); Red Cell Distribution Width 14.6 % (12.1-15.1); White Blood Count 4.63 10^3/uL (3.29-11.43)
[2023-12-21 14:45] LABS: Alanine Aminotransferase 23 U/L (0-33); Alkaline Phosphatase 112 U/L (35-105); Aspartate Amino Transferase 37 U/L (0-32); Blood Urea Nitrogen 8 mg/dL (8-23); Calcium 9.9 mg/dL (8.5-10.5); Carbon Dioxide 28 mmol/L (22-29); Chloride 97 mmol/L (98-107); Globulin 3.4 g/dL (1.3-4.6); Glomerular Filtration Rate 55.8 mL/min (90-130); Glucose 111 mg/dL (65-115); Immunoglobulin IGG 889 mg/dL (700-1600); Osmolality Calculated 285 mOsm/kg (285-295); Sodium 138 mmol/L (136-145); Total Bilirubin 0.9 mg/dL (0.15-1.2); Total Protein 7.4 g/dL (6.6-8.7)
[2023-12-21 15:07] LABS: INR 1.42 (0.8-1.2)
== END 2023-12-21 13:52 | disposition home or self-care (01) ==
LOC: LAB 13:54
PROVIDERS: PCP Family Medicine; Visit Provider Internal Medicine
DX: K75.4 Autoimmune hepatitis (principal)
CPT/HCPCS: 36415; 80053; 82784; 85025; 85610

== ENCOUNTER → 2024-01-28 12:58 | Outpatient (BNVA) | payer MEDICARE, SELFPAY | PROVIDERS: PCP Family Medicine; Visit Provider Internal Medicine | DX: I48.91 Unspecified atrial fibrillation (principal); Z79.01 Long term (current) use of anticoagulants; I12.9 Hypertensive chronic kidney disease with stage 1 through stage 4 chronic kidney disease, or unspecified chronic kidney disease; N18.9 Chronic kidney disease, unspecified; Z86.73 Personal history of transient ischemic attack (TIA), and cerebral infarction without residual deficits; Z87.891 Personal history of nicotine dependence | CPT/HCPCS: 99214 ==

== ENCOUNTER → 2024-02-05 11:17 | Outpatient (BNVA) | payer MEDICARE, SELFPAY | PROVIDERS: PCP Family Medicine; Visit Provider Internal Medicine Rheumatology | DX: M32.9 Systemic lupus erythematosus, unspecified; Z79.899 Other long term (current) drug therapy; Z71.89 Other specified counseling; R76.8 Other specified abnormal immunological findings in serum; M17.0 Bilateral primary osteoarthritis of knee | CPT/HCPCS: 99214 ==

== ENCOUNTER 2024-02-20 09:28 | Outpatient (CLI) | payer MEDICARE, SELFPAY ==
--- NOTE | 2024-02-20 09:53 | US_ITS ---
WS: [email or web address] RIGHT UPPER QUADRANT ULTRASOUND HISTORY: CIRRHOSIS. HCC COMPARISON: 10/13/2022 Liver: 16.3 cm in length. Liver is top normal size. Liver is extremely dense and heterogeneous. The e ntire liver is not well visualized due to poor acoustic windows. The surface is irregular suggesting cirrhosis. No mass identified but the entire liver is not visualized. Portal Vein: Normal hepatopetal flow with monophasic waveform. Gallbladder: Cholecystectomy. CBD: 0.7 cm Pancreas: Not well visualized due to body habitus. Right kidney: 9.0 cm in length. Normal size and echogenicity. No hydronephrosis or mass. Aorta and IVC: Unremarkable abdominal aorta and IVC. No ascites. IMPRESSION: 1. Very difficult and limited evaluation of the RIGHT upper quadrant. 2. Prior cholecystectomy. 3. Dense heterogeneous liver with surface nodularity consistent with cirrhosis. The entire liver is poorly visualized due to the increased attenuation.
== END 2024-02-20 09:29 | disposition home or self-care (01) ==
LOC: RAD 09:28
PROVIDERS: PCP Family Medicine; Visit Provider Internal Medicine
DX: K74.60 Unspecified cirrhosis of liver (principal); K75.4 Autoimmune hepatitis; Z90.49 Acquired absence of other specified parts of digestive tract
CPT/HCPCS: 36415; 76705

== ENCOUNTER 2024-03-28 14:46 | Outpatient (CLI) | payer MEDICARE, SELFPAY ==
--- NOTE | 2024-03-28 15:00 | MM_ITS ---
WS: [email or web address] BILATERAL 3D TOMOSYNTHESIS DIGITAL SCREENING MAMMOGRAPHY WITH CAD CLINICAL INFORMATION: SCREENING HISTORY: Screening mammogram. No current complaints. COMPARISON: 2021 TECHNIQUE: Bilateral CC and MLO views. FINDINGS: Scattered fibroglandular densities bilaterally. No suspicious focal mass, asymmetry, calcifications, or architectural distortion. No evidence of malignancy. A few incidental punctate calcifications. Vas cular calcifications. MM/[place] [id number] IMPRESSION: BI-RADS: 2-Benign FOLLOW UP: 1 Year Follow-up Recommend return to annual screening mammography.
== END 2024-03-28 14:47 | disposition home or self-care (01) ==
LOC: RAD 14:49
PROVIDERS: PCP Family Medicine; Visit Provider Family Medicine
DX: Z12.31 Encounter for screening mammogram for malignant neoplasm of breast (principal)
CPT/HCPCS: 77063; 77067

== ENCOUNTER → 2024-05-08 14:00 | Outpatient (BNVA) | payer MEDICARE, SELFPAY | PROVIDERS: PCP Family Medicine; Visit Provider Nurse Practitioner Family | DX: L30.9 Dermatitis, unspecified (principal); M32.9 Systemic lupus erythematosus, unspecified; L57.8 Other skin changes due to chronic exposure to nonionizing radiation; L81.4 Other melanin hyperpigmentation | CPT/HCPCS: 11104; 99204 ==

== ENCOUNTER → 2024-05-20 13:50 | Outpatient (BNVA) | payer MEDICARE, SELFPAY | PROVIDERS: PCP Family Medicine; Visit Provider Nurse Practitioner Family | DX: L93.1 Subacute cutaneous lupus erythematosus (principal); Z48.02 Encounter for removal of sutures; M32.9 Systemic lupus erythematosus, unspecified; L57.8 Other skin changes due to chronic exposure to nonionizing radiation | CPT/HCPCS: 99213 ==

== ENCOUNTER 2024-07-11 13:40 | Outpatient (CLI) | payer MEDICARE, SELFPAY ==
--- NOTE | 2024-07-11 13:56 | MR_ITS ---
WS: [email or web address] MRI ABDOMEN WITH AND WITHOUT CONTRAST. COMPARISON: 03/08/2022, 06/18/2023 Multiplanar, multisequence imaging is performed with and without contrast. MultiHance 20 mL IV. Liver is mildly enlarged. The LEFT lobe is enlarged and the caudate lobe is mildly enlarged extending to the midline. Surface of the liver is very minimally lobular. On the postcontrast imaging there is breathing motion artifact. No enhancing masses or signal abnormality is identified. The portal vein is patent. No intrahepatic bile duct dilatation. The spleen continues to be enlarged measuring 17.8 cm in length. There is mild contact on the LEFT ki dney with slight displacement. No adrenal mass. Normal pancreas. No renal obstruction. Visualized abd ominal aorta is normal. Mesenteric arteries are well visualized. There is no ascites. No pleural effusions. The heart is normal size. MR/MR abdomen wo/w con* [id number] IMPRESSION: 1. Mildly cirrhotic liver with no enhancing mass or signal abnormality. 2. Continued marked splenomegaly, 17.8 cm in length. Changes of portal venous hypertension. 3. Portal vein is patent. 4. No ascites or adenopathy.
[2024-07-11 15:57] LABS: Basophils % 0.4 %; Eosinophils % 0.5 %; Hematocrit 41.2 % (36-47); Lymphocytes # 0.2 10^3/uL (0.8-4.8); Lymphocytes % 3.5 %; Mean Corpuscular Volume 97.2 fl (85-98); Mean Platelet Volume 12.6 fL (7.4-10.4); Monocytes # 0.4 10^3/uL (0.2-0.9); Monocytes % 6.9 %; Neutrophils # 5.01 10^3/uL (1.8-7.7); Neutrophils % 88.2 %; Nucleated Red Blood Cells % 0 %; Platelet Count 108 10^3/cmm (157-399); Red Blood Count 4.24 10^6/uL (3.85-5.65); Red Cell Distribution Width 15.3 % (12.1-15.1); White Blood Count 5.68 10^3/uL (3.29-11.43)
[2024-07-11 16:20] LABS: Alanine Aminotransferase 42 U/L (0-33); Albumin Level 4.3 g/dL (3.5-5.2); Alkaline Phosphatase 97 U/L (35-105); Aspartate Amino Transferase 51 U/L (0-32); Globulin 2.6 g/dL (1.3-4.6); Total Bilirubin 1.1 mg/dL (0.15-1.2); Total Protein 6.9 g/dL (6.6-8.7)
== END 2024-07-11 13:41 | disposition home or self-care (01) ==
LOC: RAD 13:49
PROVIDERS: Internal Medicine Rheumatology; PCP Family Medicine; Visit Provider Internal Medicine
DX: K74.60 Unspecified cirrhosis of liver (principal); Z79.899 Other long term (current) drug therapy; M32.9 Systemic lupus erythematosus, unspecified; R16.1 Splenomegaly, not elsewhere classified
CPT/HCPCS: 36415; 74183; 80076; 82565; 85025; 86140; A9577

== ENCOUNTER → 2024-07-15 11:04 | Outpatient (BNVA) | payer MEDICARE, SELFPAY | PROVIDERS: PCP Family Medicine; Visit Provider Internal Medicine Rheumatology | DX: L93.1 Subacute cutaneous lupus erythematosus (principal); Z79.899 Other long term (current) drug therapy; Z71.85 Encounter for immunization safety counseling; R76.8 Other specified abnormal immunological findings in serum; M17.0 Bilateral primary osteoarthritis of knee; N18.9 Chronic kidney disease, unspecified | CPT/HCPCS: 99215 ==

== ENCOUNTER → 2024-07-29 14:15 | Outpatient (BNVA) | payer MEDICARE, SELFPAY | PROVIDERS: PCP Family Medicine; Visit Provider Internal Medicine | DX: I48.91 Unspecified atrial fibrillation (principal); I10 Essential (primary) hypertension; Z86.73 Personal history of transient ischemic attack (TIA), and cerebral infarction without residual deficits; Z87.891 Personal history of nicotine dependence | CPT/HCPCS: 99214 ==

== ENCOUNTER 2024-08-20 14:34 | Outpatient (CLI) | payer MEDICARE, MEDICAID, SELFPAY ==
[2024-08-20 14:53] LABS: Basophils # 0.1 10^3/uL (0.0-0.1); Basophils % 0.7 %; Eosinophils # 0.1 10^3/uL (0.0-0.8); Hematocrit 41.6 % (36-47); Lymphocytes # 0.6 10^3/uL (0.8-4.8); Lymphocytes % 8.4 %; Mean Corpuscular HGB Conc 33.4 g/dL (30-55); Mean Corpuscular Hemoglobin 32.3 pg (27-33); Mean Corpuscular Volume 96.5 fl (85-98); Mean Platelet Volume 11.6 fL (7.4-10.4); Monocytes # 0.7 10^3/uL (0.2-0.9); Monocytes % 9.8 %; Neutrophils # 5.58 10^3/uL (1.8-7.7); Neutrophils % 79.7 %; Nucleated Red Blood Cells % 0 %; Platelet Count 132 10^3/cmm (157-399); Red Blood Count 4.31 10^6/uL (3.85-5.65); Red Cell Distribution Width 14.7 % (12.1-15.1); White Blood Count 7.01 10^3/uL (3.29-11.43)
[2024-08-20 14:54] LABS: Bilirubin Urine Negative (Negative); Blood Urine Negative (Negative); Glucose Urine UA Negative (Normal); Ketones Urine Negative (Negative); Leukocyte Esterase Urine Negative (Negative); Nitrate Urine Negative (Negative); Protein Urine Negative (Negative); Specific Gravity, Urine 1.006 (1.005-1.030); Urine Appearance Clear (CLEAR); Urine Color Yellow (Yellow); Urobilinogen Urine 0.2 mg/dL (Negative); pH Urine 5.5 (5-7)
[2024-08-20 14:59] LABS: Bacteria Urine None Seen /hpf; RBC Urine 0-2 /hpf (0-2); Squamous Epithelial Cell Urine 0-5 /hpf (0-5); WBC Urine 0-5 /hpf (0-5)
[2024-08-20 15:05] LABS: Erythrocyte Sedimentation Rate 23 mm/hr (0-15)
[2024-08-20 15:13] LABS: Alanine Aminotransferase 46 U/L (0-33); Albumin Level 4.1 g/dL (3.5-5.2); Alkaline Phosphatase 82 U/L (35-105); Aspartate Amino Transferase 37 U/L (0-32); C Reactive Protein 3.3 mg/L (0.0-4.9); Globulin 2.8 g/dL (1.3-4.6); Total Bilirubin 1.2 mg/dL (0.15-1.2); Total Protein 6.9 g/dL (6.6-8.7)
[2024-08-20 15:14] LABS: Urine Creatinine 24 mg/dL (28-217); Urine Protein Random 4 mg/dL
[2024-08-20 15:26] LABS: Complement C3 170 mg/dL (90-180)
== END 2024-08-20 14:35 | disposition home or self-care (01) ==
LOC: LAB 14:36
PROVIDERS: PCP Family Medicine; Visit Provider Internal Medicine Rheumatology
DX: Z79.899 Other long term (current) drug therapy (principal); M32.9 Systemic lupus erythematosus, unspecified; R76.8 Other specified abnormal immunological findings in serum
CPT/HCPCS: 36415; 80076; 81001; 82565; 82570; 84156; 85025; 85651; 86140; 86160

== ENCOUNTER → 2025-01-20 12:39 | Outpatient (BNVA) | payer MEDICARE, MEDICAID, SELFPAY | PROVIDERS: PCP Family Medicine; Visit Provider Internal Medicine Rheumatology | DX: L93.1 Subacute cutaneous lupus erythematosus (principal); M32.9 Systemic lupus erythematosus, unspecified; Z79.899 Other long term (current) drug therapy; Z71.89 Other specified counseling; R76.8 Other specified abnormal immunological findings in serum; M17.0 Bilateral primary osteoarthritis of knee | CPT/HCPCS: 36415; 80076; 82565; 85025; 85651; 86140; 99214 ==

== ENCOUNTER 2025-01-23 13:18 | Outpatient (CLI) | payer MEDICARE, SELFPAY ==
--- NOTE | 2025-01-23 13:26 | US_ITS ---
WS: [email or web address] Complete ABDOMINAL ULTRASOUND HISTORY: unspecified cirrhosis of liver COMPARISON: 02/20/2024, 10/13/2022 Liver: 15.3 cm in length. Normal size liver. Nodular surface of the liver which can be seen with cirrhosis. No mass identified or intrahepatic duct dilatation. Portal Vein: Normal hepatopetal flow with monophasic waveform. Gallbladder: Prior cholecystectomy. CBD: 0.4 cm Pancreas: As visualized normal. Right kidney: 9.2 cm x 4.5 x 4.4 cm. Cortex:1.0 cm. Normal size and echogenicity. No hydronephrosis or mass. Left kidney: 10.2 cm x 4.2 cm x 4.5 cm. Cortex: 1.2 cm. Normal size kidney with mild cortical thinning. No obstruction. Spleen: 15.6 cm. Normal size and echogenicity. Aorta and IVC: Unremarkable abdominal aorta and IVC. US/US abdomen complete* [id number] Impression: 1. Cirrhotic liver with no intrahepatic mass. 2. Normal hepatopetal flow of the portal vein. 3. Spleen is slightly enlarged at 15.6 cm. Similar enlargement on prior studie s. 4. Prior cholecystectomy.
== END 2025-01-23 13:19 | disposition home or self-care (01) ==
LOC: RAD 13:19
PROVIDERS: PCP Family Medicine; Visit Provider Internal Medicine
DX: K75.4 Autoimmune hepatitis (principal); R93.2 Abnormal findings on diagnostic imaging of liver and biliary tract; R16.1 Splenomegaly, not elsewhere classified; Z90.49 Acquired absence of other specified parts of digestive tract
CPT/HCPCS: 76700

== ENCOUNTER 2025-02-11 14:00 | Outpatient (CLI) | payer MEDICARE, MEDICAID, SELFPAY ==
--- NOTE | 2025-02-11 14:08 | US_ITS ---
WS: [email or web address] ULTRASOUND SOFT TISSUES LEFT lateral face and neck. HISTORY: EDEMA COMPARISON: None available. TECHNIQUE: 2-D and color Doppler imaging is submitted. Ultrasound directed over the LEFT face and neck in the area of concern. There is no fluid collection or mass. No obvious edema in the subcutaneous soft tissues by ultrasound. US/US soft tissue head neck [id number] IMPRESSION: Normal soft tissue ultrasound of the LEFT lateral face and neck.
== END 2025-02-11 14:01 | disposition home or self-care (01) ==
LOC: RAD 14:05
PROVIDERS: PCP Family Medicine; Visit Provider Family Medicine
DX: R60.9 Edema, unspecified (principal)
CPT/HCPCS: 76536

== ENCOUNTER 2025-05-19 16:21 | Outpatient (CLI) | payer MEDICARE, MEDICAID, SELFPAY ==
[2025-05-19 16:56] LABS: Basophils % 0.5 %; Eosinophils # 0.1 10^3/uL (0.0-0.8); Eosinophils % 1.2 %; Hematocrit 36.1 % (36-47); Lymphocytes # 0.3 10^3/uL (0.8-4.8); Lymphocytes % 7.2 %; Mean Corpuscular Volume 90.3 fl (85-98); Mean Platelet Volume 13.7 fL (7.4-10.4); Monocytes # 0.3 10^3/uL (0.2-0.9); Monocytes % 7.7 %; Neutrophils # 3.35 10^3/uL (1.8-7.7); Neutrophils % 83.2 %; Nucleated Red Blood Cells % 0 %; Platelet Count 85 10^3/cmm (157-399); Red Cell Distribution Width 14.8 % (12.1-15.1); White Blood Count 4.03 10^3/uL (3.29-11.43)
[2025-05-19 17:03] LABS: Slide Review Slide Review Perform
[2025-05-19 17:04] LABS: Erythrocyte Sedimentation Rate 42 mm/hr (0-15)
[2025-05-19 17:44] LABS: 25 Hydroxy Vitamin D 40 ng/mL (30-100); Alanine Aminotransferase 29 U/L (0-33); Albumin Level 4.1 g/dL (3.5-5.2); Alkaline Phosphatase 109 U/L (35-105); Aspartate Amino Transferase 37 U/L (0-32); Bilirubin Direct 0.45 mg/dL (0.00-0.30); C Reactive Protein 10.4 mg/L (0.0-4.9); Globulin 2.5 g/dL (1.3-4.6); Glomerular Filtration Rate 62.8 mL/min (90-130); Total Protein 6.6 g/dL (6.6-8.7)
[2025-05-19 19:43] LABS: Hepatitis C Virus Antibody Non-Reactive (Nonreactive)
[2025-05-19 20:14] LABS: Hepatitis B Core AB, Total Non-Reactive (Nonreactive); Hepatitis B Surface Antigen Non-Reactive (Nonreactive)
== END 2025-05-19 16:22 | disposition home or self-care (01) ==
PROVIDERS: PCP Family Medicine; Visit Provider Internal Medicine Rheumatology
DX: K74.69 Other cirrhosis of liver (principal); Z79.899 Other long term (current) drug therapy; L93.1 Subacute cutaneous lupus erythematosus
CPT/HCPCS: 80076; 82306; 82565; 85025; 85651; 86140; 86480; 86704; 86803; 87340

== ENCOUNTER → 2025-05-27 13:36 | Outpatient (BNVA) | payer MEDICARE, MEDICAID, SELFPAY | PROVIDERS: PCP Family Medicine; Visit Provider Internal Medicine | DX: I48.91 Unspecified atrial fibrillation (principal); Z79.01 Long term (current) use of anticoagulants; I10 Essential (primary) hypertension; Z86.73 Personal history of transient ischemic attack (TIA), and cerebral infarction without residual deficits; Z87.891 Personal history of nicotine dependence | CPT/HCPCS: 99214 ==

== ENCOUNTER 2025-06-30 14:47 | Outpatient (CLI) | payer MEDICARE, MEDICAID, SELFPAY ==
--- NOTE | 2025-06-30 14:53 | MR_ITS ---
WS: [email or web address] MRI HEAD WITH CONTRAST WITH ATTENTION TO THE INTERNAL AUDITORY CANALS TECHNIQUE: Sagittal T1, T2 axial, T2 axial flair, axial susceptibility weighted imaging, axial diffusion weighted images, and coronal T2 images were obtained. Pre and post T1 axial and post T1 coronal images. ADC and FSPGR images. Post gadolinium images with attention to the internal auditory canals. Axial fiesta imaging. CLINICAL INFORMATION: SENSORINEURAL HEARING LOSS/HX OF ACOUSTIC NEUROMA ON THE LEF COMPARISON: 2021 FINDINGS: Paranasal sinuses and mastoid air cells are well aerated. Prior postoperative changes resection of a LEFT acoustic schwannoma with LEFT retromastoid craniotomy with mesh placement. Postoperative changes involving the LEFT porous acusticus. No evidence of recurrent IAC or CP angle mass. Normal trigeminal nerve root entry zones. No abnormal intracranial enhancement No evidence of restricted diffusion to suggest acute ischemia. Ventricular system and basal cisterns are patent. Mild small vessel changes. Wallerian degeneration LEFT midbrain. Laminar necrosis in the LEFT merino radiata and basal ganglia in the area of prior infarct. Associated hemosiderin. No abnormal intracranial enhancement. Chronic occlusion LEFT ICA at the skull base unchanged. MR/MR iac's wo/w con* [id number] IMPRESSION: 1. No evidence of residual or recurrent schwannoma. LEFT IAC is unchanged in a ppearance compared to previous. 2. Stable postoperative changes along the LEFT porous acusticus. 3. Chronic LEFT ICA occlusion unchanged. 4. Chronic infarct in the LEFT merino radiata with encephalomalacia and gliosi s with associated hemosiderin unchanged
--- NOTE | 2025-06-30 15:00 | USCV_ITS ---
Verónica Pat Age: 64 Gender: F : 1960 Exam Date: 06/30/2025 16:05 Ordering Phys: Jhonathan Mendoza M.D ([email or web address]) Technologist: RONALD Exam Location: [facility] [place] Indication: CP, SoB BP: 128 / 60 HR: 74 Rhythm: Sinus Technical Quality: Adequate MEASUREMENTS (Male / Female) Normal Values 2D ECHO LV Diastolic Diameter PLAX 5.0 cm 4.2 - 5.9 / 3.9 - 5.3 cm IVS Diastolic Thickness 0.9 cm 0.6 - 1.0 / 0.6 - 0.9 cm IVS Systolic Thickness 1.1 cm LVPW Diastolic Thickness 1.2 cm 0.6 - 1.0 / 0.6 - 0.9 cm LVPW Systolic Thickness 1.5 cm LVOT Diameter 2.0 cm LV Ejection Fraction 2D Teich 63.1 % LV Ejection Fraction MOD 4C 59.1 % LV Ejection Fraction MOD 2C 72.1 % LV Ejection Fraction 2C AL 73.7 % LA Diameter 3.5 cm RA Systolic Volume 4C AL 46.0 ml RA Systolic Volume 4C MOD 45.5 ml LA Sys Volume AL 81.5 cm cubed LA Sys Volume Index AL 32.6 cm cubed/m squared Aorta at Sinotubular Diameter 2.3 cm IVC Diameter 1.7 cm M-MODE LA Ao Ratio MM 1.3 AV Cusp Separation MM 2.1 cm DOPPLER AV Peak Velocity 189.0 cm/s LVOT Peak Velocity 112.0 cm/s AV Area Cont Eq vti 1.7 cm squared AV Area Cont Eq pk 1.8 cm squared MV Peak Velocity 107.0 cm/s MV Area PHT 3.6 cm squared Mitral E to A Ratio 0.9 TR Peak Velocity 164.0 cm/s TR Peak Gradient 10.8 mmHg TV Peak E Velocity 85.0 cm/s PV Peak Velocity 121.0 cm/s FINDINGS Left Ventricle Left ventricle is normal in size. LV systolic function is normal with EF of 55 to 60%. No regional wall motion abnormalities. Right Ventricle Normal in size and function Right Atrium Normal in size Left Atrium Normal in size Mitral Valve Grossly normal. Mild mitral regurgitation. Aortic Valve Grossly normal. No significant stenosis or regurgitation. Tricuspid Valve Insufficient TR jet to calculate RVSP Pulmonic Valve Not well visualized Pericardium Normal Aorta Normal in size IVC Appears to be normal CONCLUSIONS LV systolic function is normal with EF of 55-60% Mild mitral regurgitation Jhonathan Mendoza MD (Electronically Signed) Final Date: 01 July 2025 11:29 S
[2025-06-30] MEDS: gadobenate dimeglumine 20 mL vial IV (15:46)
== END 2025-06-30 14:48 | disposition home or self-care (01) ==
LOC: RAD 14:48
PROVIDERS: PCP Family Medicine; Visit Provider Nurse Practitioner Family
DX: H90.A21 Sensorineural hearing loss, unilateral, right ear, with restricted hearing on the contralateral side (principal); I34.0 Nonrheumatic mitral (valve) insufficiency; Z86.018 Personal history of other benign neoplasm; G93.89 Other specified disorders of brain; I65.22 Occlusion and stenosis of left carotid artery
CPT/HCPCS: 70553; 93306

== ENCOUNTER 2025-07-03 13:53 | Outpatient (CLI) | payer OTHER, MEDICAID, SELFPAY ==
--- NOTE | 2025-07-03 14:02 | MM_ITS ---
WS: [id number] BILATERAL 3D TOMOSYNTHESIS DIGITAL SCREENING MAMMOGRAPHY WITH CAD CLINICAL INFORMATION: SCREENING HISTORY: Screening mammogram. No current complaints. COMPARISON: 2023 TECHNIQUE: Bilateral CC and MLO views. FINDINGS: Scattered fibroglandular densities bilaterally. No suspicious focal mass, asymmetry, calcifications, or architectural distortion. No evidence of malignancy. Vascular calcifications. Incidental punctate calcifications. MM/MM scr tomosynthesis [id number] IMPRESSION: DENSITY: There are scattered areas of fibroglandular density. BI-RADS: 2 - Benign. FOLLOW UP: 1 Year Follow-up Recommend return to annual screening mammography.
== END 2025-07-03 13:54 | disposition home or self-care (01) ==
PROVIDERS: PCP Family Medicine; Visit Provider Family Medicine
DX: Z12.31 Encounter for screening mammogram for malignant neoplasm of breast (principal)
CPT/HCPCS: 77063; 77067

== ENCOUNTER 2025-08-04 13:11 | Outpatient (CLI) | payer OTHER, MEDICAID, SELFPAY ==
--- NOTE | 2025-08-04 13:16 | XR_ITS ---
WS: [id number] DEXA (DUAL ENERGY X-RAY ABSORPTIOMETRY) Bone mineral density was performed using a [email or web address] machine. HISTORY: POSTMENOPAUSAL COMPARISON: 07/31/2023 Lumbar spine BMD (L1-L4): 1.131 g/cm2 T score: -0.4 Z score: 0.0 Total hip BMD: Left: 1.174 g/cm2. T score: 1.3 Z score: 1.7 Right: 1.183 g/cm2. T score: 1.4 Z score: 1.8 10 year probability of a major osteoporotic fracture is 17.8%. Compared to the prior study from 07/31/2023. Lumbar spine bone mineral density has decreased by 6.2%. Bilateral hips bone mineral density has decreased by 9.8%. XR/XR DEXA axial skeleton* [id number] IMPRESSION: NORMAL BONE MINERAL DENSITY based upon the WHO classification for females. Significant decrease in bone mineral density within the lumbar spine and hips s bulmaro the prior study.
== END 2025-08-04 13:12 | disposition home or self-care (01) ==
LOC: RAD 13:12
PROVIDERS: PCP Family Medicine; Visit Provider Family Medicine
DX: Z78.0 Asymptomatic menopausal state (principal)
CPT/HCPCS: 77080

== ENCOUNTER 2025-08-26 13:06 | Outpatient (CLI) | payer OTHER, MEDICAID, SELFPAY | END 2025-08-26 13:07 | disposition home or self-care (01) | LOC: SLEEP 13:08 | PROVIDERS: PCP Family Medicine; Referring Provider Family Medicine; Visit Provider Internal Medicine Pulmonary Disease | DX: G47.33 Obstructive sleep apnea (adult) (pediatric) (principal) | CPT/HCPCS: G0399 ==

== ENCOUNTER 2025-09-28 16:17 | Outpatient (CLI) | payer OTHER, MEDICAID, SELFPAY ==
--- NOTE | 2025-09-28 16:24 | XRR_ITS ---
PROCEDURE INFORMATION: Exam: XR Chest Exam date and time: 09/28/2025 4:29 PM Age: 64 years old Clinical indication: Cough and shortness of breath; Cough & SOB x few months. TECHNIQUE: Imaging protocol: Radiologic exam of the chest. Views: 2 views. COMPARISON: CT chest abdpel w/*[id number] 03/22/2023 8:21 PM FINDINGS: Lungs: Calcified granuloma right apex. No consolidation. No overt pulmonary edema. Pleural spaces: Unremarkable. No pleural effusion. No pneumothorax. Heart/Mediastinum: Unremarkable. No cardiomegaly. Bones/joints: Unremarkable. XR/XR chest 2V* [id number] IMPRESSION: No acute findings.
== END 2025-09-28 16:18 | disposition home or self-care (01) ==
PROVIDERS: PCP Family Medicine; Visit Provider Family Medicine
DX: R05.8 Other specified cough (principal); J84.10 Pulmonary fibrosis, unspecified
CPT/HCPCS: 71046